=== PATIENT | female | born 2000 | race Caucasian/White ===

== ENCOUNTER 2019-03-29 22:33 | Inpatient (IN) | payer OTHER ==
[2019-03-29] MEDS ORDERED: SODIUM CHLORIDE 0.9% 1,000 ML IV STA (22:59)
[2019-03-29] MEDS ORDERED: NALOXONE 0.4 MG/ML 1 ML VIAL IV STA (23:00)
[2019-03-29 23:13] LABS: Basophils # (A) 0.1 k/uL (0-0.2); Basophils % (A) 1 %; Eosinophils # (A) 0.2 k/uL (0-0.7); Eosinophils % (A) 2 %; HCT 43.8 % (34.0-46.0); HGB 14.3 gm/dL (11.4-16.0); Lymphocytes # (A) 4.7 k/uL (1.0-4.8); Lymphocytes % (A) 38 %; MCH 29.9 pg (25.0-35.0); MCHC 32.7 g/dL (31.0-37.0); MCV 91.5 fL (80.0-100.0); Mean Platelet Volume 7.1; Monocytes # (A) 0.6 k/uL (0-1.0); Monocytes % (A) 5 %; Neutrophils # (A) 6.3 k/uL (1.3-7.7); Neutrophils % (A) 52 %; Platelet Count 303 k/uL (150-450); RBC 4.79 m/uL (3.80-5.40); WBC 12.3 k/uL (4.0-11.0)
--- NOTE | 2019-03-29 23:13 | ED ---
Overdose HPI - General Chief Complaint: Overdose Stated Complaint: Overdose Time Seen by Provider: 03/29/19 22:48 Source: patient Mode of arrival: wheelchair Limitations: altered mental status - History of Present Illness Initial Comments: Patient is 18-year-old woman reportedly with history of bipolar disorder, who was recently changed from her previous psychiatric medicine to lithium. The history is from the patient's grandmother as the patient presents with suspected delirium. Patient's grandmother states that the patient recently had a breakup in her relationship. Over the past few days to a week she has also displayed some change from her baseline, namely she has been somewhat paranoid and then describing conspiracy there is about people working against her. Tonight she reportedly overdosed a little over an hour before they arrived here. Patient reportedly had taken all of her lithium and also possibly some clonidine. Again the patient is delirious and not able to add any history. MD Complaint: other (Suspected overdose) -: unknown How Overdose Was Discovered: family/friend present at time Context: Intentional Overdose: relationship problems Treatments Prior to Arrival: none - Related Data Home Medications Medication Instructions Recorded Confirmed Cholecalciferol [Vitamin D3 (25 5,000 unit PO DAILY 03/29/19 03/29/19 Mcg = 1000 Iu)] Cyanocobalamin (Vitamin B-12) 1,000 mcg PO DAILY 03/29/19 03/29/19 [Vitamin B-12] Ibuprofen [Motrin] 800 mg PO TID PRN 03/29/19 03/29/19 My[place]le Carbonate ER [Lithobid] 450 mg PO HS 03/29/19 03/29/19 cloNIDine HCL [Catapres] 0.1 mg PO HS 03/29/19 03/29/19 Allergies Allergy/AdvReac Type Severity Reaction Status Date / Time Milk Containing Products Allergy Unknown Verified 03/29/19 22:48 [Dairy] Childhood Review of Systems ROS Statement: Those systems with pertinent positive or pertinent negative responses have been documented in the HPI. ROS Other: All systems not noted in ROS Statement are negative. Limitations: ROS unobtainable due to patients medical condition Respiratory: Denies: dyspnea Cardiovascular: Denies: chest pain Gastrointestinal: Denies: abdominal pain Neurological: Denies: headache Psychiatric: Reports: suicidal thoughts, other (Paranoia and delusional thoughts) Past Medical History Past Medical History: No Reported History History of Any Multi-Drug Resistant Organisms: None Reported Past Surgical History: No Surgical Hx Reported Past Psychological History: Bipolar, Depression Smoking Status: Current some day smoker Past Alcohol Use History: None Reported Past Drug Use History: Marijuana General Exam Limitations: altered mental status General appearance: obtunded Head exam: Present: atraumatic, normocephalic Eye exam: Present: normal appearance. Absent: scleral icterus, conjunctival injection Pupils: Present: miosis ENT exam: Present: mucous membranes dry Neck exam: Present: normal inspection, other (No evidence of trauma). Absent: tenderness Respiratory exam: Present: normal lung sounds bilaterally. Absent: respiratory distress, wheezes, rales, rhonchi, stridor Cardiovascular Exam: Present: regular rate, normal rhythm, normal heart sounds. Absent: systolic murmur, diastolic murmur, rubs, gallop GI/Abdominal exam: Present: soft. Absent: distended, tenderness, guarding, rebound, rigid, mass Extremities exam: Present: normal inspection, normal capillary refill. Absent: pedal edema, calf tenderness Back exam: Present: normal inspection. Absent: CVA tenderness (R), CVA tenderness (L) Neurological exam: Present: altered, reflexes normal, other (GCS is 11 (E=2, V=4, M=5). Patient not able to cooperate with neurologic exam due to altered mental status). Absent: motor sensory deficit Skin exam: Present: warm, dry, intact, normal color. Absent: rash Course Vital Signs 03/29/19 03/29/19 03/29/19 22:38 23:00 23:19 Temperature 97.5 F L Pulse Rate 100 75 Respiratory 8 L 20 Rate Blood Pressure 143/113 168/121 O2 Sat by Pulse 99 100 Oximetry 03/29/19 03/29/19 03/30/19 23:30 23:50 00:00 Temperature Pulse Rate 71 89 74 Respiratory 12 Rate Blood Pressure 177/130 175/131 175/131 O2 Sat by Pulse 99 99 100 Oximetry 03/30/19 03/30/19 03/30/19 00:30 01:00 01:30 Temperature Pulse Rate 70 71 Respiratory 20 Rate Blood Pressure 157/140 172/133 170/134 O2 Sat by Pulse 100 100 99 Oximetry 03/30/19 03/30/19 03/30/19 02:00 02:30 03:00 Temperature Pulse Rate Respiratory 76 H 75 H 78 H Rate Blood Pressure 164/137 176/134 163/126 O2 Sat by Pulse 100 99 100 Oximetry 03/30/19 03/30/19 03:30 04:00 Temperature Pulse Rate Respiratory 20 18 Rate Blood Pressure 172/130 164/113 O2 Sat by Pulse 100 100 Oximetry Medical Decision Making - Medical Decision Making Patient is 18-year-old woman here for acute lithium overdose. Case is discussed with poison control. They would like serial lithium levels approximately every 4 hours. They recommend hydration with saline at 200 mL per hour. Should the patient become symptomatic, including tremor, hyperreflexia, seizure, other symptoms or signs, dialysis to be arranged. Case discussed with Dr. Estrada, will be admitting physician. - Lab Data Result diagrams: 03/29/19 22:57 03/29/19 22:57 Lab Results 03/29/19 03/29/19 03/29/19 Range/Units 22:57 22:57 23:30 WBC 12.3 H (4.0-11.0) k/uL RBC 4.79 (3.80-5.40) m/uL Hgb 14.3 (11.4-16.0) gm/dL Hct 43.8 (34.0-46.0) % MCV 91.5 (80.0-100.0) fL MCH 29.9 (25.0-35.0) pg MCHC 32.7 (31.0-37.0) g/dL RDW 13.0 (11.5-15.5) % Plt Count 303 (150-450) k/uL Neutrophils % 52 % Lymphocytes % 38 % Monocytes % 5 % Eosinophils % 2 % Basophils % 1 % Neutrophils # 6.3 (1.3-7.7) k/uL Lymphocytes # 4.7 (1.0-4.8) k/uL Monocytes # 0.6 (0-1.0) k/uL Eosinophils # 0.2 (0-0.7) k/uL Basophils # 0.1 (0-0.2) k/uL Sodium 140 (137-145) mmol/L Potassium 4.2 (3.5-5.1) mmol/L Chloride 106 (98-107) mmol/L Carbon Dioxide 24 (22-30) mmol/L Anion Gap 10 mmol/L BUN 15 (7-17) mg/dL Creatinine 0.78 (0.52-1.04) mg/dL Est GFR (CKD-EPI)AfAm >90 (>60 ml/min/1.73 sqM) Est GFR (CKD-EPI)NonAf >90 (>60 ml/min/1.73 sqM) Glucose 112 H (74-99) mg/dL Calcium 9.8 (8.4-10.2) mg/dL Total Bilirubin 0.8 (0.2-1.3) mg/dL AST 23 (14-36) U/L ALT 20 (9-52) U/L Alkaline Phosphatase 50 (38-126) U/L Total Protein 8.1 (6.3-8.2) g/dL Albumin 4.9 (3.5-5.0) g/dL Urine Color Yellow Urine Appearance Clear (Clear) Urine pH 7.5 (5.0-8.0) Ur Specific [place] 1.030 (1.001-1.035) Urine Protein Trace H (Negative) Urine Glucose (UA) Negative (Negative) Urine Ketones Negative (Negative) Urine Blood Negative (Negative) Urine Nitrite Negative (Negative) Urine Bilirubin Negative (Negative) Urine Urobilinogen 4.0 (<2.0) mg/dL Ur Leukocyte Esterase Negative (Negative) Urine HCG, Qual (Not Detectd) Salicylates <1.0 mg/dL Urine Opiates Screen Not Detected (NotDetected) Ur Oxycodone Screen Not Detected (NotDetected) Urine Methadone Screen Not Detected (NotDetected) Ur Propoxyphene Screen Not Detected (NotDetected) Acetaminophen <10.0 ug/mL Ur Barbiturates Screen Not Detected (NotDetected) U Tricyclic Antidepress Not Detected (NotDetected) Ur Phencyclidine Scrn Not Detected (NotDetected) Ur Amphetamines Screen Not Detected (NotDetected) U Methamphetamines Scrn Not Detected (NotDetected) U Benzodiazepines Scrn Not Detected (NotDetected) [place]le 0.8 mmol/L Urine Cocaine Screen Not Detected (NotDetected) U Marijuana (THC) Screen Detected H (NotDetected) Serum Alcohol <10 mg/dL 03/29/19 03/30/19 Range/Units 23:30 02:20 WBC (4.0-11.0) k/uL RBC (3.80-5.40) m/uL Hgb (11.4-16.0) gm/dL Hct (34.0-46.0) % MCV (80.0-100.0) fL MCH (25.0-35.0) pg MCHC (31.0-37.0) g/dL RDW (11.5-15.5) % Plt Count (150-450) k/uL Neutrophils % % Lymphocytes % % Monocytes % % Eosinophils % % Basophils % % Neutrophils # (1.3-7.7) k/uL Lymphocytes # (1.0-4.8) k/uL Monocytes # (0-1.0) k/uL Eosinophils # (0-0.7) k/uL Basophils # (0-0.2) k/uL Sodium (137-145) mmol/L Potassium (3.5-5.1) mmol/L Chloride (98-107) mmol/L Carbon Dioxide (22-30) mmol/L Anion Gap mmol/L BUN (7-17) mg/dL Creatinine (0.52-1.04) mg/dL Est GFR (CKD-EPI)AfAm (>60 ml/min/1.73 sqM) Est GFR (CKD-EPI)NonAf (>60 ml/min/1.73 sqM) Glucose (74-99) mg/dL Calcium (8.4-10.2) mg/dL Total Bilirubin (0.2-1.3) mg/dL AST (14-36) U/L ALT (9-52) U/L Alkaline Phosphatase (38-126) U/L Total Protein (6.3-8.2) g/dL Albumin (3.5-5.0) g/dL Urine Color Urine Appearance (Clear) Urine pH (5.0-8.0) Ur Specific [place] (1.001-1.035) Urine Protein (Negative) Urine Glucose (UA) (Negative) Urine Ketones (Negative) Urine Blood (Negative) Urine Nitrite (Negative) Urine Bilirubin (Negative) Urine Urobilinogen (<2.0) mg/dL Ur Leukocyte Esterase (Negative) Urine HCG, Qual Not Detected (Not Detectd) Salicylates mg/dL Urine Opiates Screen (NotDetected) Ur Oxycodone Screen (NotDetected) Urine Methadone Screen (NotDetected) Ur Propoxyphene Screen (NotDetected) Acetaminophen ug/mL Ur Barbiturates Screen (NotDetected) U Tricyclic Antidepress (NotDetected) Ur Phencyclidine Scrn (NotDetected) Ur Amphetamines Screen (NotDetected) U Methamphetamines Scrn (NotDetected) U Benzodiazepines Scrn (NotDetected) [place]le 3.1 H* mmol/L Urine Cocaine Screen (NotDetected) U Marijuana (THC) Screen (NotDetected) Serum Alcohol mg/dL - EKG Data -: EKG Interpreted by Me EKG shows normal: sinus rhythm, intervals (Normal), QRS complexes (Normal), ST-T waves (Normal) Rate: normal (Rate 77 bpm) When compared to previous EKG there are: no significant change Interpretation: other (Possible biatrial enlargement) Critical Care Time Critical Care Time: Yes (40 minutes) Disposition Clinical Impression: [place]le overdose Disposition: ADMITTED IP TO THIS [facility] Condition: Serious
[2019-03-29 23:23] LABS: ALT 20 U/L (9-52); AST 23 U/L (14-36); Acetaminophen <10.0 ug/mL; Albumin 4.9 g/dL (3.5-5.0); Alcohol <10 mg/dL; Alkaline Phosphatase 50 U/L (38-126); Blood Urea Nitrogen 15 mg/dL (7-17); Calcium 9.8 mg/dL (8.4-10.2); Carbon Dioxide 24 mmol/L (22-30); Glucose 112 mg/dL (74-99); Lithium 0.8 mmol/L; Salicylate <1.0 mg/dL; Total Bilirubin 0.8 mg/dL (0.2-1.3); Total Protein 8.1 g/dL (6.3-8.2)
--- NOTE | 2019-03-29 23:27 | XR ---
EXAM: XR Chest, 1 View CLINICAL HISTORY: ITS.REASON XR Reason: overdose TECHNIQUE: Frontal view of the chest. COMPARISON: No relevant prior studies available. FINDINGS: Lungs: Unremarkable. No consolidation. Pleural space: Unremarkable. No pneumothorax. Heart: Unremarkable. No cardiomegaly. Mediastinum: Unremarkable. Bones/joints: Unremarkable. IMPRESSION: No acute cardiopulmonary findings.
[2019-03-29 23:41] LABS: Anion Gap 10 mmol/L; Chloride 106 mmol/L (98-107); Potassium 4.2 mmol/L (3.5-5.1); Sodium 140 mmol/L (137-145)
[2019-03-30] MEDS ORDERED: ONDANSETRON 4 MG/2 ML VIAL IVP STA (00:01)
[2019-03-30 00:02] LABS: Appearance,Urine Clear (Clear); Bilirubin,Urine Negative (Negative); Blood,Urine Negative (Negative); Color,Urine Yellow; Glucose,Urine (UA) Negative (Negative); Ketones,Urine Negative (Negative); Leukocyte Esterase,Urine Negative (Negative); Nitrite,Urine Negative (Negative); PH, Urine 7.5 (5.0-8.0); Protein,Urine Trace (Negative)
[2019-03-30 00:16] LABS: Amphetamine Screen,Urine Not Detected (NotDetected); Barbiturate Screen,Urine Not Detected (NotDetected); Benzodiazepines Screen,Urine Not Detected (NotDetected); Cocaine Screen,Urine Not Detected (NotDetected); Methadone Screen, Urine Not Detected (NotDetected); Opiate Screen,Urine Not Detected (NotDetected); Oxycodone Screen, Urine Not Detected (NotDetected); Phencyclidine Screen,Urine Not Detected (NotDetected); Tricyclic Antidepressant,Urine Not Detected (NotDetected); Urn Cannabinoid Scrn Detected (NotDetected)
[2019-03-30] MEDS ORDERED: PROMETHAZINE INJ 25 MG in SODIUM CHLORIDE 0.9% 50 ML IVPB ONE (02:30)
[2019-03-30] MEDS ORDERED: SODIUM CHLORIDE 0.9% 1,000 ML IV STA (03:35)
[2019-03-30] MEDS ORDERED: NALOXONE 0.4 MG/ML 1 ML VIAL IV PRN (04:49)
[2019-03-30] MEDS ORDERED: diphenhydrAMINE 50 MG/ML 1 ML VIAL IVP STA (05:46)
--- NOTE | 2019-03-30 06:46 | P.HPIM ---
History of Present Illness H&P Date: 03/30/19 Chief Complaint: drug overdose 18-year-old female with history of bipolar disorder. Patient is delirious unable to provide any meaningful history History obtained by talking to the mother and reviewing medical records and talking to the ER doctor Seems like the patient has been living with her grandmother, she recently switched medications for her bipolar disorder by her psychiatrist and was placed on lithium. Seems like the patient came to her grandmother admitting that she has overdosed on lithium and seeking help. Grandmother drove her to the ER. Grandmother indicated that the patient has been going through a breakup in her relationship. She also noticed that the patient has been paranoid recently.In the emergency department she was found to be delirious with altered mental status. Poison control was notified recommended close monitoring of the femur l evel electrolytes and aggressive IV fluid hydration. Patient has been receiving IV fluid, lithium level has been increasing. Poison control has been notified and recommended increasing IV fluid hydration to 200 mL/h. And to continue to monitor lithium level of it continues to rise patient might require dialysis. grandmother also indicated that in addition to patient taking all her lithium, she probably also overdose on clonidine this could not be verified at this time. Review of Systems ROS unobtainable: due to mental status Past Medical History Past Medical History: No Reported History Additional Past Medical History / Comment(s): history of bipolar disorder History of Any Multi-Drug Resistant Organisms: None Reported Past Surgical History: No Surgical Hx Reported Past Psychological History: Bipolar, Depression Smoking Status: Current some day smoker Past Alcohol Use History: None Reported Past Drug Use History: Marijuana - Past Family History Mother Family Medical History: No Reported History Additional Family Medical History / Comment(s): history of heart disease and family Father Family Medical History: No Reported History Medications and Allergies Home Medications Medication Instructions Recorded Confirmed Type Cholecalciferol [Vitamin D3 (25 5,000 unit PO DAILY 03/29/19 03/29/19 History Mcg = 1000 Iu)] Cyanocobalamin (Vitamin B-12) 1,000 mcg PO DAILY 03/29/19 03/29/19 History [Vitamin B-12] Ibuprofen [Motrin] 800 mg PO TID PRN 03/29/19 03/29/19 History [place] Carbonate ER [Lithobid] 450 mg PO HS 03/29/19 03/29/19 History cloNIDine HCL [Catapres] 0.1 mg PO HS 03/29/19 03/29/19 History Allergies Allergy/AdvReac Type Severity Reaction Status Date / Time Milk Containing Products Allergy Unknown Verified 03/29/19 22:48 [Dairy] Childhood Physical Exam Vitals: Vital Signs Temp Pulse Resp BP Pulse Ox 03/30/19 05:30 70 170/133 100 03/30/19 05:00 71 172/78 100 03/30/19 04:30 75 177/132 100 03/30/19 04:00 18 164/113 100 03/30/19 03:30 20 172/130 100 03/30/19 03:00 78 H 163/126 100 03/30/19 02:30 75 H 176/134 99 03/30/19 02:00 78 20 164/137 100 03/30/19 01:30 20 170/134 99 03/30/19 01:00 71 172/133 100 03/30/19 00:30 70 157/140 100 03/30/19 00:00 74 175/131 100 03/29/19 23:50 89 12 175/131 99 03/29/19 23:30 71 177/130 99 03/29/19 23:19 20 03/29/19 23:00 75 168/121 100 03/29/19 22:38 97.5 F L 100 8 L 143/113 99 Intake and Output 03/29/19 03/29/19 03/30/19 14:59 22:59 06:59 Output Total 60 Balance -60 Output: Urine 60 Straight 60 Other: Weight 52.163 kg Constitutional: No acute distress, very lethargic, easily arousable, delirious Eyes: Anicteric sclerae, moist conjunctiv Pupils equal round reactive to light ENMT: NC/AT Oropharynx clear, no erythema, orexudates Neck: Supple, FROM, no masses, or JVD No carotid bruits No thyromegaly Lungs: Clear to auscultation Clear to percussion Normal respiratory effort, no accessory muscle use Cardiovascular: Heart regular in rate and rhythm, No murmurs, gallops, or rubs No peripheral edema Abdominal: Soft Nontender, no guarding, rebound or rigidity Abdomen moving with respiration Normoactive bowel sounds No hepatomegaly, No splenomegaly No palpable mass No abdominal wall hernia noted Skin: erythematous hives around patient mouthand neck Chest from the front and back abdomen from the front and back both upper and lower extremities are clear no evidence of any rash or hives Tongue of normal size, mucous membranes around the mouth and eyes are unremarkable Normal temperature, tone, texture, turgor No induration No subcutaneous nodules No r lesions No ulcers Extremities: No digital cyanosis No clubbing Pedal pulses intact and symmetrical Radial pulses intact and symmetrical No calf tenderness Psychiatric: lethargic ,easily arousable, delirious Neuro patient did not cooperate with neurologic exam Reflexes are absent over the knees and elbows No myoclonus Spasticity Unable to assess cranial nerves or sensation or strength due to mental status Lymphatics: no palpable cervical or supraclavicular , or inguinal lymph nodes Results CBC & Chem 7: 03/29/19 22:57 03/29/19 22:57 Labs: Abnormal Lab Results - Last 24 Hours (Table) 03/29/19 03/29/19 03/29/19 Range/Units 22:57 22:57 23:30 WBC 12.3 H (4.0-11.0) k/uL Glucose 112 H (74-99) mg/dL Urine Protein Trace H (Negative) [place]ak mmol/L U Marijuana (THC) Screen Detected H (NotDetected) 03/30/19 Range/Units 02:20 WBC (4.0-11.0) k/uL Glucose (74-99) mg/dL Urine Protein (Negative) Pleak 3.1 H* mmol/L U Marijuana (THC) Screen (NotDetected) Assessment and Plan Assessment: 18-year-old female with history of bipolar disorder Patient admitted as an inpatient with anticipated length of stay more than 48 hours due to lithium overdosing and possible suicidal attempt. Bruising control was notified and assisting with her management Plan: acute metabolic encephalopathy with delirium lithium overdose poison control assisting with management Aggressive IV fluid hydration Monitor frequently can level patient might require hemodialysis if levels continue to rise EKG unremarkable showing only possible biatrial enlargement Suicide attempt with drug overdose Bedside sitter Suicide precautions Psych evaluation history of bipolar disorder Hives of unknown origin rule out ALLERGIC reaction Benadryl as needed DVT prophylaxis heparin subcu 3 times a day Surrogate decision-maker: patient mother/grandmother CODE STATUS:full code Discussed with: Patient, ER, RN Anticipated discharge: 48-[address]: mental health unit A total of 60 minutes was spent on the care of this complex patient more than 50% of the time was spent in counseling and care coordination.
[2019-03-30 06:47] LABS: Basophils % (A) 0 %; Eosinophils # (A) 0.1 k/uL (0-0.7); Eosinophils % (A) 1 %; HCT 42.2 % (34.0-46.0); HGB 13.3 gm/dL (11.4-16.0); Lymphocytes # (A) 1.1 k/uL (1.0-4.8); Lymphocytes % (A) 10 %; MCH 29.8 pg (25.0-35.0); MCHC 31.6 g/dL (31.0-37.0); MCV 94.5 fL (80.0-100.0); Mean Platelet Volume 6.8; Monocytes # (A) 0.2 k/uL (0-1.0); Monocytes % (A) 1 %; Neutrophils % (A) 87 %; Platelet Count 287 k/uL (150-450); RBC 4.46 m/uL (3.80-5.40); RDW 12.1 % (11.5-15.5); WBC 11.4 k/uL (4.0-11.0)
[2019-03-30] MEDS: SODIUM CHLORIDE 0.9% 1,000 ML IV SCH ×4 (06:54→21:09)
[2019-03-30 06:57] LABS: Anion Gap 7 mmol/L; Blood Urea Nitrogen 12 mg/dL (7-17); Calcium 9.2 mg/dL (8.4-10.2); Carbon Dioxide 23 mmol/L (22-30); Chloride 109 mmol/L (98-107); Glucose 114 mg/dL (74-99); Sodium 139 mmol/L (137-145)
[2019-03-30 07:06] LABS: Lithium 4.3 mmol/L
[2019-03-30] MEDS ORDERED: hydrALAZINE HCL 20 MG/ML 1 ML VIAL IVP PRN (07:21)
[2019-03-30] MEDS: HEPARIN SODIUM,PORCINE 5,000 UNIT/ML 1 ML VIAL SQ SCH ×3 (09:23→23:11)
[2019-03-30] MEDS ORDERED: LIDOCAINE 1% INJ 10MG/ML (20 ML MDV) ONE ×2 (09:31→10:40)
[2019-03-30] MEDS ORDERED: IV FLUID CONTINUATION 300 ML IV ONE (10:04)
--- NOTE | 2019-03-30 10:13 | P.NPCON ---
History of Present Illness - Reason for Consult acute renal failure - History of Present Illness Reason for consultation: [place] toxicity History of present illness: Patient is a 18-year-old female seen in renal consultation for lithium toxicity. Patient is currently not a reliable historian. Her mother is present at bedside. According to the mother the patient has history of bipolar disorder and was started on lithium a few months ago. Neither the patient nor her mother know the dose of lithium. The patient tried to commit suicide by taking lithium. However it is not known how much lithium she took. Patient's lithium level has been rising and is up to 4.3 this morning. Patient mentation is not at baseline. Hemodynamically she is stable. No vomiting or diarrhea. Patient states she is hungry and wants to eat. Vital signs are stable. General: The patient appeared well nourished and normally developed. HEENT: Head exam is unremarkable. Neck is without jugular venous distension. LUNGS: Lungs are clear to auscultation and percussion. Breath sounds decreased. HEART: Rate and Rhythm are regular. First and second heart sounds normal. No murmurs, rubs or gallops. ABDOMEN: Abdominal exam reveals normal bowel sounds. Non-tender and non- distended. No evidence of peritonitis. EXTREMITITES: No clubbing, cyanosis, or edema. Past Medical History Past Medical History: No Reported History Additional Past Medical History / Comment(s): history of bipolar disorder History of Any Multi-Drug Resistant Organisms: None Reported Past Surgical History: No Surgical Hx Reported Past Anesthesia/Blood Transfusion Reactions: No Reported Reaction Past Psychological History: Bipolar, Depression Smoking Status: Current some day smoker Past Alcohol Use History: None Reported Past Drug Use History: Marijuana - Past Family History Mother Family Medical History: No Reported History Additional Family Medical History / Comment(s): history of heart disease and family Father Family Medical History: No Reported History Medications and Allergies Home Medications Medication Instructions Recorded Confirmed Type Cholecalciferol [Vitamin D3 (25 5,000 unit PO DAILY 03/29/19 03/29/19 History Mcg = 1000 Iu)] Cyanocobalamin (Vitamin B-12) 1,000 mcg PO DAILY 03/29/19 03/29/19 History [Vitamin B-12] Ibuprofen [Motrin] 800 mg PO TID PRN 03/29/19 03/29/19 History [place] Carbonate ER [Lithobid] 450 mg PO HS 03/29/19 03/29/19 History cloNIDine HCL [Catapres] 0.1 mg PO HS 03/29/19 03/29/19 History Allergies Allergy/AdvReac Type Severity Reaction Status Date / Time Milk Containing Products Allergy Unknown Verified 03/29/19 22:48 [Dairy] Childhood Physical Exam Vitals: Vital Signs Temp Pulse Pulse Resp BP BP Pulse Ox 03/30/19 08:00 98.2 F 78 12 162/108 98 03/30/19 06:20 97.6 F 66 18 170/116 99 03/30/19 05:30 70 170/133 100 03/30/19 05:00 71 172/78 100 03/30/19 04:30 75 177/132 100 03/30/19 04:00 18 164/113 100 03/30/19 03:30 75 20 172/130 100 03/30/19 03:00 78 20 163/126 100 03/30/19 02:30 71 18 176/134 99 03/30/19 02:00 78 20 164/137 100 03/30/19 01:30 20 170/134 99 03/30/19 01:00 71 172/133 100 03/30/19 00:30 70 157/140 100 03/30/19 00:00 74 175/131 100 03/29/19 23:50 89 12 175/131 99 03/29/19 23:30 71 177/130 99 03/29/19 23:19 20 03/29/19 23:00 75 168/121 100 03/29/19 22:38 97.5 F L 100 8 L 143/113 99 Intake and Output 03/29/19 03/30/19 03/30/19 22:59 06:59 14:59 Intake Total 2100 Output Total 60 Balance 2040 Intake: Amount of Fluid Infused ( 2100 ml) Output: Urine 60 Straight 60 Other: # Voids 1 Weight 52.163 kg Results - Lab Results Most recent lab results Calcium 9.2 mg/dL (8.4-10.2) 03/30/19 06:28 03/30/19 06:34 03/30/19 06:28 Assessment and Plan Plan: Assessment: 1. Acute lithium toxicity with encephalopathy. [place] level 4.3 today. 2. History of bipolar disorder. 3. Suicidal attempt. 4. Benign hypertension. Blood pressures currently high. Plan: Due to altered mental status and rising lithium level, I will arrange for emergent hemodialysis today. Vascular surgery has been consulted for dialysis catheter placement. Repeat lithium level this evening and again tomorrow morning. Maintain normal saline at 200 mL an hour. Maintain hydralazine. The case was discussed with the primary team. Thank you for the consultation. I will continue to follow the patient with you during her hospital stay.
--- NOTE | 2019-03-30 10:34 | P.PN ---
Progress Note - Text Progress Note Date: 03/30/19 briefly this is a 18-year-old female with a history of bipolar disorder who is admitted with suicidal attempt and severe lithium toxicity after taking an unknown amount of lithium, the patient presented with toxic encephalopathy and was noted to be delirious, based on initial workup of the patient was found to be severely encephalopathy secondary to lithium toxicity trending up to 4.3 which is a emergent indication for emergent dialysis. The case was discussed with nephrology Dr. Lynn and vascular surgery Dr. Olmedo along with her mother Rachna Vuong who is in agreement with the plan of care. will plan to sedate the patient, intubate the patient said that she can't have emergent vascular access for planned hemodialysis later today
[2019-03-30] MEDS ORDERED: fentaNYL (PF) 50 MCG/ML 2 ML AMP ONE (10:40)
[2019-03-30] MEDS ORDERED: PROPOFOL 10 MG/ML 20 ML VIAL IV ONE (10:40)
[2019-03-30] MEDS ORDERED: HEPARIN SODIUM 1,000 UN/ML (10ML VL) ONE (11:27)
[2019-03-30] MEDS ORDERED: HEPARIN SODIUM 1,000 UN/ML (10ML VL) IV ONE (11:35)
[2019-03-30 12:17] LABS: Anion Gap 6 mmol/L; Blood Urea Nitrogen 10 mg/dL (7-17); Calcium 8.6 mg/dL (8.4-10.2); Carbon Dioxide 22 mmol/L (22-30); Chloride 111 mmol/L (98-107); Glucose 80 mg/dL (74-99); Potassium 3.7 mmol/L (3.5-5.1); Sodium 139 mmol/L (137-145)
[2019-03-30 12:30] LABS: Lithium 3.1 mmol/L
[2019-03-30 12:40] LABS: Glucose,Whole Blood 86 mg/dL (75-99)
[2019-03-30 12:45] LABS: ABG Base Excess 0.9 mmol/L; ABG HCO3 26 mmol/L (21-25); ABG Oxygen Saturation 99.8 % (94-97); ABG PCO2 47 mmHg (35-45); ABG PH 7.36 (7.35-7.45); ABG PO2 >400 mmHg (83-108); ABG TCO2 28 mmol/L (19-24)
[2019-03-30] MEDS: PROPOFOL 1,000 MG in EMPTY BAG 1 BAG IV SCH ×4 (12:45→23:48)
--- NOTE | 2019-03-30 13:13 | IR ---
EXAMINATION TYPE: IR cvc insert non tunneled DATE OF EXAM: 03/30/2019 COMPARISON: NONE HISTORY: Dialysis catheter placement Fluoroscopy support supplied to the referring clinician. See dictated report from vascular surgery, 0.5 minutes fluoroscopy time, 376 intraoperative images document the procedure.
--- NOTE | 2019-03-30 13:26 | XR ---
EXAMINATION TYPE: XR chest 1V portable DATE OF EXAM: 03/30/2019 COMPARISON: Prior chest x-ray 03/29/2019 HISTORY: Intubated TECHNIQUE: Single frontal view of the chest is obtained. FINDINGS: Endotracheal tube and NG tube are overlying appropriate positions. Side-port of NG tube is at the level of the gastroesophageal junction. There are overlying cardiac leads. No evident airspac e disease, pneumothorax, or pleural effusion. Cardiomediastinal silhouette, pulmonary vascularity and bethany are within normal limits. IMPRESSION: Interval intubation.
[2019-03-30 15:47] LABS: Anion Gap 4 mmol/L; Blood Urea Nitrogen 3 mg/dL (7-17); Calcium 8.4 mg/dL (8.4-10.2); Carbon Dioxide 32 mmol/L (22-30); Chloride 100 mmol/L (98-107); Glucose 84 mg/dL (74-99); Lithium 0.9 mmol/L; Sodium 136 mmol/L (137-145)
--- NOTE | 2019-03-30 18:25 | CONS ---
CONSULTATION PULMONARY CRITICAL CARE CONSULTATION: DATE OF SERVICE: 03/30/2019 This is a 18-year-old female with a history of anxiety, depression, and bipolar disorder who was recently started on lithium. The patient apparently recently had a break-up with her significant other and apparently took unknown quantity of lithium. This apparently was a suicide attempt. Anyway, the patient was admitted, seen in the emergency room, was found to be lithium toxic. She apparently was acting strange when she first started the medication. She was apparently agitated and paranoid. The patient in the emergency room apparently did not want to undergo dialysis for the lithium overdose, so they took her to the catheterization lab. They intubated her and they then placed a dialysis catheter in her. She is currently undergoing dialysis. The patient apparently was not able to make any decisions for herself and apparently her mother or significant other family member made the decision for her. Anyway, she is currently sedated on propofol at 60 mcg/kg per minute. She is on the ventilator. She is on the volume assist-control mode rate of 12, tidal volume 400, FiO2 100%, PEEP of 5. Blood gases show pO2 of greater than 400, a PaCO2 of 47, and pH 7.35. The FiO2 was dropped from 100% to 40%. She has a very mild metabolic acidosis. She apparently has a history of bipolar disorder, chronic tobacco use and anxiety with depression. She apparently also must use marijuana as her THC in the drug screen was positive. CURRENT MEDICATIONS: At home included lithium, Motrin, clonidine, vitamin B12, and D3. ALLERGIES: Include MILK CONTAINING PRODUCTS. MEDICAL HISTORY: Unremarkable say for bipolar disorder/anxiety and depression. No surgical history to report. SOCIAL HISTORY: Positive for chronic tobacco use and she apparently has a history of marijuana use. FAMILY HISTORY: Not noted. REVIEW OF SYSTEMS: Could not be obtained. She is currently intubated. PHYSICAL EXAMINATION: Current vital signs are reviewed. Temperature is 98.2, heart rate 78, respiratory rate 12, blood pressure 162/108, mean is 126, room air saturation 98%. Her saturations on the ventilator are 100%. Appears in no acute distress. Currently sedated. HEENT examination is grossly unremarkable. Mucous membranes are moist. There is an orally placed endotracheal tube and NG tube. NECK: Supple. Full range of motion. No adenopathy, thyromegaly or neck vein distention. CARDIOVASCULAR examination reveals regular rhythm rate. Heart rate 78. S1, S2 normal. No murmur. LUNGS: Clear. Breath sounds equal. No wheezes or rhonchi. ABDOMEN: Soft. Bowel sounds are heard. There is no masses or tenderness. EXTREMITIES: Intact. No cyanosis, clubbing, or edema. SKIN: Without rash. NEUROLOGIC examination could not be evaluated because of her current intubation and level of sedation. Chest x-ray shows clear lung [place]. LABS: Reviewed. White count 11.4, hemoglobin 13.3, hematocrit 42.2, platelet count 287,000. Blood gases have been noted. Her lithium level was initially 4.3 and followup was 3.1. Sodium 139, potassium 3.7, chloride 111, CO2 of 22. BUN and creatinine were 10 and 0.73. The rest of the labs look okay. Medications are reviewed. She is currently on chlorhexidine, subcu heparin, Apresoline, Narcan, Protonix and propofol for sedation. ASSESSMENT: 1. Suicide attempt with an overdose of lithium causing paranoid agitated behavior. 2. History of bipolar disorder. 3. History of anxiety/depression. 4. History of marijuana use. 5. History of chronic tobacco use. PLAN: The patient's vent settings were adjusted accordingly. The FiO2 was dropped from 100% to 40%. Everything else will stay the same. She will be maintained on the saline and the propofol. We will continue to monitor lithium level. Her prognosis is generally thought to be good. She is receiving hemodialysis currently. No additional recommendations are made. We will continue to watch her carefully. Hopeful extubation by tomorrow. MMODL / IJN: [id number] /
[2019-03-30] MEDS: POTASSIUM CHLORIDE 20 MEQ in WATER FOR INJECTION 1 100ML.BAG IVPB SCH ×2 (18:32→21:08)
[2019-03-30 19:40] LABS: Anion Gap 6 mmol/L; Blood Urea Nitrogen 3 mg/dL (7-17); Calcium 8.1 mg/dL (8.4-10.2); Carbon Dioxide 29 mmol/L (22-30); Chloride 102 mmol/L (98-107); Glucose 75 mg/dL (74-99); Potassium 3.1 mmol/L (3.5-5.1); Sodium 137 mmol/L (137-145)
--- NOTE | 2019-03-30 20:10 | PCN ---
PROCEDURE NOTE PREOP DIAGNOSIS: PROCEDURE DETAILS: Under anesthesia, dialysis catheter placed in right femoral approach. Patient was brought to the labor relations consultant. Right groin was prepped and drapes applied in the usual sterile manner. After that, ultrasound guided micropuncture introduced right common femoral vein. Micropuncture guidewire was passed and 4-Ind[place]ian dilator advanced on the top of the guidewire. Then we passed a regular guidewire. Then the dilator was then advanced and the dialysis catheters were advanced on the top of the guidewire and guidewire was removed. Flushed with heparin saline and hep-locked. Secured with 3-0 nylon. Dressing applied. The patient tolerated the procedure well. MMODL / IJN: [id number] /
--- NOTE | 2019-03-30 20:25 | CONS ---
DATE OF CONSULTATION: 03/30/2019 This is a 18-year-old female, history of bipolar and depression disorder. Patient on lithium. The patient came with . The level is 4.3. She has a lithium positive encephalopathy. The patient was seen in her room. She is very combative and she is refusing all procedures. The patient was seen by the hospitalist and discussed with the family. This is an emergency procedure. The patient will be intubated for placement of dialysis catheter and patient will be on intensive care unit for dialysis. MEDICAL HISTORY: History of benign hypertension, history of bipolar and history of depression with high level of the lithium. PHYSICAL EXAMINATION: NECK: Supple. CHEST: Clear. ABDOMEN: Soft. Femoral pulses are present. PLAN: Placement of a dialysis catheter as an emergency. Discussed with the mother and they all agreed. Risks and complications of bleeding, infection, thrombosis has been discussed. Thank you for the consultation. ARCELIA / ANGELAN: [id number] / [place]
[2019-03-30 20:35] LABS: Hepatitis B Surface AB- Quant 3.5 mIU/mL
[2019-03-30] MEDS: CHLORHEXIDINE GLUCONATE 15 ML CUP MUCOUS MEM SCH (21:09)
[2019-03-31] MEDS: SODIUM CHLORIDE 0.9% 1,000 ML IV SCH ×4 (02:16→23:33)
[2019-03-31] MEDS: PROPOFOL 1,000 MG in EMPTY BAG 1 BAG IV SCH ×3 (04:52→11:14)
[2019-03-31 05:22] LABS: ABG Base Excess 0.4 mmol/L; ABG HCO3 25 mmol/L (21-25); ABG PCO2 41 mmHg (35-45); ABG PO2 147 mmHg (83-108); ABG TCO2 27 mmol/L (19-24)
[2019-03-31 06:13] LABS: Basophils % (A) 0 %; Eosinophils # (A) 0.3 k/uL (0-0.7); Eosinophils % (A) 3 %; HGB 11.9 gm/dL (11.4-16.0); Lymphocytes % (A) 20 %; MCH 30.8 pg (25.0-35.0); MCHC 32.9 g/dL (31.0-37.0); MCV 93.4 fL (80.0-100.0); Mean Platelet Volume 7.2; Monocytes # (A) 0.6 k/uL (0-1.0); Monocytes % (A) 6 %; Neutrophils % (A) 70 %; Platelet Count 159 k/uL (150-450); RBC 3.86 m/uL (3.80-5.40); RDW 13.1 % (11.5-15.5); WBC 9.9 k/uL (4.0-11.0)
[2019-03-31 06:39] LABS: Anion Gap 5 mmol/L; Blood Urea Nitrogen 7 mg/dL (7-17); Calcium 8.3 mg/dL (8.4-10.2); Carbon Dioxide 24 mmol/L (22-30); Chloride 110 mmol/L (98-107); Glucose 78 mg/dL (74-99); Lithium 1.3 mmol/L; Magnesium 1.8 mg/dL (1.6-2.3); Phosphorus 3.1 mg/dL (2.5-4.5); Sodium 139 mmol/L (137-145)
--- NOTE | 2019-03-31 06:55 | XR ---
EXAMINATION TYPE: XR chest 1V portable DATE OF EXAM: 03/31/2019 COMPARISON: Prior chest x-ray 03/30/2019 HISTORY: Intubated TECHNIQUE: Single frontal view of the chest is obtained. FINDINGS: Endotracheal tube and NG tube are stable and overlying appropriate positions. No evident p neumothorax or pleural effusion. Heart size is normal. Minimal patchy basilar atelectatic changes.. IMPRESSION: Basilar atelectasis
[2019-03-31] MEDS: HEPARIN SODIUM,PORCINE 5,000 UNIT/ML 1 ML VIAL SQ SCH ×3 (08:10→23:37)
[2019-03-31] MEDS: CHLORHEXIDINE GLUCONATE 15 ML CUP MUCOUS MEM SCH ×2 (08:10→21:44)
[2019-03-31] MEDS: PANTOPRAZOLE 40 MG/10 ML VIAL IV SCH (08:11)
--- NOTE | 2019-03-31 09:29 | PN ---
PROGRESS NOTE DATE OF SERVICE: 03/31/2019 CRITICAL CARE TIME: 35 minutes. This is a 18-year-old female with an intentional overdose of lithium as a suicide attempt. She suffers from anxiety and depression as well as bipolar disorder. She apparently recently had a break-up with a significant other, and apparently took an unknown quantity of lithium. This was an apparent suicide attempt. The patient initially refused dialysis. She was apparently taken to the catheterization lab. She was sedated, intubated, and hemodialysis catheter was placed. She did undergo hemodialysis yesterday. We are not sure whether not she is going to have dialysis again today. We were still waiting for her morning lithium level. Her last lithium level was 1.2. It had actually gone down to 0.9, but then came back up a bit. Anyway, she is currently on the ventilator. She is on the volume assist-control mode rate of 12, tidal volume 400, FiO2 is 24%, PEEP of 5. Blood gases show pO2 of 147, pCO2 of 41, and pH 7.4. That was on 30%. The FiO2 was dropped down to 24%. She is getting 0.9 at 200 mL an hour and propofol at 70 mcg/kg per minute. She is resting comfortably. According to the nurse, she had a pretty uneventful night. PHYSICAL EXAMINATION: VITAL SIGNS: Current vital signs are reviewed. Temperature is 98.9, heart rate 71, respiratory rate 12, blood pressure 113/67, mean 82, saturations are 99% on 24% FiO2 and 5 of PEEP. She appears in no acute distress. She is currently sedated. HEENT examination is grossly unremarkable. Mucous membranes are moist. There is an orally placed endotracheal tube and NG tube. NECK: Supple. Full range of motion without adenopathy, thyromegaly or neck vein distention. CARDIOVASCULAR: Examination reveals regular rhythm and rate. Heart rate about 70 beats per minute. S1, S2 normal. No S3, S4, or murmur. LUNGS: Clear. Breath sounds equal. There are no wheezes, rhonchi, or crackles. ABDOMEN: Soft. Bowel sounds are noted. EXTREMITIES: Are intact. No cyanosis, clubbing, or edema. SKIN: Without rash. NEUROLOGIC: Examination could not be evaluated because the patient is currently sedated. LABS: Labs are reviewed. CBC is completely normal with a white count of 9.9, hemoglobin 11.9, hematocrit 36, and platelet count 159,000. Sodium 139, potassium 4, chloride 110, CO2 of 24. Anion gap 5. BUN 7, creatinine 0.75. [place] level has actually gone up to 1.3. Previously it was 1.2. We will wait for input from Nephrology. X-RAY: Chest x-ray is clear without any significant pulmonary disease. MEDICATIONS: Medications are reviewed. She is currently on chlorhexidine, subcu heparin, hydralazine, Narcan, Protonix and propofol. ASSESSMENT: 1. Status post lithium overdose as a suicide attempt in a patient with both anxiety and depression as well as bipolar disorder. 2. Status post intubation and mechanical ventilation for placement of a hemodialysis catheter. 3. Status post hemodialysis on March 30. 4. History of bipolar disorder. 5. History of anxiety/depression. 6. History of marijuana use. 7. History of chronic tobacco use. PLAN: Depending on what Nephrology wants to do with hemodialysis today, this will guide our current therapy. If no additional dialysis is warranted, then we will wake the patient up from the propofol, place her on PSV 5, CPAP of 5, and get her extubated in a timely fashion. If they want to do dialysis again today, the plan will be to keep her sedated, have them do dialysis and then extubate her after dialysis. Additional recommendations and suggestions are forthcoming. She is receiving GI and DVT prophylaxis. From the critical care standpoint, she is stable. No additional recommendations are made. We will continue to follow. CRITICAL CARE TIME: 35 minutes. ARCELIA / ANGELAN: [id number] /
--- NOTE | 2019-03-31 10:00 | P.PN ---
Subjective Patient is seen in follow-up for lithium toxicity. Patient underwent hemodialysis yesterday. [place] level this morning is 1.3. Patient's currently intubated. She is awake. GFR is at baseline. Vital signs are stable. General: The patient appeared well nourished and normally developed. Intubated. HEENT: Head exam is unremarkable. Neck is without jugular venous distension. LUNGS: Lungs are clear to auscultation and percussion. Breath sounds decreased. HEART: Rate and Rhythm are regular. First and second heart sounds normal. No murmurs, rubs or gallops. ABDOMEN: Abdominal exam reveals normal bowel sounds. Non-tender and non- distended. No evidence of peritonitis. EXTREMITITES: No clubbing, cyanosis, or edema. Objective - Vital Signs Vital signs: Vital Signs Temp 98.5 F 03/31/19 08:00 Pulse 96 03/31/19 08:00 Resp 15 03/31/19 08:00 BP 115/72 03/31/19 08:00 Pulse Ox 98 03/31/19 08:00 Intake & Output 03/30/19 03/31/19 03/31/19 18:59 06:59 18:59 Intake Total 2603.240 1680.781 471.569 Output Total 970 1135 75 Balance 958.279 1879.781 396.569 Weight 52.1 kg Intake: IV 200 1400 400 Sodium Chloride 0.9% 1, 1400 400 000 ml @ 200 mls/hr IV . Q5H [facility] Rx#:[id number] Intake, IV Titration 899.018 7652.781 71.569 Amount Potassium Chloride 20 meq 200 In Water For Injection 1 100ml.bag @ 50 mls/hr IVPB Q2H [facility] Rx#: [id number] Propofol 1,000 mg In 74.490 253.781 71.569 Empty Bag 1 bag @ Titrate IV .Q0M [facility] Rx#: [id number] Sodium Chloride 0.9% 1, 800 800 000 ml @ 200 mls/hr IV . Q5H [facility] Rx#:[id number] Hemodialysis 0 Output: Urine 970 1135 75 Hemodialysis 0 Other: Voiding Method Indwelling Catheter Indwelling Catheter Indwelling Catheter - Labs CBC & Chem 7: 03/31/19 05:32 03/31/19 05:32 Labs: Abnormal Lab Results - Last 24 Hours (Table) 03/30/19 03/30/19 03/30/19 Range/Units 11:34 12:43 15:17 ABG pCO2 47 H (35-45) mmHg ABG pO2 >400 H (83-108) mmHg ABG HCO3 26 H (21-25) mmol/L ABG Total CO2 28 H (19-24) mmol/L ABG O2 Saturation 99.8 H (94-97) % Sodium 136 L (137-145) mmol/L Potassium 3.0 L (3.5-5.1) mmol/L Chloride 111 H (98-107) mmol/L Carbon Dioxide 32 H (22-30) mmol/L BUN 3 L (7-17) mg/dL Creatinine 0.51 L (0.52-1.04) mg/dL Calcium (8.4-10.2) mg/dL [place] 3.1 H* mmol/L 03/30/19 03/31/19 03/31/19 Range/Units 19:05 05:18 05:32 ABG pCO2 (35-45) mmHg ABG pO2 147 H (83-108) mmHg ABG HCO3 (21-25) mmol/L ABG Total CO2 27 H (19-24) mmol/L ABG O2 Saturation 99.0 H (94-97) % Sodium (137-145) mmol/L Potassium 3.1 L (3.5-5.1) mmol/L Chloride 110 H (98-107) mmol/L Carbon Dioxide (22-30) mmol/L BUN 3 L (7-17) mg/dL Creatinine (0.52-1.04) mg/dL Calcium 8.1 L 8.3 L (8.4-10.2) mg/dL [place] mmol/L Assessment and Plan Plan: Assessment: 1. Acute lithium toxicity with encephalopathy. [place] level 4.3. Patient underwent hemodialysis on March 30. [place] level is 1.3 today which is up from 0.9 last night. Such rebound is expected. 2. History of bipolar disorder. 3. Suicidal attempt. 4. Benign hypertension. Controlled. Plan: I will decrease rate of normal saline to 100 mL an hour. Hemodialysis today. Plan to extubate after dialysis today.
--- NOTE | 2019-03-31 11:48 | P.PN ---
Subjective Progress Note Date: 03/31/19 Patient is seen and examined while sedated and intubated and on the mechanical ventilator with her mother Present at bedside. Patient has received 1 round of hemodialysis after having urgent temporary dialysis catheter placement yesterday, lithium level was as high as 4.3 now down to 1.3 this morning pos tdialysis. Patient continues to be sedated on propofol. Having good urine output, hypokalemia is been addressed and replace yesterday. Objective - Vital Signs Vital signs: Vital Signs Temp 98.5 F 03/31/19 08:00 Pulse 65 03/31/19 10:00 Resp 12 03/31/19 10:00 BP 115/72 03/31/19 10:00 Pulse Ox 99 03/31/19 10:00 Intake & Output 03/30/19 03/31/19 03/31/19 18:59 06:59 18:59 Intake Total 9584.021 3124.781 739.487 Output Total 970 1135 225 Balance 974.241 8348.781 514.487 Weight 52.1 kg Intake: IV 200 1400 600 Sodium Chloride 0.9% 1, 1400 600 000 ml @ 100 mls/hr IV . Q10H [facility] Rx#:[id number] Intake, IV Titration 858.372 5689.781 139.487 Amount Potassium Chloride 20 meq 200 In Water For Injection 1 100ml.bag @ 50 mls/hr IVPB Q2H [facility] Rx#: [id number] Propofol 1,000 mg In 74.490 253.781 139.487 Empty Bag 1 bag @ Titrate IV .Q0M [facility] Rx#: [id number] Sodium Chloride 0.9% 1, 800 800 000 ml @ 100 mls/hr IV . Q10H [facility] Rx#:[id number] Hemodialysis 0 Output: Urine 970 1135 225 Hemodialysis 0 Other: Voiding Method Indwelling Catheter Indwelling Catheter Indwelling Catheter - Exam Constitutional: No acute distress, conversant, pleasant Eyes: Anicteric sclerae, moist conjunctiva, no lid-lag, PERRLA ENMT: NC/AT,Oropharynx clear, no erythema, exudates Neck:Supple, FROM, no masses, or JVD, No carotid bruits; No thyromegaly Lungs: Clear to auscultation, Clear to percussion, Normal respiratory effort, no accessory muscle use Cardiovascular: Heart regular in rate and rhythm, No murmurs, gallops, or rubs no peripheral edema Abdominal: Soft Nontender, nom distended, no guarding, no rebound or rigidity, Normoactive bowel sounds No hepatomegaly, No splenomegaly, No palpable mass No abdominal wall hernia noted Skin: Normal temperature, tone, texture, turgor, No induration No subcutaneous nodules, No rash, lesions, No ulcers Extremities:No digital cyanosis No clubbing, Pedal pulses intact and symmetrical Radial pulses intact and symmetrical Normal gait and station, No calf tenderness Psychiatric: Unable to address but previous suicide attempt with intentional overdose with lithium Neuro: Unable to evaluate fully patient sedated on propofol - Labs CBC & Chem 7: 03/31/19 05:32 03/31/19 05:32 Labs: Abnormal Lab Results - Last 24 Hours (Table) 03/30/19 03/30/19 03/30/19 Range/Units 11:34 12:43 15:17 ABG pCO2 47 H (35-45) mmHg ABG pO2 >400 H (83-108) mmHg ABG HCO3 26 H (21-25) mmol/L ABG Total CO2 28 H (19-24) mmol/L ABG O2 Saturation 99.8 H (94-97) % Sodium 136 L (137-145) mmol/L Potassium 3.0 L (3.5-5.1) mmol/L Chloride 111 H (98-107) mmol/L Carbon Dioxide 32 H (22-30) mmol/L BUN 3 L (7-17) mg/dL Creatinine 0.51 L (0.52-1.04) mg/dL Calcium (8.4-10.2) mg/dL [place] 3.1 H* mmol/L 03/30/19 03/31/19 03/31/19 Range/Units 19:05 05:18 05:32 ABG pCO2 (35-45) mmHg ABG pO2 147 H (83-108) mmHg ABG HCO3 (21-25) mmol/L ABG Total CO2 27 H (19-24) mmol/L ABG O2 Saturation 99.0 H (94-97) % Sodium (137-145) mmol/L Potassium 3.1 L (3.5-5.1) mmol/L Chloride 110 H (98-107) mmol/L Carbon Dioxide (22-30) mmol/L BUN 3 L (7-17) mg/dL Creatinine (0.52-1.04) mg/dL Calcium 8.1 L 8.3 L (8.4-10.2) mg/dL [place] mmol/L Assessment and Plan (1) [place] overdose Narrative/Plan: * [place] level was as high as 4.3, was down to 0.9 post dialysis now trending back up to 1.3 * Plans for repeat hemodialysis today with a recheck of lithium level in the morning * Patient currently sedated and intubated , we will attempt breathing trial with hopeful extubation later today Current Visit: Yes Status: Acute Code(s): T56.891A - TOXIC EFFECT OF OTH METALS, ACCIDENTAL (UNINTENTIONAL), INIT SNOMED Code(s): 789732167 (2) Metabolic encephalopathy Narrative/Plan: * (Sedated on propofol * We'll reassess cognition once patient is extubated and off sedation Current Visit: Yes Status: Acute Code(s): G93.41 - METABOLIC ENCEPHALOPATHY SNOMED Code(s): 78860764 (3) Suicide attempt by lithium overdose Narrative/Plan: * The patient will need acute inpatient psychiatry treatment * Plan for consult to psychiatry post extubation Current Visit: Yes Status: Acute Code(s): T56.892A - TOXIC EFFECT OF OTH METALS, INTENTIONAL SELF-HARM, INIT SNOMED Code(s): 01257202 (4) History of bipolar disorder Narrative/Plan: * We'll follow up psychiatry recommendations Current Visit: Yes Status: Acute Code(s): Z86.59 - PERSONAL HISTORY OF OTHER MENTAL AND BEHAVIORAL DISORDERS SNOMED Code(s): 832778144 (5) Hypokalemia Current Visit: Yes Status: Resolved Code(s): E87.6 - HYPOKALEMIA SNOMED Code(s): 16607442 Plan: * Disposition patient to have her second round of hemodialysis will have recheck of her lithium level in the morning * Hopefully the patient will be extubated later today with plans for psychiatry consultation * Anticipated discharge: 1-2 days * discharge to: Acute inpatient psychiatry
[2019-03-31] MEDS ORDERED: LORazepam 2 MG/ML INJ IV SCH (21:00)
--- NOTE | 2019-04-01 07:06 | XR ---
EXAMINATION TYPE: XR chest 1V portable DATE OF EXAM: 04/01/2019 COMPARISON: 03/31/2019 HISTORY: Overdose. Endotracheal tube removal. TECHNIQUE: Single frontal view of the chest is obtained. FINDINGS: There is no focal air space opacity, pleural effusion, or pneumothorax seen. Endotracheal and enteric tubes have been removed. Resolution of the previously seen bibasilar atelectasis. The ca rdiac silhouette size is within normal limits. The osseous structures are intact. IMPRESSION: Interval removal of the endotracheal and enteric tubes. No acute cardiopulmonary process . Basilar atelectasis has resolved.
[2019-04-01 07:33] LABS: Basophils % (A) 0 %; Eosinophils # (A) 0.1 k/uL (0-0.7); Eosinophils % (A) 1 %; HCT 41.7 % (34.0-46.0); HGB 13.8 gm/dL (11.4-16.0); Lymphocytes # (A) 2.2 k/uL (1.0-4.8); Lymphocytes % (A) 22 %; MCH 30.9 pg (25.0-35.0); MCV 93.7 fL (80.0-100.0); Mean Platelet Volume 7.3; Monocytes # (A) 0.9 k/uL (0-1.0); Monocytes % (A) 9 %; Neutrophils # (A) 6.5 k/uL (1.3-7.7); Neutrophils % (A) 66 %; Platelet Count 182 k/uL (150-450); RBC 4.45 m/uL (3.80-5.40); RDW 13.3 % (11.5-15.5)
[2019-04-01] MEDS: SODIUM CHLORIDE 0.9% 1,000 ML IV SCH ×2 (07:51→16:26)
[2019-04-01] MEDS: HEPARIN SODIUM,PORCINE 5,000 UNIT/ML 1 ML VIAL SQ SCH ×2 (08:49→16:26)
[2019-04-01] MEDS: PANTOPRAZOLE 40 MG/10 ML VIAL IV SCH (08:53)
--- NOTE | 2019-04-01 10:50 | P.PN ---
Subjective Progress Note Date: 04/01/19 Patient seen and examined at bedside, sitter and mother present. The patient answering questions appropriately, lithium level 0.4 this morning. The patient mentions some discomfort with having her dialysis catheter in place. The patient emotional this morning when talking about her previous suicide attempt with attempted overdose of lithium, reporting that she wasn't feeling increasingly hopeless and feeling that no one cared about her in stating that she didn't think anyone would miss her now realizing how long she was. No acute events overnight Objective - Vital Signs Vital signs: Vital Signs Temp 99.0 F 04/01/19 07:00 Pulse 93 04/01/19 07:00 Resp 16 04/01/19 07:00 BP 151/99 04/01/19 07:00 Pulse Ox 100 04/01/19 07:00 Intake & Output 03/31/19 04/01/19 04/01/19 18:59 06:59 18:59 Intake Total 2479.344 200 Output Total 2625 150 Balance -145.656 50 Weight 50.5 kg Intake: IV 1500 200 Sodium Chloride 0.9% 1, 1500 200 000 ml @ 100 mls/hr IV . Q10H [facility] Rx#:[id number] Intake, IV Titration 179.344 Amount Propofol 1,000 mg In 179.344 Empty Bag 1 bag @ Titrate IV .Q0M [facility] Rx#: [id number] Oral 500 Hemodialysis 300 Output: Urine 2325 150 Hemodialysis 300 Other: Voiding Method Indwelling Catheter Indwelling Catheter # Voids 1 - Exam Constitutional: No acute distress, conversant, pleasant Eyes: Anicteric sclerae, moist conjunctiva, no lid-lag, PERRLA ENMT: NC/AT,Oropharynx clear, no erythema, exudates Neck:Supple, FROM, no masses, or JVD, No carotid bruits; No thyromegaly Lungs: Clear to auscultation, Clear to percussion, Normal respiratory effort, no accessory muscle use Cardiovascular: Heart regular in rate and rhythm, No murmurs, gallops, or rubs no peripheral edema Abdominal: Soft Nontender, nom distended, no guarding, no rebound or rigidity, Normoactive bowel sounds No hepatomegaly, No splenomegaly, No palpable mass No abdominal wall hernia noted Skin: Normal temperature, tone, texture, turgor, No induration No subcutaneous nodules, No rash, lesions, No ulcers Extremities:No digital cyanosis No clubbing, Pedal pulses intact and symmetrical Radial pulses intact and symmetrical Normal gait and station, No calf tenderness Psychiatric: Flat affect emotional, history of bipolar, suicide attempt with lithium overdose - Labs CBC & Chem 7: 04/01/19 06:59 03/31/19 05:32 Assessment and Plan (1) [place] overdose Narrative/Plan: * [place] level was as high as 4.3, was down to 0.9 post dialysis X2 down to 0.4 * [place] levels appear to have stabilized we'll plan to remove dialysis catheter * The patient medically cleared for discharge will be seen by psychiatry recommending acute inpatient psychiatry treatment Current Visit: Yes Status: Acute Code(s): T56.891A - TOXIC EFFECT OF OTH METALS, ACCIDENTAL (UNINTENTIONAL), INIT SNOMED Code(s): 650154504 (2) Metabolic encephalopathy Narrative/Plan: * Secondary to lithium toxemia and overdose * Now resolved Current Visit: Yes Status: Resolved Code(s): G93.41 - METABOLIC ENCEPHALOPATHY SNOMED Code(s): 51569258 (3) Suicide attempt by lithium overdose Narrative/Plan: * The patient will need acute inpatient psychiatry treatment * Plan for consult to psychiatry post extubation Current Visit: Yes Status: Acute Code(s): T56.892A - TOXIC EFFECT OF OTH METALS, INTENTIONAL SELF-HARM, INIT SNOMED Code(s): 91456501 (4) History of bipolar disorder Narrative/Plan: * We'll follow up psychiatry recommendations Current Visit: Yes Status: Acute Code(s): Z86.59 - PERSONAL HISTORY OF OTHER MENTAL AND BEHAVIORAL DISORDERS SNOMED Code(s): 280128070 (5) Hypokalemia Current Visit: Yes Status: Resolved Code(s): E87.6 - HYPOKALEMIA SNOMED Code(s): 48027684 Plan: Disposition * [place] levels have stabilized post second run of dialysis * Patient is now medically stable for discharge but will need acute inpatient psychiatry treatment , psychiatry consult pending * Anticipated discharge: 1-2 days * discharge to: Acute inpatient psychiatry
--- NOTE | 2019-04-01 11:39 | PN ---
PROGRESS NOTE A 18-year-old female who was seen initially in the ICU for a lithium overdose. This was a suicide attempt. She apparently thought she had some issues with her family. We thought initially was related to a break-up with a boyfriend, but apparently was more family issues. Anyway, the patient does have a history of anxiety and depression as well as bipolar disorder, was recently started on lithium. She came in with mental status changes and was very agitated. Her lithium level was quite high. The patient was electively intubated and a hemodialysis catheter was placed. She received 2 rounds of hemodialysis. She was extubated yesterday successfully. The patient is resting comfortably on the floor. The patient is not on any oxygen. She is doing well. We did ask for psychiatric consultation. Yesterday, she was very tearful and upset. Today she is doing much better. PHYSICAL EXAMINATION: Current vital signs are reviewed. Temperature is 99, heart rate 93, respiratory rate 16, blood pressure 151/99, mean 116, room air saturation 100%. She appears in no acute distress. HEENT: Examination is grossly unremarkable. Mucous membranes are moist. NECK: Supple. Full range of motion. No adenopathy or thyromegaly. Neck veins are flat. CARDIOVASCULAR: Examination reveals regular rhythm and rate. S1, S2 normal. No S3, S4, or murmur. LUNGS: Reveal clear breath sounds. No wheezes, rhonchi, or crackles. ABDOMEN: Soft. Bowel sounds are heard. EXTREMITIES: Intact. There is no cyanosis, clubbing, or edema. SKIN: Without rash. NEUROLOGIC: Examination is brief but nonfocal. LABORATORY DATA: Reviewed. White count 10, hemoglobin 13.8, hematocrit 41.7, platelet count 182,000. No electrolyte profile today. Her lithium level today is 0.4. The previous lithium level was 1.3. Microbiologic studies are pending or negative. MEDICATIONS: Reviewed. She is on subcu heparin, hydralazine for blood pressure support, Narcan, Protonix and a basic IV of saline at 100 mL an hour. ASSESSMENT: 1. Status post lithium overdose as a suicide attempt in a patient with anxiety/depression and bipolar disorder. 2. Status post intubation and mechanical ventilation for placement of a hemodialysis catheter, with successful extubation on March 31. 3. Status post hemodialysis on March 30 and Angie 4. 4. History of bipolar disorder. 5. History of anxiety/depression. 6. History of chronic tobacco use and marijuana use. PLAN: The patient seems to be doing much better. She is sitting up in the chair. She is doing some dry cereal. The patient seems much more awake and alert today. She does not seem so tearful or upset. Will continue to follow. Prognosis is guarded. MMODL / IJN: [id number] /
--- NOTE | 2019-04-01 18:24 | PN ---
PROGRESS NOTE Patient is seen for followup for lithium toxicity, for which patient was dialyzed twice. Her level was as high as 4.3 with mental status changes. Patient was dialyzed again yesterday with the level of 1.3 and this morning it is down to 0.4. Her creatinine is 0.75. She has had excellent urine output. Patient is currently in the restroom. She was not examined. Her chart is reviewed. LABS: As mentioned, lithium level 0.4, serum creatinine 0.75. ASSESSMENT: Belk toxicity, status post two treatments of hemodialysis. At this time we do not need to proceed with any further dialysis. We can remove the dialysis catheter tomorrow. Repeat lithium level in a.m. MMODL / IJN: [id number] /
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
[2019-04-01] MEDS ORDERED: LIDOCAINE 1% INJ 10MG/ML (20 ML MDV) SQ ONE (21:31)
[2019-04-02] MEDS: SODIUM CHLORIDE 0.9% 1,000 ML IV SCH (06:05)
[2019-04-02] MEDS ORDERED: LIDOCAINE 1% INJ 10MG/ML (20 ML MDV) SQ ONE (07:00)
[2019-04-02 08:13] VITALS: TEMP 98.5
[2019-04-02] MEDS ORDERED: PANTOPRAZOLE 40 MG TABLET PO SCH (09:00)
--- NOTE | 2019-04-02 11:33 | P.PN ---
Subjective Patient is seen in follow-up for lithium toxicity. Patient underwent 2 treatments of hemodialysis this admission. GFR is at baseline. Dialysis ca theter was discontinued this morning. Vital signs are stable. General: The patient appeared well nourished and normally developed. Intubated. HEENT: Head exam is unremarkable. Neck is without jugular venous distension. LUNGS: Lungs are clear to auscultation and percussion. Breath sounds decreased. HEART: Rate and Rhythm are regular. First and second heart sounds normal. No murmurs, rubs or gallops. ABDOMEN: Abdominal exam reveals normal bowel sounds. Non-tender and non- distended. No evidence of peritonitis. EXTREMITITES: No clubbing, cyanosis, or edema. Objective - Vital Signs Vital signs: Vital Signs Temp 98.5 F 04/02/19 07:26 Pulse 107 H 04/02/19 07:26 Resp 15 04/02/19 08:35 BP 161/106 04/02/19 07:26 Pulse Ox 100 04/02/19 07:26 Intake & Output 04/01/19 04/02/19 04/02/19 18:59 06:59 18:59 Intake Total 750 1080 Balance 750 1080 Weight 50.3 kg Intake: IV 100 Sodium Chloride 0.9% 1, 100 000 ml @ 50 mls/hr IV . Q20H HOWARD Rx#:[id number] Intake, IV Titration 500 Amount Sodium Chloride 0.9% 1, 500 000 ml @ 50 mls/hr IV . Q20H HOWARD Rx#:[id number] Oral 750 480 Other: # Voids 5 1 - Labs CBC & Chem 7: 04/01/19 06:59 03/31/19 05:32 Assessment and Plan Plan: Assessment: 1. Acute lithium toxicity with encephalopathy. Talty level 4.3. Patient underwent 2 treatments of hemodialysis this admission. 2. History of bipolar disorder. 3. Suicidal attempt. 4. Benign hypertension. Plan: Hep-Lock IV fluids. Dialysis catheter has been removed. No further need. I will sign off at this time.
--- NOTE | 2019-04-02 12:52 | P.DS ---
Providers Date of admission: 03/30/19 04:52 Expected date of discharge: 04/02/19 Attending physician: Berhane Estrada MD Consults: 03/30/19 06:50 Consult Physician Stat Consulting Provider: Nicholas Lynn Consult Reason/Comments: lithium poisoning Do you want consulting provider notified?: Yes 03/30/19 06:55 Consult Physician Routine Consulting Provider: Aron Olmedo Consult Reason/Comments: lithium toxicity, possible need for dialysis and IV access Do you want consulting provider notified?: Yes 03/30/19 13:11 Consult Physician Stat Consulting Provider: Colby Pavon Consult Reason/Comments: icu management Do you want consulting provider notified?: Already Contacted 03/31/19 17:10 Consult Physician Routine Consulting Provider: Kim Melton Consult Reason/Comments: sucide attempt, lithium OD Do you want consulting provider notified?: Yes Primary care physician: Stated None Hospital Course: Discharge Diagnosis: Suicide Attempt [place] Overdose Toxic encephalopathy bipolar disorder hypokalemia Hospital Course: Patient is a 18-year-old female with past medical history of bipolar disorder, tobacco abuse, and marijuana use who presented to the ER after lithium overdose. In the ER she was found to be delirious with altered mentation. Poison control was notified as her lithium level was normal at 0.8. They recommended aggressive IV fluids. She is admitted for further monitoring. Her lithium level maxed out at 4.3. Nephrology was consulted and arrangements were made for urgent dialysis. She initially was refusing dialysis and would not want a catheter be inserted. She was subsequently intubated and placed on the ventilator. The dialysis catheter was placed. She underwent 2 rounds of hemodialysis on her lithium level remained normal. She was determined stable for discharge. She was seen by psychiatry who agreed that she needed to be admitted to the mental health unit. She was subsequently discharged to mental health. Patient seen and examined at bedside. Vital signs reviewed and stable. General: non toxic, no distress, appears at stated age Derm: warm, dry Head: atraumatic, normocephalic, symmetric Eyes: EOMI, no lid lag, anicteric sclera Mouth: no lip lesion, mucus membranes moist Cardiovascular: S1S2 reg, no murmur, positive posterior tibial pulse bilateral, Lungs: CTA bilateral, no rhonchi, no rales , no accessory muscle use Ext: no gross muscle atrophy, no edema, no contractures Neuro: CN II-XI grossly intact, no focal neuro deficits Psych: Alert, oriented, anxious with pressured speech A total of 25 minutes of time were spent preparing this complex discharge summary . Pertinent Studies: CXR- intubation Procedures: 03/30/19- Temporary HD cath placed Patient Condition at Discharge: Stable Plan - Discharge Summary Discharge Rx Participant: No New Discharge Prescriptions: Continue Cholecalciferol [Vitamin D3 (25 Mcg = 1000 Iu)] 5,000 unit PO DAILY Cyanocobalamin (Vitamin B-12) [Vitamin B-12] 1,000 mcg PO DAILY Discontinued Ibuprofen [Motrin] 800 mg PO TID PRN PRN Reason: Pain [place] Carbonate ER [Lithobid] 450 mg PO HS No Action cloNIDine HCL [Catapres] 0.1 mg PO HS Discharge Medication List Cholecalciferol [Vitamin D3 (25 Mcg = 1000 Iu)] 5,000 unit PO DAILY 03/29/19 [History] Cyanocobalamin (Vitamin B-12) [Vitamin B-12] 1,000 mcg PO DAILY 03/29/19 [History] cloNIDine HCL [Catapres] 0.1 mg PO HS 03/29/19 [History] Follow up Appointment(s)/Referral(s): None,Stated [Primary Care Provider] - 1-2 days Activity/Diet/Wound Care/Special Instructions: regular diet Activity as tolerated
[2019-04-02 15:47] VITALS: BP 155/107; PULSE 105; RESP 14
[2019-04-02 15:49] VITALS: BMI 19.0
--- NOTE | 2019-04-03 08:21 | PCN ---
PROCEDURE NOTE PREOPERATIVE DIAGNOSIS: [place] poisoning. PROCEDURE: Removal of dialysis catheter right femoral approach. DESCRIPTION OF PROCEDURE: this patient was seen in her room. Right groin was prepped and draped in usual sterile manner and 1% lidocaine infiltrated. Stitches were removed and catheter was removed from the right groin. Pressure dressing applied. Patient tolerated the procedure well. MMODL / IJN: [id number] /
== END 2019-04-02 17:59 | disposition still patient (30) | DRG 917 ==
LOC: EC 22:33 → 3SCARD 03-30 04:52 → 2SICU 03-30 11:26 → 4SSUR 03-31 21:41
PROVIDERS: ADMIT Internal Medicine; ATTEND Internal Medicine
PROC: 5A1935Z Respiratory Ventilation, Less than 24 Consecutive Hours (ICD-10-PCS; principal; 2019-03-30 10:04)
PROC: 0BH17EZ Insertion of Endotracheal Airway into Trachea, Via Natural or Artificial Opening (ICD-10-PCS; principal; 2019-03-30 10:04)
PROC: 06PYX3Z Removal of Infusion Device from Lower Vein, External Approach (ICD-10-PCS; 2019-03-30 10:04)
PROC: 5A1D70Z Performance of Urinary Filtration, Intermittent, Less than 6 Hours Per Day (ICD-10-PCS; 2019-03-30 10:04)
PROC: B51B1ZA Fluoroscopy of Right Lower Extremity Veins using Low Osmolar Contrast, Guidance (ICD-10-PCS; 2019-03-30 10:04)
PROC: 06HY33Z Insertion of Infusion Device into Lower Vein, Percutaneous Approach (ICD-10-PCS; 2019-03-30 10:04)
DX: T43.592A Poisoning by other antipsychotics and neuroleptics, intentional self-harm, initial encounter (principal); G92 Toxic encephalopathy; E87.2 Acidosis; F05 Delirium due to known physiological condition; N17.9 Acute kidney failure, unspecified; F17.200 Nicotine dependence, unspecified, uncomplicated; E87.6 Hypokalemia; I10 Essential (primary) hypertension; F31.9 Bipolar disorder, unspecified; F41.9 Anxiety disorder, unspecified; F17.210 Nicotine dependence, cigarettes, uncomplicated; F12.929 Cannabis use, unspecified with intoxication, unspecified; Z91.011 Allergy to milk products; Z91.5 Personal history of self-harm
CPT/HCPCS: 36415; 36556; 36600; 51701; 71045; 76937; 77001; 80048; 80053; 80178; 80306; 80320; 80329; 81003; 81025; 82805; 83520; 83735; 84100; 85025; 86704; 86706; 87340; 90935; 93005; 94002; 94003; 96361; 96365; 96366; 96375; 99285

== ENCOUNTER 2019-04-02 17:38 | Inpatient (IN) | payer MEDICAID ==
[2019-04-02 18:41] VITALS: BMI 18.1
[2019-04-02] MEDS ORDERED: cloNIDine HCL 0.1 MG TAB PO SCH (21:00)
[2019-04-03] MEDS: CYANOCOBALAMIN 500 MCG TAB PO SCH (08:28)
[2019-04-03] MEDS: CHOLECALCIFEROL 1,000 UNIT TAB PO SCH (08:28)
[2019-04-03] MEDS: PANTOPRAZOLE 40 MG TABLET PO SCH (08:28)
[2019-04-03] MEDS: FLUoxetine HCL 10 MG CAP PO SCH (10:58)
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
--- NOTE | 2019-04-03 16:32 | P.HPMEDMHU ---
History of Present Illness H&P Date: 04/03/19 (Delayed charting seen at approximately 1:45 PM) Chief Complaint: depression Patient is a 18-year-old female well-known to our service from recent medical hospitalization secondary to lithium overdose requiring 2 rounds of urgent dialysis. She since been admitted to the mental health unit. Patient seen and examined at bedside. She denies any cough, cold, fever, flu, nausea, vomiting, diarrhea, or constipation. She is feeling slightly tired today. She is feeling a little anxious about this entire process. She otherwise feels as though she's in her normal state of health. Patient states that she has been struggling with hypertension since she was 11 or 12, she states her family history of hypertension. She has never been formally diagnosed with high blood pressure. She is aware that her blood pressures are reactive to her anxiety. She states they increased significantly when she is anxious, she insists that they are still elevated when she is not stressed, but she is unaware of the numbers. She does see a practitioner at [facility]. She states to her knowledge she has not been worked up for causes of secondary hypertension but has recently had thyroid studies. Review of Systems Pertinent positives and negatives as discussed in HPI, a complete review of systems was performed and all other systems are negative. Past Medical History Additional Past Medical History / Comment(s): Feels her blood pressure is elevated since age 11 or 12, never formally diagnosed with hypertension. History of Any Multi-Drug Resistant Organisms: None Reported Past Surgical History: No Surgical Hx Reported Additional Past Surgical History / Comment(s): dialysis tube inserted in the right thigh Past Anesthesia/Blood Transfusion Reactions: No Reported Reaction Past Psychological History: Bipolar, Depression Smoking Status: Never smoker Past Alcohol Use History: None Reported Past Drug Use History: Marijuana - Past Family History Mother Additional Family Medical History / Comment(s): history of heart disease and family in multiple family members Medications and Allergies Home Medications Medication Instructions Recorded Confirmed Type Cholecalciferol [Vitamin D3 (25 5,000 unit PO DAILY 03/29/19 04/02/19 History Mcg = 1000 Iu)] Cyanocobalamin (Vitamin B-12) 1,000 mcg PO DAILY 03/29/19 04/02/19 History [Vitamin B-12] cloNIDine HCL [Catapres] 0.1 mg PO HS 03/29/19 04/02/19 History Allergies Allergy/AdvReac Type Severity Reaction Status Date / Time Milk Containing Products Allergy Unknown Verified 04/02/19 18:39 [Dairy] Childhood Physical Exam Osteopathic Statement: *. No significant issues noted on an osteopathic structural exam other than those noted in the History and Physical/Consult. Vitals: Vital Signs Temp Pulse Resp BP 04/03/19 14:50 104 H 16 143/99 04/03/19 06:30 98.6 F 127 H 16 139/92 04/02/19 23:16 101 H 16 161/102 04/02/19 22:09 111 H 16 168/111 04/02/19 18:30 99 F 108 H 18 153/100 Intake and Output 04/03/19 04/03/19 04/03/19 06:59 14:59 22:59 Other: Weight 44.911 kg General: non toxic, no distress, appears at stated age, normal weight Derm: Area of puncture right groin, no swelling, no bleeding, no erythema no unusual ecchymoses, warm, dry Head: atraumatic, normocephalic, symmetric Eyes: EOMI, no lid lag, anicteric sclera, pupils equal round reactive to light ENT: Nose and ears atraumatic, no thrush, no pharyngeal erythema Neck: No thyromegaly, no cervical lymphadenopathy, trachea midline, supple Mouth: no lip lesion, mucus membranes moist Cardiovascular: S1S2 reg, no murmur, positive posterior tibial pulse bilateral, no edema, capillary refill less than 2 seconds Lungs: CTA bilateral, no rhonchi, no rales , no accessory muscle use Abdominal: soft, nontender to palpation, no guarding, no appreciable organomegaly, normal bowel sounds Ext: no gross muscle atrophy, muscle strength 5 out of 5 in all 4 extremities grossly, no contractures, Neuro: CN II-XI grossly intact, light touch intact all 4 extremities, finger to nose within normal limits, Psych: Alert, oriented, appropriate affect Cranial Nerve Examination - Cranial Nerves Cranial Nerve II- Optic: Intact Cranial Nerve III- Oculomotor: Intact Cranial Nerve IV- Trochlear: Intact Cranial Nerve V- Trigeminal: Intact Cranial Nerve - Abducens: Intact Cranial Nerve VII- Facial: Intact Cranial Nerve VIII- Auditory: Intact Cranial Nerve IX- Glossopharyngeal: Intact Cranial Nerve X- Vagus: Intact Cranial Nerve XI- Accessory: Intact Cranial Nerve XII- Hypoglossal: Intact Thrombosis Risk Factor Assmnt - DVT/VTE Prophylaxis DVT/VTE Prophylaxis: Low risk, early ambulation encouraged - Choose All That Apply Any of the Below Risk Factors Present?: No Other Risk Factors: No Thrombosis Risk Factor Assessment Level: Very Low Risk Assessment and Plan Assessment: Elevated blood pressure without formal diagnosis of hypertension -Will not initiate medications at this time -Blood pressures reviewed from medical hospitalization and this hospitalization, appears labile -We will continue to monitor with transition to new environment -If remains elevated will start lisinopril, patient is aware -I Have also suggested a workup for secondary causes of hypertension on an outpatient basis. This was placed on her discharge. Wound right groin, secondary to dialysis catheter -Keep covered with a Band-Aid -No indication to continue pressure dressing -Notify us if she starts to bleed Depression with suicide attempt -Your psych management Thank you for allowing us to participate in the care of this patient. We will follow peripherally. Do not hesitate to contact us with questions. Someone can be reached from the [facility] hospitalist group at all hours of the day at [phone].
[2019-04-04] MEDS: PANTOPRAZOLE 40 MG TABLET PO SCH (08:58)
[2019-04-04] MEDS: CHOLECALCIFEROL 1,000 UNIT TAB PO SCH (08:58)
[2019-04-04] MEDS: CYANOCOBALAMIN 500 MCG TAB PO SCH (08:58)
[2019-04-04] MEDS: FLUoxetine HCL 10 MG CAP PO SCH (08:58)
--- NOTE | 2019-04-04 14:18 | P.PN ---
Progress Note - Text Progress Note Date: 04/04/19 Interval history: Patient is seen in cross coverage today. She does state she had difficulty falling asleep last night. She had been on clonidine at home which has been discontinued. She has been started on Prozac which she states she is having a little upset stomach but it seems to be very tolerable. Mental status exam: She is alert and cooperative with the interview. Her speech is fluent, not rapid or pressured. Thought processes organized. Her mood appears to be improved. She denies any thoughts of harm to self or others since she has been on the inpatient unit. She does not verbalize any hallucinations or delusional thoughts. She does not show any agitation. Plan: Patient will be maintained on Prozac as current. We will trial melatonin at bedtime to see if this can help with sleep. We will continue to cover this patient over the weekend, monitor for any medication side effects and monitor her ongoing response to treatment.
[2019-04-05] MEDS: MELATONIN 1 MG TAB PO SCH ×2 (00:14→22:52)
[2019-04-05] MEDS: PANTOPRAZOLE 40 MG TABLET PO SCH (08:39)
[2019-04-05] MEDS: CYANOCOBALAMIN 500 MCG TAB PO SCH (08:50)
[2019-04-05] MEDS: CHOLECALCIFEROL 1,000 UNIT TAB PO SCH (08:50)
[2019-04-05] MEDS: FLUoxetine HCL 10 MG CAP PO SCH (08:50)
--- NOTE | 2019-04-05 12:55 | P.PN ---
Progress Note - Text Progress Note Date: 04/05/19 Interval history: Patient is seen again in cross coverage today. She reports that she slept at least 6 hours last night and felt a little bit drowsy this morning with the melatonin but seems a very tolerable and she would not want to decrease the dose. Her mood is improved and she feels like her anxiety levels manageable it seems. She does describe some stomach upset with the Prozac but it is tolerable. We again discussed that this can improved. Mental status exam: She is alert and cooperative with the interview. Her speech is fluent, not rapid or pressured. Thought processes are organized. Her affect shows range. Her mood seems improved. She denies any thoughts of harm to self or others. There is no evidence of psychosis or agitation. Plan: Patient will be maintained on current psychotropic medication regimen. Continue to monitor for medication side effects and monitor her ongoing response to treatment.
[2019-04-06] MEDS: PANTOPRAZOLE 40 MG TABLET PO SCH (08:25)
[2019-04-06] MEDS: CHOLECALCIFEROL 1,000 UNIT TAB PO SCH (08:25)
[2019-04-06] MEDS: FLUoxetine HCL 10 MG CAP PO SCH (08:25)
[2019-04-06] MEDS: CYANOCOBALAMIN 500 MCG TAB PO SCH (08:25)
[2019-04-06] MEDS: LISINOPRIL 10 MG TAB PO SCH (12:10)
--- NOTE | 2019-04-06 12:32 | P.PN ---
Progress Note - Text Progress Note Date: 04/06/19 Interval History: Patient is a 18-year-old female who reports that she is no longer feeling suicidal is been eating well and states she is no longer having any stomach upset with the Prozac. She states that using the melatonin she slept well last evening. She states that she is aware that she over personalizes people's comments and states that her thoughts that the family was being forced to do things for her and didn't like doing things with her was based on her thoughts not on what was actually going on. 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 Patient states that she is interested in attending the DBT group again as well as continuing to arrange for [place] support. Patient reports no current suicidal thoughts and states her mood is improved. Mental Status: Appearance/Attitude: Patient is neatly dressed, makes good eye contact and was cooperative Behavior: Patient does not exhibit any psychomotor agitation or retardation Speech/Language: Patient's speech is spontaneous of normal volume and rhythm and she is coherent Thought Process: Patient is goal-directed there is no evidence of loose association or flight of ideas Thought Content: Patient denies any auditory or visual hallucinations no delusions or paranoid ideation or elicited. Patient states that she is eating and sleeping well. She reports no complaints of side effects. Patient states that she has found the groups and activities beneficial. Suicidal/Homicidal Ideation: Patient denies any current suicidal or homicidal ideation Sensorium/Cognition: Patient is alert and oriented to person, place, and time and her recent and remote memory are grossly intact Mood/Affect: Patient's mood is pleasant and her affect is appropriate Insight/Judgment: Patient's insight and judgment are fair Assessment: Patient reports that she is feeling better, has been attending groups and activities and states that she is sleeping and eating well. She reports no suicidal ideation. Patient is eager to return to DBT group at [facility]. She states that she will return to live with her grandmother on discharge. Patient is now off of clonidine at bedtime and her diastolic blood pressure remains above the 100. Plan: Patient continue on Prozac 10 mg in the morning and melatonin 1 mg at bedtime to assist with her mood and sleep. Patient and I discussed discharge tomorrow and patient was agreeable with this stating both of her parents about working on Tuesdays. Patient is aware that she needs to [facility], and repeat thyroid studies in 1 month's now that she is off lithium.
[2019-04-06] MEDS: MELATONIN 1 MG TAB PO SCH (22:21)
[2019-04-07 06:37] VITALS: TEMP 98.7
[2019-04-07] MEDS: PANTOPRAZOLE 40 MG TABLET PO SCH (07:42)
[2019-04-07] MEDS: FLUoxetine HCL 10 MG CAP PO SCH (08:20)
[2019-04-07] MEDS: CYANOCOBALAMIN 500 MCG TAB PO SCH (08:21)
[2019-04-07] MEDS: LISINOPRIL 10 MG TAB PO SCH (08:21)
[2019-04-07] MEDS: CHOLECALCIFEROL 1,000 UNIT TAB PO SCH (08:22)
[2019-04-07 08:25] VITALS: BP 157/92; PULSE 119; RESP 18
--- NOTE | 2019-04-07 11:28 | P.DS ---
Providers Date of admission: 04/02/19 18:04 Expected date of discharge: 04/07/19 Attending physician: Kim Melton MD Consults: 04/02/19 18:34 Consult Physician Routine Consulting Provider: Tierra Durand Consult Reason/Comments: H & P and medical care Do you want consulting provider notified?: Yes Primary care physician: Stated None Hospital Course: Discharge Diagnosis: Major depressive disorder, recurrent with moderate severity Reason for Admission: Patient is a 18-year-old female was transferred from the medical floor after she presented to the emergency room after an overdose on lithium which required dialysis and intubation. Patient states that she had returned to treatment at [facility] and was started on lithium. Patient stated to me that she took the overdose and immediately regretted it informing her grandmother with whom she lives to bring her to the emergency room. Patient states that she took the overdose because she had been feeling that family didn't care to be around her interactions with her that she had been feeling depressed. Patient states that she thought no one wanted to talk with her including friends. Patient states that she regretted taking the overdose as soon as she did. Patient states that she had recently returned to treatment at [facility] and had been restarted on lithium 450 mg at bedtime which was the medication that she had been on at her last visits to [facility]. Patient states that she initially received treatment at the end of her senior year in high school for symptoms of depression which included decreased motivation and difficulty doing her schoolwork because she couldn't focus or have an interest in it. She states her appetite was up and down at that time and her sleep was disrupted and she felt tired with the decrease in her energy. She states that she had crying spells and was feeling hopeless and was more withdrawn socially and had a decreased interest in her grooming. Patient states that at that time she had suicidal thoughts but no plans to act. Patient was tried on multiple antidepressants that she states were effective for her mood but caused side effects of either headaches or stomachache and so were discontinued and she was placed on lithium. Patient states that her depressive symptoms have been less intense and shorter lasting over the last year that she's been off of medication and then prior to having started at [facility]. Patient also endorses a history of restricting her calorie intake when she was 16 and 17 years of age. Patient states that she went from 130 pounds to 70-80 pounds this was after high school when she was living with a boyfriend when she was at her lowest weight. She states for several months she was also binging and purging. She denies any laxative use. She states that she currently is not restricting her calorie intake and is currently about 110 pounds and is interested in gaining weight. Patient is not able to endorse any symptoms of OCD or anxiety and no psychotic symptoms are elicited. Patient is not able to endorse any manic symptoms patient doesn't endorse a history of self-harm since the age of 11 when she has been cutting herself she states when she is upset with herself. She states that she is not engaged in any cutting behavior for the last month patient also states that she is used marijuana on a daily basis since her senior year in high school. Mental status on admission: Appearance/Attitude: Patient is neatly and appropriately dressed and makes good eye contact and was cooperative. Behavior: Patient does not exhibit any psychomotor agitation or retardation. Speech/Language: Patient's speech is spontaneous of normal volume and rhythm and she is coherent Thought Process: Patient is goal-directed there is no evidence of loose association or flight of ideas Thought Content: Patient denies any auditory or visual hallucinations and no delusions or paranoid ideation or elicited. Patient states that she's been feeling depressed recently was upset thinking that family wanted nothing to do with her, were being forced to interact with her. She states that she had been feeling hopeless about her situation was not sleeping well and states that she had been having crying spells. Suicidal/Homicidal Ideation: Patient denies any current suicidal or homicidal ideation Sensorium/Cognition: Patient is alert and oriented to person, place, time and her recent and remote memory are grossly intact Mood/Affect: Mood is depressed and her affect is appropriate to her mood Insight/Judgment: Patient's insight and judgment are fair Hospital Course: Patient was admitted from the medical floor on a voluntary basis, routine observation in group and activity therapy were ordered. Patient was followed by the medical physiologist no laboratory studies were ordered on the inpatient psychiatry unit as the patient's labs were WNL and her lithium level continued to decrease. Patient and I discussed her symptoms of depression and she was not able to endorse any manic symptoms with me. Patient states that she had taken the overdose because she thought her family did not want to be around her and didn't look happy when they were around her. Patient states she took the overdose and immediately regretted it and contacted her grandmother who brought her to the emergency room. Patient states that she recently returned to [facility] for care due to increasing symptoms of depression. Patient reported no suicidal ideation while on the inpatient psychiatry unit. Patient reported that her sleep was not good and she was begun on melatonin 1 mg at bedtime to assist with sleep and she had a good response. Patient and I discussed antidepressants and we began the patient on Prozac 10 mg in the morning to target her depressive symptoms. Patient was continued on proton asked and her clonidine was discontinued and her blood pressure was evaluated off of clonidine and continue to remain elevated and so the patient was begun on lisinopril to treat her elevated blood pressure. Patient reported that her mood had improved she was able to question her thoughts that her family didn't want to be around her and looked unhappy when they were with her. Patient states that she found the DBT classes at [facility] beneficial that she had just recently started. Patient reported that she was eating well and was no longer trying to lose weight and was not restricting her intake and in fact was happy that she had been gaining weight. Patient reported no side effects from the Prozac and reported that her sleep had improved and her mood was stable. She stated that she was no longer having any suicidal ideation, was questioning her perception of how her family have been responding to her and states that she was not feeling depressed, hopeless or worthless. Patient felt she was ready for discharge and will return to live with her grandmother. Patient states that her long-term plan is to return to school in the fall. Allergies Milk Containing Products [Dairy] Allergy (Verified 04/02/19 18:39) Unknown Childhood Discharge Mental Status: Appearance/Attitude: Patient is neatly and appropriately dressed, makes good eye contact and is cooperative Behavior: Patient does not display any psychomotor agitation or retardation. Speech/Language: Patient's speech is spontaneous of normal volume and rhythm and she is coherent Thought Process: Patient is goal-directed there is no evidence of loose association or flight of ideas Thought Content: Patient denies any auditory or visual hallucinations and no paranoid or delusional ideation is elicited. Patient questions her perception that her family did not care to be around her, is not happy when they were with her and states that she regrets taking the overdose and states that she did so as soon as she took it. Patient states that she is not feeling depressed, has been sleeping and eating well and is happy that she is gaining weight. Patient has no thoughts of self-harm, cutting. Suicidal/Homicidal Ideation: Patient denies any current suicidal or homicidal ideation Sensorium/Cognition: Patient is alert and oriented to person, place, and time and her recent and remote memory are grossly intact Mood/Affect: Patient's mood is pleasant and her affect is appropriate Insight/Judgment: Patient's insight and judgment are fair Risk Assessment: Patient's risk for self harm is moderate Discharge Plan: Patient will be discharged to live with her grandmother. Patient will continue taking vitamin D and vitamin B12 which she states she has sufficient at home. Patient will also continue on Prozac 10 mg in the morning, Zestril 10 mg in the morning, melatonin 1 mg at bedtime and Protonix 40 mg before breakfast and will be given prescriptions for these medications. Patient will follow up at [facility] and her next appointment is on April 14. Patient and I also discussed the need to follow-up at the [facility]'s clinic regarding her elevated blood pressure and the need for a workup as to the cause of this. Patient should also obtain thyroid studies and a month to assess whether those are within normal limits or not. Patient was advised to be compliant with medication and treatment, avoid any alcohol or drugs. Patient was also advised to contact crisis line, her therapist, should she have suicidal thoughts in the future. Patient Condition at Discharge: Stable Plan - Discharge Summary Discharge Rx Participant: No New Discharge Prescriptions: New Melatonin 1 mg PO HS #28 tab Pantoprazole [Protonix] 40 mg PO -BRKFST #28 tablet. FLUoxetine HCL [PROzac] 10 mg PO DAILY #14 cap Lisinopril [Zestril] 10 mg PO DAILY #28 tab Continue Cholecalciferol [Vitamin D3 (25 Mcg = 1000 Iu)] 5,000 unit PO DAILY Cyanocobalamin (Vitamin B-12) [Vitamin B-12] 1,000 mcg PO DAILY Discontinued cloNIDine HCL [Catapres] 0.1 mg PO HS Discharge Medication List Cholecalciferol [Vitamin D3 (25 Mcg = 1000 Iu)] 5,000 unit PO DAILY 03/29/19 [History] Cyanocobalamin (Vitamin B-12) [Vitamin B-12] 1,000 mcg PO DAILY 03/29/19 [History] FLUoxetine HCL [PROzac] 10 mg PO DAILY #14 cap 04/07/19 [Rx] Lisinopril [Zestril] 10 mg PO DAILY #28 tab 04/07/19 [Rx] Melatonin 1 mg PO HS #28 tab 04/07/19 [Rx] Pantoprazole [Protonix] 40 mg PO AC-BRKFST #28 tablet. 04/07/19 [Rx] Follow up Appointment(s)/Referral(s): [facility] [Outside] - 04/14/19 11:00 am (04-14-19 @ 11:00 with Danae Price 05-05-18 @ 8:[address] Eddy ) [facility] [NON-STAFF] - 04/17/19 2:30 pm (for follow up on blood pressure and maintance, and need for clonidine 0.1 mg at HS PO doseage that was d/c'd while in hospital) Activity/Diet/Wound Care/Special Instructions: Recommend evaluation for causes of secondary hypertension with her primary practitioner at [facility]. Activity and diet as tolerated. No guns or weapons in the home. Refrain from all drugs and alcohol not prescribed by physician. Take all medications as prescribed. Attend all follow up appointments as scheduled. If in need of medication refills, please go to your primary care physician, or go to your out patient psychiatric provider. If in crisis, please call , or go the nearest ER. Discharge Disposition: HOME SELF-CARE
== END 2019-04-07 12:00 | disposition home or self-care (01) | DRG 885 ==
LOC: 3MHU 18:04
PROVIDERS: ADMIT Psychiatry & Neurology Psychiatry; ATTEND Psychiatry & Neurology Psychiatry
DX: F33.1 Major depressive disorder, recurrent, moderate (principal); F12.90 Cannabis use, unspecified, uncomplicated; F41.9 Anxiety disorder, unspecified; K30 Functional dyspepsia; F42.9 Obsessive-compulsive disorder, unspecified; R03.0 Elevated blood-pressure reading, without diagnosis of hypertension; Z86.59 Personal history of other mental and behavioral disorders; Z91.410 Personal history of adult physical and sexual abuse; Z91.5 Personal history of self-harm; Z91.011 Allergy to milk products

== ENCOUNTER 2019-12-15 17:10 | Emergency (ER) | payer OTHER ==
--- NOTE | 2019-12-15 19:12 | ED ---
General Adult HPI - General Chief complaint: ENT Stated complaint: sore throat/headache Time Seen by Provider: 12/15/19 18:37 Source: patient, RN notes reviewed, old records reviewed Mode of arrival: ambulatory Limitations: no limitations - History of Present Illness Initial comments: 19-year-old female patient with past history of bipolar disorder, previous lithium overdose which required dialysis presents ED for chief complaint of sore throat, epigastric abdominal pain, cough for the last 2 days. Patient does report that she had a friend that had strep. She reports that yesterday she felt as if there is a lump in her throat. She's had nausea without emesis. Describes the epigastric discomfort as a sharp stabbing pain. Denies any other complaints at this time. Patient was that she has been taking her medications as directed, denies any intentional harm suicidal or homicidal ideations. Systemic: Pt denies fatigue, fever/chills, rash. Pt denies weakness, night sweats, weight loss. Neuro: Pt denies headache, visual disturbances, syncope or pre-syncope. HEENT: Pt denies ocular discharge or irritation, otalgia, rhinorrhea, or notable lymphadenopathy. Cardiopulmonary: Pt denies chest pain, SOB, heart palpitations, dyspnea on exertion. Abdominal/GI: Pt denies v/d. : Pt denies dysuria, burning w/ urination, frequency/urgency. Denies new onset urinary or bowel incontinence. MSK: Pt denies myalgia, loss of strength or function in extremities. Neuro: Pt denies new onset weakness, paresthesias. - Related Data Home Medications Medication Instructions Recorded Confirmed Cholecalciferol [Vitamin D3 (25 5,000 unit PO DAILY 03/29/19 04/02/19 Mcg = 1000 Iu)] Cyanocobalamin (Vitamin B-12) 1,000 mcg PO DAILY 03/29/19 04/02/19 [Vitamin B-12] Previous Rx's Medication Instructions Recorded FLUoxetine HCL [PROzac] 10 mg PO DAILY #14 cap 04/07/19 Lisinopril [Zestril] 10 mg PO DAILY #28 tab 04/07/19 Melatonin 1 mg PO HS #28 tab 04/07/19 Pantoprazole [Protonix] 40 mg PO DORCAS #28 zack. 04/07/19 Pantoprazole Sodium [Protonix] 20 mg PO Q24HR 7 Days #7 tablet. 12/15/19 Allergies Allergy/AdvReac Type Severity Reaction Status Date / Time Milk Containing Products Allergy Unknown Verified 12/15/19 17:57 [Dairy] Childhood Review of Systems ROS Statement: Those systems with pertinent positive or pertinent negative responses have been documented in the HPI. ROS Other: All systems not noted in ROS Statement are negative. Past Medical History Past Medical History: Hypertension Additional Past Medical History / Comment(s): Feels her blood pressure is elevated since age 11 or 12, never formally diagnosed with hypertension. History of Any Multi-Drug Resistant Organisms: None Reported Past Surgical History: No Surgical Hx Reported Additional Past Surgical History / Comment(s): dialysis tube inserted in the right thigh Past Anesthesia/Blood Transfusion Reactions: No Reported Reaction Past Psychological History: Bipolar, Depression Smoking Status: Never smoker Past Alcohol Use History: None Reported Past Drug Use History: None Reported - Past Family History Mother Family Medical History: No Reported History Additional Family Medical History / Comment(s): history of heart disease and family in multiple family members Father Family Medical History: No Reported History General Exam - General Exam Comments Initial Comments: Constitutional: NAD, AOX3, Pt has pleasant affect. HEENT: NC/AT, trachea midline, neck supple, no lymphadenopathy. Posterior pharynx non erythematous, without exudates. External ears appear normal, without discharge. Mucous membranes moist. Eyes PERRLA, EOM intact. There is no scleral icterus. No pallor noted. Cardiopulmonary: RRR, no murmurs, rubs or gallops, no JVD noted. Lungs CTAB in anterior and posterior dalton. No peripheral edema. Abdominal exam: Abdomen soft and non-distended. Abdomen mildly tenderness palp ation in epigastric region.. Bowel sounds active in LLQ. No hepatosplenomegaly. No ecchymosis Neuro: CN II-XII grossly intact. No nuchal rigidity. No raccon eyes, no buitrago sign, no hemotympanum. No cervical spinal tenderness. MSK: No posterior calf tenderness bilaterally, homans sign negative bilaterally. Posterior tibialis and radial pulse +2 bilaterally. Sensation intact in upper and lower extremities. Full active ROM in upper and lower extremities, 5/5 stregnth. Limitations: no limitations Course Vital Signs 12/15/19 12/15/19 17:52 18:25 Temperature 98.9 F 99.3 F Pulse Rate 76 Respiratory 20 Rate Blood Pressure 134/82 O2 Sat by Pulse 99 Oximetry Medical Decision Making - Medical Decision Making 19-year-old female patient with past history of bipolar disorder, previous lithium overdose which required dialysis presents ED for chief complaint of sore throat, epigastric abdominal pain, cough for the last 2 days. Patient does report that she had a friend that had strep. She reports that yesterday she felt as if there is a lump in her throat. She's had nausea without emesis. Describes the epigastric discomfort as a sharp stabbing pain. Denies any other complaints at this time. Patient was that she has been taking her medications as directed, denies any intentional harm suicidal or homicidal ideations. Patient vital signs stable, afebrile. Physical exam displayed mild epigastric tenderness. Left investigations were obtained. CBC CMP lipase within normal limits. UA negative. HCG negative. Influenza negative. Group A strep negative. Chest x-ray, soft tissue neck, KUB did not display acute process. Patient was administered a GI cocktail which she did vomit after she drank it very fast. Reports that her abdomen does feel better with Tylenol however. Patient is a poor that she has an element of chronic abdominal pain and she has had some waxing and waning pain over the last few months which are baseline for her. Offered patient advanced imaging. Patient declined, patient will be treated for gastritis will follow-up with primary care provider will have strict return precautions. Repeat exam prior to discharge patient very mildly tender in epigastric region improved from prior. No other areas of abdominal tenderness, no guarding or rigidity. Case discussed with Dr. Lai. - Lab Data Result diagrams: 12/15/19 19:05 12/15/19 19:05 Lab Results 12/15/19 12/15/19 12/15/19 Range/Units 18:00 18:00 19:05 WBC 9.8 (3.8-10.6) k/uL RBC 4.41 (3.80-5.40) m/uL Hgb 13.7 (11.4-16.0) gm/dL Hct 41.2 (34.0-46.0) % MCV 93.5 (80.0-100.0) fL MCH 31.1 (25.0-35.0) pg MCHC 33.3 (31.0-37.0) g/dL RDW 12.1 (11.5-15.5) % Plt Count 247 (150-450) k/uL Neutrophils % 61 % Lymphocytes % 27 % Monocytes % 6 % Eosinophils % 2 % Basophils % 0 % Neutrophils # 6.0 (1.3-7.7) k/uL Lymphocytes # 2.6 (1.0-4.8) k/uL Monocytes # 0.6 (0-1.0) k/uL Eosinophils # 0.2 (0-0.7) k/uL Basophils # 0.0 (0-0.2) k/uL Sodium (137-145) mmol/L Potassium (3.5-5.1) mmol/L Chloride (98-107) mmol/L Carbon Dioxide (22-30) mmol/L Anion Gap mmol/L BUN (7-17) mg/dL Creatinine (0.52-1.04) mg/dL Est GFR (CKD-EPI)AfAm (>60 ml/min/1.73 sqM) Est GFR (CKD-EPI)NonAf (>60 ml/min/1.73 sqM) Glucose (74-99) mg/dL Calcium (8.4-10.2) mg/dL Total Bilirubin (0.2-1.3) mg/dL AST (14-36) U/L ALT (4-34) U/L Alkaline Phosphatase (38-126) U/L Total Protein (6.3-8.2) g/dL Albumin (3.5-5.0) g/dL Lipase (23-300) U/L Urine Color Urine Appearance (Clear) Urine pH (5.0-8.0) Ur Specific [place] (1.001-1.035) Urine Protein (Negative) Urine Glucose (UA) (Negative) Urine Ketones (Negative) Urine Blood (Negative) Urine Nitrite (Negative) Urine Bilirubin (Negative) Urine Urobilinogen (<2.0) mg/dL Ur Leukocyte Esterase (Negative) Urine RBC (0-5) /hpf Urine WBC (0-5) /hpf Ur Squamous Epith Cells (0-4) /hpf Urine Bacteria (None) /hpf Urine Mucus (None) /hpf Urine HCG, Qual (Not Detectd) Influenza Type A RNA Not Detected (Not Detectd) Influenza Type B (PCR) Not Detected (Not Detectd) Group A Strep Rapid Negative (Negative) 12/15/19 12/15/19 12/15/19 Range/Units 19:05 19:05 19:05 WBC (3.8-10.6) k/uL RBC (3.80-5.40) m/uL Hgb (11.4-16.0) gm/dL Hct (34.0-46.0) % MCV (80.0-100.0) fL MCH (25.0-35.0) pg MCHC (31.0-37.0) g/dL RDW (11.5-15.5) % Plt Count (150-450) k/uL Neutrophils % % Lymphocytes % % Monocytes % % Eosinophils % % Basophils % % Neutrophils # (1.3-7.7) k/uL Lymphocytes # (1.0-4.8) k/uL Monocytes # (0-1.0) k/uL Eosinophils # (0-0.7) k/uL Basophils # (0-0.2) k/uL Sodium 137 (137-145) mmol/L Potassium 4.1 (3.5-5.1) mmol/L Chloride 102 (98-107) mmol/L Carbon Dioxide 26 (22-30) mmol/L Anion Gap 9 mmol/L BUN 11 (7-17) mg/dL Creatinine 0.61 (0.52-1.04) mg/dL Est GFR (CKD-EPI)AfAm >90 (>60 ml/min/1.73 sqM) Est GFR (CKD-EPI)NonAf >90 (>60 ml/min/1.73 sqM) Glucose 89 (74-99) mg/dL Calcium 9.6 (8.4-10.2) mg/dL Total Bilirubin 0.5 (0.2-1.3) mg/dL AST 29 (14-36) U/L ALT 18 (4-34) U/L Alkaline Phosphatase 53 (38-126) U/L Total Protein 7.9 (6.3-8.2) g/dL Albumin 4.7 (3.5-5.0) g/dL Lipase 36 (23-300) U/L Urine Color Yellow Urine Appearance Clear (Clear) Urine pH 6.0 (5.0-8.0) Ur Specific [place] 1.025 (1.001-1.035) Urine Protein Negative (Negative) Urine Glucose (UA) Negative (Negative) Urine Ketones Negative (Negative) Urine Blood Negative (Negative) Urine Nitrite Negative (Negative) Urine Bilirubin Negative (Negative) Urine Urobilinogen <2.0 (<2.0) mg/dL Ur Leukocyte Esterase Negative (Negative) Urine RBC <1 (0-5) /hpf Urine WBC 1 (0-5) /hpf Ur Squamous Epith Cells 3 (0-4) /hpf Urine Bacteria Rare H (None) /hpf Urine Mucus Rare H (None) /hpf Urine HCG, Qual Not Detected (Not Detectd) Influenza Type A RNA (Not Detectd) Influenza Type B (PCR) (Not Detectd) Group A Strep Rapid (Negative) Disposition Clinical Impression: Cough, Gastritis, Sore throat Disposition: HOME SELF-CARE Condition: Stable Instructions (If sedation given, give patient instructions): Gastritis (ED), Pharyngitis (ED), Viral Syndrome (ED) Additional Instructions: Take medication as directed. Follow-up with primary care provider tomorrow. Return to ER immediately if condition worsens in any way. Prescriptions: Pantoprazole Sodium [Protonix] 20 mg PO Q24HR 7 Days #7 tablet. Is patient prescribed a controlled substance at d/c from ED?: No Referrals: [facility] [Primary Care Provider] - 1-2 days
[2019-12-15 19:25] LABS: Basophils % (A) 0 %; Eosinophils # (A) 0.2 k/uL (0-0.7); Eosinophils % (A) 2 %; HCT 41.2 % (34.0-46.0); HGB 13.7 gm/dL (11.4-16.0); Lymphocytes # (A) 2.6 k/uL (1.0-4.8); Lymphocytes % (A) 27 %; MCH 31.1 pg (25.0-35.0); MCHC 33.3 g/dL (31.0-37.0); MCV 93.5 fL (80.0-100.0); Mean Platelet Volume 7.4; Monocytes # (A) 0.6 k/uL (0-1.0); Monocytes % (A) 6 %; Neutrophils % (A) 61 %; Platelet Count 247 k/uL (150-450); RBC 4.41 m/uL (3.80-5.40); RDW 12.1 % (11.5-15.5); WBC 9.8 k/uL (3.8-10.6)
[2019-12-15 19:33] LABS: ALT 18 U/L (4-34); AST 29 U/L (14-36); African American GFR (CKD) >90 (>60 ml/min/1.73 sqM); Albumin 4.7 g/dL (3.5-5.0); Alkaline Phosphatase 53 U/L (38-126); Anion Gap 9 mmol/L; Blood Urea Nitrogen 11 mg/dL (7-17); Calcium 9.6 mg/dL (8.4-10.2); Carbon Dioxide 26 mmol/L (22-30); Chloride 102 mmol/L (98-107); Glucose 89 mg/dL (74-99); Non-African American GFR(CKD) >90 (>60 ml/min/1.73 sqM); Potassium 4.1 mmol/L (3.5-5.1); Sodium 137 mmol/L (137-145); Total Bilirubin 0.5 mg/dL (0.2-1.3); Total Protein 7.9 g/dL (6.3-8.2)
[2019-12-15 19:34] LABS: Bacteria,Urine Rare /hpf; Mucus,Urine Rare /hpf; RBC,Urine <1 /hpf (0-5); Squamous Epithelial Cell,Urine 3 /hpf (0-4); WBC,Urine 1 /hpf (0-5)
[2019-12-15] MEDS ORDERED: MAG HYDROX/AL HYDROX/SIMETH 30 ML, HYOSCYAMINE ELIXIR 10 ML, LIDOCAINE VISCOUS 2% 10 ML PO STA ×3 (19:40)
[2019-12-15] MEDS ORDERED: ACETAMINOPHEN TAB 325 MG TAB PO STA (19:51)
[2019-12-15 20:01] LABS: Appearance,Urine Clear (Clear); Bilirubin,Urine Negative (Negative); Color,Urine Yellow; Glucose,Urine (UA) Negative (Negative); Ketones,Urine Negative (Negative); Protein,Urine Negative (Negative); Specific Gravity,Urine 1.025 (1.001-1.035)
[2019-12-15 20:02] LABS: Blood,Urine Negative (Negative); Leukocyte Esterase,Urine Negative (Negative); Nitrite,Urine Negative (Negative); Urobilinogen,Urine <2.0 mg/dL (<2.0)
--- NOTE | 2019-12-15 20:12 | XR ---
EXAMINATION TYPE: XR chest 2V DATE OF EXAM: 12/15/2019 COMPARISON: 04/01/2019 HISTORY: Cough TECHNIQUE: FINDINGS: Heart and mediastinum are normal. Lungs are clear. Diaphragm is normal. Bony thorax appears normal. IMPRESSION: Normal chest. No change.
--- NOTE | 2019-12-15 20:13 | XR ---
EXAMINATION TYPE: XR KUB DATE OF EXAM: 12/15/2019 COMPARISON: NONE HISTORY: Abdominal pain TECHNIQUE: Single view upright FINDINGS: There is no sign of intestinal obstruction or pneumoperitoneum. Fecal pattern is normal. Th ere is no evidence of a mass. There are no pathologic calcifications over the kidneys. Lung bases are clear. IMPRESSION: Nonacute abdomen.
--- NOTE | 2019-12-15 20:13 | XR ---
EXAMINATION TYPE: XR soft tissue neck DATE OF EXAM: 12/15/2019 COMPARISON: NONE HISTORY: Sore throat. Cough. TECHNIQUE: 2 views FINDINGS: Epiglottis is normal. Subglottic trachea appears normal. Tonsils and adenoids appear normal . IMPRESSION: Normal cervical soft tissue exam.
[2019-12-15] MEDS ORDERED: ONDANSETRON 4 MG ODT STARTER PACK 2 TAB BTL PO STA (21:38)
[2019-12-15] MEDS ORDERED: ONDANSETRON 4 MG/2 ML VIAL IVP STA (21:40)
[2019-12-15] MEDS: ONDANSETRON 4 MG/2 ML VIAL IVP STA ×2 (21:57→21:58)
[2019-12-15 22:01] VITALS: BP 117/93; PULSE 73; RESP 15; TEMP 98.5
== END 2019-12-15 22:06 | disposition home or self-care (01) ==
LOC: EC 17:10
DX: K29.70 Gastritis, unspecified, without bleeding (principal); J02.9 Acute pharyngitis, unspecified; Z32.02 Encounter for pregnancy test, result negative; I10 Essential (primary) hypertension; Z91.011 Allergy to milk products
CPT/HCPCS: 36415; 80053; 83690; 85025; 81003; 81025; 87081; 87430; 87502; 70360; 71046; 74018; 99284; 96374; J2405; S0119

== ENCOUNTER 2020-10-18 13:15 | Inpatient (IN) | payer MEDICAID, OTHER ==
--- NOTE | 2020-10-18 13:33 | ED ---
General Adult HPI - General Chief complaint: Psychiatric Symptoms Stated complaint: Mental Health Time Seen by Provider: 10/18/20 13:20 Source: patient, RN notes reviewed, old records reviewed Mode of arrival: ambulatory Limitations: no limitations - History of Present Illness Initial comments: 20-year-old female with history of depression presenting for suicidal ideation. She is requesting mental health evaluation. She states she's had increased thoughts of suicide including plan to overdose on medication and alcohol. She denies suicide attempt. Denies any physical complaints. - Related Data Home Medications Medication Instructions Recorded Confirmed Cholecalciferol [Vitamin D3 (25 5,000 unit PO DAILY 03/29/19 04/02/19 Mcg = 1000 Iu)] Cyanocobalamin (Vitamin B-12) 1,000 mcg PO DAILY 03/29/19 04/02/19 [Vitamin B-12] Previous Rx's Medication Instructions Recorded FLUoxetine HCL [PROzac] 10 mg PO DAILY #14 cap 04/07/19 Melatonin 1 mg PO HS #28 tab 04/07/19 Pantoprazole [Protonix] 40 mg PO AC-BRKFST #28 tablet. 04/07/19 lisinopriL [Zestril] 10 mg PO DAILY #28 tab 04/07/19 Pantoprazole Sodium [Protonix] 20 mg PO Q24HR 7 Days #7 tablet. 12/15/19 Allergies Allergy/AdvReac Type Severity Reaction Status Date / Time Milk Containing Products Allergy Unknown Verified 10/18/20 13:19 [Dairy] Childhood Review of Systems ROS Statement: Those systems with pertinent positive or pertinent negative responses have been documented in the HPI. ROS Other: All systems not noted in ROS Statement are negative. Past Medical History Past Medical History: Hypertension Additional Past Medical History / Comment(s): Feels her blood pressure is elevated since age 11 or 12, never formally diagnosed with hypertension. History of Any Multi-Drug Resistant Organisms: None Reported Past Surgical History: No Surgical Hx Reported Additional Past Surgical History / Comment(s): dialysis tube inserted in the right thigh Past Anesthesia/Blood Transfusion Reactions: No Reported Reaction Past Psychological History: Bipolar, Depression Smoking Status: Never smoker Past Alcohol Use History: None Reported Past Drug Use History: None Reported - Past Family History Mother Family Medical History: No Reported History Additional Family Medical History / Comment(s): history of heart disease and family in multiple family members Father Family Medical History: No Reported History General Exam Limitations: no limitations General appearance: alert, in no apparent distress Head exam: Present: atraumatic, normocephalic Eye exam: Present: normal appearance, PERRL Neck exam: Present: normal inspection, tenderness Respiratory exam: Present: normal lung sounds bilaterally. Absent: respiratory distress, wheezes Cardiovascular Exam: Present: regular rate, normal rhythm GI/Abdominal exam: Present: soft. Absent: distended, tenderness, guarding Extremities exam: Present: normal inspection, normal capillary refill. Absent: pedal edema Neurological exam: Present: alert, oriented X3, CN II-XII intact. Absent: motor sensory deficit Psychiatric exam: Present: depressed, flat affect, suicidal ideation Skin exam: Present: warm, dry, intact. Absent: cyanosis, diaphoretic Course Vital Signs 10/18/20 13:17 Temperature 98.4 F Pulse Rate 100 Respiratory 18 Rate Blood Pressure 133/85 O2 Sat by Pulse 99 Oximetry - Reevaluation(s) Reevaluation #1: 10/18/20 13:32 Patient cleared for EPS evaluation. Medical Decision Making - Medical Decision Making 20-year-old female presenting for evaluation of depression, suicidal ideation. Patient has been medically cleared and evaluated by EPS. She is felt to require inpatient psychiatric evaluation and treatment. Patient is agreeable with admission. - Lab Data Lab Results 10/18/20 Range/Units 13:43 Urine Opiates Screen Not Detected (NotDetected) Ur Oxycodone Screen Not Detected (NotDetected) Urine Methadone Screen Not Detected (NotDetected) Ur Propoxyphene Screen Not Detected (NotDetected) Ur Barbiturates Screen Not Detected (NotDetected) U Tricyclic Antidepress Not Detected (NotDetected) Ur Phencyclidine Scrn Not Detected (NotDetected) Ur Amphetamines Screen Not Detected (NotDetected) U Methamphetamines Scrn Not Detected (NotDetected) U Benzodiazepines Scrn Not Detected (NotDetected) Urine Cocaine Screen Not Detected (NotDetected) U Marijuana (THC) Screen Detected H (NotDetected) Disposition Clinical Impression: Depression, Suicidal ideation Disposition: ADMITTED IP TO THIS HOSP Condition: Stable Is patient prescribed a controlled substance at d/c from ED?: No Referrals: [facility] [Primary Care Provider] - 1-2 days Decision to Admit Reason: Admit from EC Decision Date: 10/18/20 Decision Time: 14:36
[2020-10-18 14:15] LABS: Amphetamine Screen,Urine Not Detected (NotDetected); Barbiturate Screen,Urine Not Detected (NotDetected); Benzodiazepines Screen,Urine Not Detected (NotDetected); Cocaine Screen,Urine Not Detected (NotDetected); Methadone Screen, Urine Not Detected (NotDetected); Opiate Screen,Urine Not Detected (NotDetected); Oxycodone Screen, Urine Not Detected (NotDetected); Phencyclidine Screen,Urine Not Detected (NotDetected); Tricyclic Antidepressant,Urine Not Detected (NotDetected); Urn Cannabinoid Scrn Detected (NotDetected)
[2020-10-18] MEDS ORDERED: MAG HYDROX/AL HYDROX/SIMETH 30 ML CUP PO PRN (17:25)
[2020-10-18] MEDS ORDERED: LORazepam 1 MG TAB PO PRN (17:25)
[2020-10-18] MEDS ORDERED: MAGNESIUM HYDROXIDE 2,400 MG/10 ML CUP PO PRN (17:25)
[2020-10-18] MEDS ORDERED: ACETAMINOPHEN TAB 325 MG TAB PO PRN (17:25)
[2020-10-18] MEDS ORDERED: LORazepam 2 MG/ML INJ IM PRN (17:28)
[2020-10-18] MEDS ORDERED: HALOPERIDOL LACTATE 5 MG/ML 1 ML VIAL IM PRN (17:28)
[2020-10-19 07:34] LABS: Basophils # (A) 0.1 k/uL (0-0.2); Basophils % (A) 1 %; Eosinophils # (A) 0.2 k/uL (0-0.7); Eosinophils % (A) 2 %; HCT 42.9 % (34.0-46.0); HGB 14.3 gm/dL (11.4-16.0); Lymphocytes # (A) 3.4 k/uL (1.0-4.8); Lymphocytes % (A) 38 %; MCH 31.4 pg (25.0-35.0); MCHC 33.4 g/dL (31.0-37.0); Mean Platelet Volume 6.6; Monocytes # (A) 0.6 k/uL (0-1.0); Monocytes % (A) 6 %; Neutrophils # (A) 4.5 k/uL (1.3-7.7); Neutrophils % (A) 50 %; Platelet Count 238 k/uL (150-450); RBC 4.56 m/uL (3.80-5.40); RDW 12.1 % (11.5-15.5); WBC 8.9 k/uL (3.8-10.6)
[2020-10-19 08:00] LABS: ALT 11 U/L (4-34); AST 21 U/L (14-36); African American GFR (CKD) >90 (>60 ml/min/1.73 sqM); Albumin 4.5 g/dL (3.5-5.0); Alkaline Phosphatase 48 U/L (38-126); Anion Gap 8 mmol/L; Blood Urea Nitrogen 7 mg/dL (7-17); Calcium 9.5 mg/dL (8.4-10.2); Carbon Dioxide 27 mmol/L (22-30); Chloride 104 mmol/L (98-107); Cholesterol 143 mg/dL (<200); Glucose 94 mg/dL (74-99); HDL Cholesterol 70 mg/dL (40-60); LDL Cholesterol,Calculated 64 mg/dL (0-99); Non-African American GFR(CKD) >90 (>60 ml/min/1.73 sqM); Sodium 139 mmol/L (137-145); Total Bilirubin 1.2 mg/dL (0.2-1.3); Total Protein 7.5 g/dL (6.3-8.2); Triglycerides 43 mg/dL (<150)
[2020-10-19] MEDS: LORATADINE 10 MG TAB PO SCH ×3 (08:24→21:56)
[2020-10-19] MEDS ORDERED: INFLUENZA VACCINE (6 MOS+) 60 MCG/0.5 ML SYRINGE IM ONE (10:00)
[2020-10-19] MEDS ORDERED: PNEUMOCOCCAL VACC-PNEUMOVAX 23 25 MCG/0.5 ML VIAL IM ONE (10:00)
[2020-10-19] MEDS: ARIPiprazole 5 MG TAB PO SCH (12:10)
--- NOTE | 2020-10-19 12:14 | P.HP ---
Psychiatric H&P - . H&P Date: 10/19/20 History & Physical: Allergies Allergy/AdvReac Type Severity Reaction Status Date / Time Milk Containing Products Allergy Unknown Verified 10/18/20 17:55 Dairy Childhood Vital Signs Temp 97.6 F 10/19/20 06:03 Pulse 107 H 10/19/20 06:03 Resp 20 10/18/20 17:29 BP 127/78 10/19/20 06:03 Pulse Ox 99 10/18/20 13:17 Intake & Output 10/18/20 10/19/20 10/19/20 18:59 06:59 18:59 Weight 53.637 kg Laboratory Last Values WBC 8.9 k/uL (3.8-10.6) 10/19/20 06:52 RBC 4.56 m/uL (3.80-5.40) 10/19/20 06:52 Hgb 14.3 gm/dL (11.4-16.0) 10/19/20 06:52 Hct 42.9 % (34.0-46.0) 10/19/20 06:52 MCV 94.0 fL (80.0-100.0) 10/19/20 06:52 MCH 31.4 pg (25.0-35.0) 10/19/20 06:52 MCHC 33.4 g/dL (31.0-37.0) 10/19/20 06:52 RDW 12.1 % (11.5-15.5) 10/19/20 06:52 Plt Count 238 k/uL (150-450) 10/19/20 06:52 MPV 6.6 10/19/20 06:52 Neutrophils % 50 % 10/19/20 06:52 Lymphocytes % 38 % 10/19/20 06:52 Monocytes % 6 % 10/19/20 06:52 Eosinophils % 2 % 10/19/20 06:52 Basophils % 1 % 10/19/20 06:52 Neutrophils # 4.5 k/uL (1.3-7.7) 10/19/20 06:52 Lymphocytes # 3.4 k/uL (1.0-4.8) 10/19/20 06:52 Monocytes # 0.6 k/uL (0-1.0) 10/19/20 06:52 Eosinophils # 0.2 k/uL (0-0.7) 10/19/20 06:52 Basophils # 0.1 k/uL (0-0.2) 10/19/20 06:52 Sodium 139 mmol/L (137-145) 10/19/20 06:52 Potassium 4.0 mmol/L (3.5-5.1) 10/19/20 06:52 Chloride 104 mmol/L (98-107) 10/19/20 06:52 Carbon Dioxide 27 mmol/L (22-30) 10/19/20 06:52 Anion Gap 8 mmol/L 10/19/20 06:52 BUN 7 mg/dL (7-17) 10/19/20 06:52 Creatinine 0.66 mg/dL (0.52-1.04) 10/19/20 06:52 Est GFR (CKD-EPI)AfAm >90 (>60 ml/min/1.73 sqM) 10/19/20 06:52 Est GFR (CKD-EPI)NonAf >90 (>60 ml/min/1.73 sqM) 10/19/20 06:52 Glucose 94 mg/dL (74-99) 10/19/20 06:52 Calcium 9.5 mg/dL (8.4-10.2) 10/19/20 06:52 Total Bilirubin 1.2 mg/dL (0.2-1.3) 10/19/20 06:52 AST 21 U/L (14-36) 10/19/20 06:52 ALT 11 U/L (4-34) 10/19/20 06:52 Alkaline Phosphatase 48 U/L (38-126) 10/19/20 06:52 Total Protein 7.5 g/dL (6.3-8.2) 10/19/20 06:52 Albumin 4.5 g/dL (3.5-5.0) 10/19/20 06:52 Triglycerides 43 mg/dL (<150) 10/19/20 06:52 Cholesterol 143 mg/dL (<200) 10/19/20 06:52 LDL Cholesterol, Calc 64 mg/dL (0-99) 10/19/20 06:52 HDL Cholesterol 70 mg/dL (40-60) H 10/19/20 06:52 TSH 3.390 mIU/L (0.465-4.680) 10/19/20 06:52 Urine Opiates Screen Not Detected (NotDetected) 10/18/20 13:43 Ur Oxycodone Screen Not Detected (NotDetected) 10/18/20 13:43 Urine Methadone Screen Not Detected (NotDetected) 10/18/20 13:43 Ur Propoxyphene Screen Not Detected (NotDetected) 10/18/20 13:43 Ur Barbiturates Screen Not Detected (NotDetected) 10/18/20 13:43 U Tricyclic Antidepress Not Detected (NotDetected) 10/18/20 13:43 Ur Phencyclidine Scrn Not Detected (NotDetected) 10/18/20 13:43 Ur Amphetamines Screen Not Detected (NotDetected) 10/18/20 13:43 U Methamphetamines Scrn Not Detected (NotDetected) 10/18/20 13:43 U Benzodiazepines Scrn Not Detected (NotDetected) 10/18/20 13:43 Urine Cocaine Screen Not Detected (NotDetected) 10/18/20 13:43 U Marijuana (THC) Screen Detected (NotDetected) H 10/18/20 13:43 Coronavirus (PCR) Not Detected (Not Detectd) 10/18/20 15:02 10/19/20 11:30 IDENTIFYING DATA: Patient is a 20-year-old female who currently lives with her grandmother and sister and her sister in a house 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 HPI: Patient presented to the hospital yesterday with complaints of depression and suicidal thoughts and a plan to overdose on her medications and alcohol. Patient apparently had a UDS which showed positive for THC. Patient was seen on the unit and agreeable to speak to caption writer however asked to have a female nursing consultant present. Patient appeared to be somewhat irritable and labile during conversation. She spoke about having borderline personality disorder and PTSD. She states that she has been feeling depressed lately and was suicidal however states that "I don't want to " and claims that she came to the hospital. She states that she has been having issues at work including seeing a "stalker" who has been bothering her in the past and came to mind recently. She states that she is also been having difficulties with her friendships and also family issues. She states that recently her sister moved in with her girlfriend which has been stressful for her. She states that the holiday time is difficult for her in general. She states that she has been irritable lately however graduated from the DBT program at [facility] and is now doing PTSD therapy. She states that her mood is "pissed" and spoke mainly about feeling upset that she has to repeat the same story over again to caption writer. She endorsed anxiety at this time. She claims that she has been off her medications for several months now and self discontinued because she felt they were not working. She mentions that she has been having poor sleep approximately 3 hours a night. She states that today she was feeling suicidal however no intent or plan. She denies any homicidal ideations intent or plan. She did endorse auditory hallucinations mainly different commands however "they don't mean anything to me". She denies any visual hallucinations. Patient denies any flight of ideas racing thoughts and increased in goal directed behavior. Patient admits to using marijuana daily and denies any other recreational drug use. PAST PSYCHIATRIC HISTORY: Patient states that she has history of borderline personality disorder and PTSD along with depression and anxiety. Patient self discontinued her medications and was previously on BuSpar, Cymbalta and trazodone. She was previously admitted to the mental health unit in March 2019. She currently follows up with her outpatient therapist at [facility] and also last saw Dr. Eddy her psychiatrist in early July. She claims that she had a lithium overdose in 2019. PMH: Hypertension ALLERGIES: as per EMR CHEMICAL DEPENDENCY HISTORY: as per HPI FAMILY PSYCHIATRIC/SUBSTANCE USE HISTORY: States that her mother has bipolar disorder and her father has some form of psychiatric illness. SOCIAL HISTORY: Patient was born and raised in [facility] and states that she completed some college and high school. She denies any legal problems or halfway time in the past. 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 She denies having any kids and is currently single. MENTAL STATUS EXAM: General Appearance: Patient appears to be short in stature, stated age is alert, irritable at times and labile.. Patient appears to have fair hygiene and grooming. Behavior: Patient is seated without any agitated behavior. Argumentative at times. Speech: Patient's speech is fluent and nonpressured. Mood/Affect: Patient reports their mood is depressed, affect is congruent and labile. Suicidality/Homicidality: Patient denies having any homicidal ideation intent or plan. It's too ongoing suicidal ideations however no intent or plan. Perceptions: Patient denies any visual hallucinations and admits to auditory hallucinations. Though content/process: There is no evidence of any delusional thought content and thought process is linear and goal-directed. Preoccupied with her symptoms. Memory and concentration: AOX3, grossly intact for the purposes of this session. Can spell "WORLD" backwards Judgment and insight: poor/impulsive STRENGTHS/WEAKNESSES: strength is that patient is resilient. Weakness is that patient has poor judgment and is impulsive INTELLECT: average IMPRESSIONS: Depressive disorder unspecified Borderline personality disorder History of PTSD Cannabis use disorder PLAN: -Patient is admitted under voluntary status to MHU for stabilization of psychiatric symptoms and safety. Patient has signed adult voluntary form and medication consent and is placed in patient's chart. -Medications : Will start patient on Abilify 2.5 mg daily for mood stabilization. I would expect that this medication be gradually increased as tolerated over the next few days. Started melatonin daily at bedtime for insomnia. BuSpar 15 mg twice a day for anxiety. -Ativan and Haldol PRN for agitation/aggression -Patient was counselled on substance abuse and desired to cut back on use -Patient was informed of the risks, benefits and side effects of the medication and patient verbally consented to taking the medications. Patient signed med consent form and was placed in chart. -Internal Medicine consult to perform medical evaluation and physical. -NRT -not needed as patient does not smoke. -SW on board for discharge planning. Encourage patient to participate in groups to work on coping skills. Patient will need to follow up once again at [facility] upon discharge and likely continue on DBT therapy.
[2020-10-19] MEDS: busPIRone HCl 5 MG TAB PO SCH ×2 (13:44→21:57)
[2020-10-19 16:44] LABS: Hemoglobin A1C 4.6 % (4.0-6.0)
[2020-10-19] MEDS: MELATONIN 5 MG TABLET PO SCH (21:56)
--- NOTE | 2020-10-20 03:32 | P.CONS ---
History of Present Illness - Reason for Consult Consult date: 10/20/20 - History of Present Illness Patient was seen and evaluated with Rohini THOMPSON from [facility]. I was never alone with the patient. Patient is a 20-year-old female with a PMH of depression and multiple suicide attempts with overdose who presented to the emergency room with complaint of depression and suicidal ideation. The patient was admitted to the mental health unit where she was seen and evaluated earlier today. The patient notes feeling better since admission. She reported chronic left knee pain, for which she was scheduled to receive an MRI as an outpatient. She also reported some right leg pain ever since her previous hospitalizations. Denied fever, chills, chest pain, shortness of nausea, vomiting, abdominal pain. Review of Systems Pertinent positives and negatives as discussed in HPI, a complete review of systems was performed and all other systems are negative. Past Medical History Past Medical History: Hypertension Additional Past Medical History / Comment(s): Feels her blood pressure is elevated since age 11 or 12, never formally diagnosed with hypertension. History of Any Multi-Drug Resistant Organisms: None Reported Past Surgical History: No Surgical Hx Reported Additional Past Surgical History / Comment(s): dialysis tube inserted in the right thigh Past Anesthesia/Blood Transfusion Reactions: No Reported Reaction Past Psychological History: Bipolar, Depression Smoking Status: Never smoker Past Alcohol Use History: None Reported Past Drug Use History: None Reported - Past Family History Mother Family Medical History: No Reported History Additional Family Medical History / Comment(s): history of heart disease and fa liz in multiple family members Father Family Medical History: No Reported History Medications and Allergies Home Medications Medication Instructions Recorded Confirmed Type Loratadine 10 mg PO DAILY 10/18/20 10/18/20 History Melatonin 20 mg PO HS 10/18/20 10/18/20 History Allergies Allergy/AdvReac Type Severity Reaction Status Date / Time Milk Containing Products Allergy Unknown Verified 10/18/20 17:55 [Dairy] Childhood Physical Exam Vitals: Vital Signs Temp Pulse BP 10/19/20 21:46 97.8 F 10/19/20 13:11 97.8 F 10/19/20 06:03 97.6 F 107 H 127/78 General: non toxic, no distress, appears at stated age, normal weight Derm: no unusual rashes/lesions no unusual ecchymoses, warm, dry Head: atraumatic, normocephalic, symmetric Eyes: EOMI, no lid lag, anicteric sclera, pupils equal round reactive to light ENT: Nose and ears atraumatic, no thrush, no pharyngeal erythema Neck: No thyromegaly, no cervical lymphadenopathy, trachea midline, supple Mouth: no lip lesion, mucus membranes moist Cardiovascular: S1S2 reg, no murmur, positive posterior tibial pulse bilateral, no edema, capillary refill less than 2 seconds Lungs: CTA bilateral, no rhonchi, no rales , no accessory muscle use Abdominal: soft, nontender to palpation, no guarding, no appreciable organomegaly, normal bowel sounds Ext: no gross muscle atrophy, muscle strength 5 out of 5 in all 4 extremities grossly, no contractures, left knee without effusion, tenderness, or overlying skin changes Neuro: CN II-XI grossly intact, light touch intact all 4 extremities, finger to nose within normal limits, Psych: Alert, oriented, appropriate affect Results CBC & Chem 7: 10/19/20 06:52 10/19/20 06:52 Labs: Abnormal Lab Results - Last 24 Hours (Table) 10/19/20 Range/Units 06:52 HDL Cholesterol 70 H (40-60) mg/dL Assessment and Plan Plan: Chronic left knee pain -Currently 0 out of 10 -Advised patient to pursue her MRI as an outpatient with subsequent follow-up Depression and suicidal ideation -As per psychiatry GERD -Protonix Thank you for allowing us to participate in the care of this patient. We will follow peripherally. Do not hesitate to contact us with questions. Someone can be reached from the [facility] hospitalist group at all hours of the day at [phone].
[2020-10-20] MEDS: PANTOPRAZOLE 40 MG TABLET PO SCH (09:08)
[2020-10-20] MEDS: ARIPiprazole 5 MG TAB PO SCH (09:08)
[2020-10-20] MEDS: busPIRone HCl 5 MG TAB PO SCH (09:08)
--- NOTE | 2020-10-20 14:02 | PN ---
PROGRESS NOTE DATE OF SERVICE: 10/20/2020. CHIEF COMPLAINT: The patient was depressed. She had suicide thoughts with a plan to overdose on her medications and alcohol. INTERVAL HISTORY: Patient has been doing fair. She had a quiet day yesterday. She attended groups. It is noteworthy that in one group it was noted as follows "thinking about healthy relationships makes me feel bad because you are telling me that people I care about should treat me well and respect me." In another group it was noted that "they keep us here because they do not like our motions." The patient comes out in the day area. She stayed up quite late apparently talking with her roommate. Nursing documented that she slept for about 3 hours after 2 a.m. Today she has been up. She continues to come out and will interact with others. She attended groups today so far and has seemed to be appropriate in her interactions. When I talked to her, she said she was tired and believes that the morning dose of BuSpar 15 mg is too high for her. She wants to reduce the dose to 10 mg in the morning, which she would take in addition to her Abilify. She feels that Abilify has helped her where she feels more calm in her emotions. She has a better outlook. She is not reporting significant issues with depressed mood. It is noted that she has been doing EMDR to help deal with posttraumatic issues. She stated that she was not comfortable discussing past trauma and said that she has worked in EMDR to have a safe place for her memories regarding this and that it would be just distressing to her to talk about it. She seems to continue to struggle with relationship issues both with her sister who has moved into the home where she lives and also with her grandmother. Her grandmother owns the home that the family lives in. She described the grandmother as controlling. It is noteworthy that much of her presentation for this admission and the issues she seems to be struggling with are quite similar to how she presented when she was previously hospitalized April 03, 2019 here. She is in regular followup through [facility] and sees Dr. Eddy. For the most part she appears to tolerate her psychotropic medications. MENTAL STATUS: Patient sat with some restlessness. She gave fairly good eye contact. She answered questions with brief responses. Her thoughts were clear. She had a restricted affect and seem to intellectual lies her issues. Her mood was reserved. She had a somewhat tense manner and seemed to be moderately distressed. There was no outward evidence of thought disorder. Cognition was clear. ASSESSMENT: I will continue the current diagnosis and treatment plan. We will continue to make efforts to engage the patient in individual and group therapeutic activities. I will continue the patient on Abilify 2.5 mg a day. I will reduce her BuSpar to 10 mg in the morning, 15 mg at bedtime. As per the patient request, it will be critical to get outside information to get a clear picture of things. It is noteworthy that the patient continues to struggle with relationship issues and apparent poor self-esteem. We will focus on stabilization and discharge planning. ARCELIA / DANIEL: [id number] /
[2020-10-20] MEDS ORDERED: busPIRone HCl 5 MG TAB PO SCH (21:00)
[2020-10-20] MEDS: LORATADINE 10 MG TAB PO SCH (22:06)
[2020-10-20] MEDS: MELATONIN 5 MG TABLET PO SCH (22:06)
[2020-10-21 04:38] LABS: Appearance,Urine Clear (Clear); Bilirubin,Urine Negative (Negative); Blood,Urine Negative (Negative); Color,Urine Yellow; Glucose,Urine (UA) Negative (Negative); Ketones,Urine Negative (Negative); Leukocyte Esterase,Urine Negative (Negative); Nitrite,Urine Negative (Negative); PH, Urine 5.5 (5.0-8.0); Protein,Urine Negative (Negative); Specific Gravity,Urine 1.007 (1.001-1.035); Urobilinogen,Urine <2.0 mg/dL (<2.0)
[2020-10-21 07:13] VITALS: BP 142/99; PULSE 112; RESP 16
[2020-10-21] MEDS: PANTOPRAZOLE 40 MG TABLET PO SCH (08:44)
[2020-10-21] MEDS: ARIPiprazole 5 MG TAB PO SCH (08:44)
[2020-10-21] MEDS ORDERED: busPIRone HCl 10 MG TAB PO SCH (09:00)
[2020-10-21 12:50] VITALS: TEMP 97.5
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
== END 2020-10-21 13:25 | disposition home or self-care (01) | DRG 881 ==
LOC: EC 13:15 → 3MHU 16:03
PROVIDERS: ADMIT Psychiatry & Neurology Psychiatry; ATTEND Psychiatry & Neurology Psychiatry
DX: F32.9 Major depressive disorder, single episode, unspecified (principal); R45.851 Suicidal ideations; F43.10 Post-traumatic stress disorder, unspecified; F60.3 Borderline personality disorder; G89.29 Other chronic pain; I10 Essential (primary) hypertension; M25.562 Pain in left knee; Z20.828 Contact with and (suspected) exposure to other viral communicable diseases; F12.90 Cannabis use, unspecified, uncomplicated; F41.9 Anxiety disorder, unspecified; Z79.899 Other long term (current) drug therapy; Z91.5 Personal history of self-harm; Z91.011 Allergy to milk products; Z81.8 Family history of other mental and behavioral disorders
CPT/HCPCS: 80053; 80061; 80306; 81003; 81025; 82075; 83036; 84443; 85025; 87635; 90686; 90732; 99285

== ENCOUNTER 2020-12-20 13:53 | Inpatient (IN) | payer MEDICAID, OTHER ==
[2020-12-20 15:16] LABS: Basophils # (A) 0.1 k/uL (0-0.2); Basophils % (A) 1 %; Eosinophils # (A) 0.1 k/uL (0-0.7); Eosinophils % (A) 2 %; HCT 46.1 % (34.0-46.0); HGB 15.6 gm/dL (11.4-16.0); Lymphocytes % (A) 23 %; MCH 31.5 pg (25.0-35.0); MCHC 33.9 g/dL (31.0-37.0); Mean Platelet Volume 6.6; Monocytes # (A) 0.5 k/uL (0-1.0); Monocytes % (A) 6 %; Neutrophils % (A) 68 %; Platelet Count 293 k/uL (150-450); RBC 4.96 m/uL (3.80-5.40); RDW 11.7 % (11.5-15.5); WBC 8.7 k/uL (3.8-10.6)
--- NOTE | 2020-12-20 15:19 | ED ---
Psych HPI - General Chief Complaint: Psychiatric Symptoms Stated Complaint: Mental health Time Seen by Provider: 12/20/20 14:49 Source: patient, RN notes reviewed Mode of arrival: ambulatory - History of Present Illness Initial Comments: Patient is a 18-year-old female presents to emergency by complaining of suicidal ideation with a plan. She'll that she was recently discharged on 2019 for the same issue. She noted that the feelings and ideas never really faded away because stated there and she tried yet with it. She noted she has not been to her primary care. She has talked to her therapist once or twice. She noted that her plan this time was to take any pills that she did find laying around such as tramadol Seroquel buspirone or wherever her grandma had at home. She denied any other issues or complaints or pain. She denied any chest pain shortness of breath headache nausea vomiting diarrhea constipation fever fatigue chills - Related Data Home Medications Medication Instructions Recorded Confirmed Loratadine 10 mg PO DAILY 10/18/20 10/18/20 Previous Rx's Medication Instructions Recorded ARIPiprazole [Abilify] 2.5 mg PO DAILY #30 tab 10/21/20 Loratadine [Claritin] 10 mg PO HS tab 10/21/20 Melatonin 5 mg PO HS tablet 10/21/20 busPIRone HCl [Buspar] 10 mg PO DAILY #30 tab 10/21/20 busPIRone HCl [Buspar] 15 mg PO HS #30 tab 10/21/20 Allergies Allergy/AdvReac Type Severity Reaction Status Date / Time Milk Containing Products Allergy Unknown Verified 12/20/20 14:15 [Dairy] Childhood Review of Systems ROS Statement: Those systems with pertinent positive or pertinent negative responses have been documented in the HPI. ROS Other: All systems not noted in ROS Statement are negative. Past Medical History Past Medical History: Hypertension Additional Past Medical History / Comment(s): Feels her blood pressure is elevated since age 11 or 12, never formally diagnosed with hypertension. History of Any Multi-Drug Resistant Organisms: None Reported Past Surgical History: No Surgical Hx Reported Additional Past Surgical History / Comment(s): dialysis tube inserted in the right thigh Past Anesthesia/Blood Transfusion Reactions: No Reported Reaction Past Psychological History: Bipolar, Depression Smoking Status: Vaper Past Alcohol Use History: Heavy Past Drug Use History: Marijuana - Past Family History Mother Family Medical History: No Reported History Additional Family Medical History / Comment(s): history of heart disease and family in multiple family members Father Family Medical History: No Reported History General Exam General appearance: alert, in no apparent distress Head exam: Present: atraumatic, normocephalic, normal inspection Eye exam: Present: normal appearance, PERRL, EOMI. Absent: scleral icterus, conjunctival injection, periorbital swelling ENT exam: Present: normal exam, mucous membranes moist Neck exam: Present: normal inspection. Absent: tenderness, meningismus, lymphadenopathy Respiratory exam: Present: normal lung sounds bilaterally. Absent: respiratory distress, wheezes, rales, rhonchi, stridor Cardiovascular Exam: Present: regular rate, normal rhythm, normal heart sounds. Absent: systolic murmur, diastolic murmur, rubs, gallop, clicks GI/Abdominal exam: Present: soft, normal bowel sounds. Absent: distended, tenderness, guarding, rebound, rigid Extremities exam: Present: normal inspection, full ROM, normal capillary refill. Absent: tenderness, pedal edema, joint swelling, calf tenderness Back exam: Present: normal inspection Neurological exam: Present: alert, oriented X3, CN II-XII intact Psychiatric exam: Present: depressed, flat affect Skin exam: Present: warm, dry, intact, normal color. Absent: rash Course Vital Signs 12/20/20 12/20/20 12/20/20 14:15 15:19 16:19 Temperature 98.5 F Pulse Rate 84 Respiratory 16 18 18 Rate Blood Pressure 135/79 O2 Sat by Pulse 99 Oximetry Medical Decision Making - Medical Decision Making 18 oh female complaining of suicidal ideations with a plan. Labs, alcohol breath test, urine drug screen ordered. Case discussed with Dr. Son, who decided that after patient is medically cleared she can be evaluated by psych. Labs: Unremarkable. After psych evaluation and consult with psych nurse patient will be admitted inpatient. Case discussed with Dr. Son. - Lab Data Result diagrams: 12/20/20 15:09 12/20/20 15:09 Lab Results 12/20/20 12/20/20 12/20/20 Range/Units 15:09 15:09 15:09 WBC 8.7 (3.8-10.6) k/uL RBC 4.96 (3.80-5.40) m/uL Hgb 15.6 (11.4-16.0) gm/dL Hct 46.1 H (34.0-46.0) % MCV 93.0 (80.0-100.0) fL MCH 31.5 (25.0-35.0) pg MCHC 33.9 (31.0-37.0) g/dL RDW 11.7 (11.5-15.5) % Plt Count 293 (150-450) k/uL MPV 6.6 Neutrophils % 68 % Lymphocytes % 23 % Monocytes % 6 % Eosinophils % 2 % Basophils % 1 % Neutrophils # 6.0 (1.3-7.7) k/uL Lymphocytes # 2.0 (1.0-4.8) k/uL Monocytes # 0.5 (0-1.0) k/uL Eosinophils # 0.1 (0-0.7) k/uL Basophils # 0.1 (0-0.2) k/uL Sodium 139 (137-145) mmol/L Potassium 3.9 (3.5-5.1) mmol/L Chloride 103 (98-107) mmol/L Carbon Dioxide 25 (22-30) mmol/L Anion Gap 11 mmol/L BUN 6 L (7-17) mg/dL Creatinine 0.62 (0.52-1.04) mg/dL Est GFR (CKD-EPI)AfAm >90 (>60 ml/min/1.73 sqM) Est GFR (CKD-EPI)NonAf >90 (>60 ml/min/1.73 sqM) Glucose 97 (74-99) mg/dL Calcium 9.7 (8.4-10.2) mg/dL Urine Color Urine Appearance (Clear) Urine pH (5.0-8.0) Ur Specific [place] (1.001-1.035) Urine Protein (Negative) Urine Glucose (UA) (Negative) Urine Ketones (Negative) Urine Blood (Negative) Urine Nitrite (Negative) Urine Bilirubin (Negative) Urine Urobilinogen (<2.0) mg/dL Ur Leukocyte Esterase (Negative) Urine RBC (0-5) /hpf Urine WBC (0-5) /hpf Ur Squamous Epith Cells (0-4) /hpf Urine Bacteria (None) /hpf Urine Mucus (None) /hpf Urine Opiates Screen Not Detected (NotDetected) Ur Oxycodone Screen Not Detected (NotDetected) Urine Methadone Screen Not Detected (NotDetected) Ur Propoxyphene Screen Not Detected (NotDetected) Ur Barbiturates Screen Not Detected (NotDetected) U Tricyclic Antidepress Not Detected (NotDetected) Ur Phencyclidine Scrn Not Detected (NotDetected) Ur Amphetamines Screen Not Detected (NotDetected) U Methamphetamines Scrn Not Detected (NotDetected) U Benzodiazepines Scrn Not Detected (NotDetected) Urine Cocaine Screen Not Detected (NotDetected) U Marijuana (THC) Screen Detected H (NotDetected) 12/20/20 Range/Units 15:09 WBC (3.8-10.6) k/uL RBC (3.80-5.40) m/uL Hgb (11.4-16.0) gm/dL Hct (34.0-46.0) % MCV (80.0-100.0) fL MCH (25.0-35.0) pg MCHC (31.0-37.0) g/dL RDW (11.5-15.5) % Plt Count (150-450) k/uL MPV Neutrophils % % Lymphocytes % % Monocytes % % Eosinophils % % Basophils % % Neutrophils # (1.3-7.7) k/uL Lymphocytes # (1.0-4.8) k/uL Monocytes # (0-1.0) k/uL Eosinophils # (0-0.7) k/uL Basophils # (0-0.2) k/uL Sodium (137-145) mmol/L Potassium (3.5-5.1) mmol/L Chloride (98-107) mmol/L Carbon Dioxide (22-30) mmol/L Anion Gap mmol/L BUN (7-17) mg/dL Creatinine (0.52-1.04) mg/dL Est GFR (CKD-EPI)AfAm (>60 ml/min/1.73 sqM) Est GFR (CKD-EPI)NonAf (>60 ml/min/1.73 sqM) Glucose (74-99) mg/dL Calcium (8.4-10.2) mg/dL Urine Color Yellow Urine Appearance Clear (Clear) Urine pH 6.5 (5.0-8.0) Ur Specific [place] 1.016 (1.001-1.035) Urine Protein Negative (Negative) Urine Glucose (UA) Negative (Negative) Urine Ketones Negative (Negative) Urine Blood Trace H (Negative) Urine Nitrite Negative (Negative) Urine Bilirubin Negative (Negative) Urine Urobilinogen <2.0 (<2.0) mg/dL Ur Leukocyte Esterase Trace H (Negative) Urine RBC 3 (0-5) /hpf Urine WBC 2 (0-5) /hpf Ur Squamous Epith Cells 1 (0-4) /hpf Urine Bacteria Rare H (None) /hpf Urine Mucus Few H (None) /hpf Urine Opiates Screen (NotDetected) Ur Oxycodone Screen (NotDetected) Urine Methadone Screen (NotDetected) Ur Propoxyphene Screen (NotDetected) Ur Barbiturates Screen (NotDetected) U Tricyclic Antidepress (NotDetected) Ur Phencyclidine Scrn (NotDetected) Ur Amphetamines Screen (NotDetected) U Methamphetamines Scrn (NotDetected) U Benzodiazepines Scrn (NotDetected) Urine Cocaine Screen (NotDetected) U Marijuana (THC) Screen (NotDetected) Disposition Clinical Impression: Suicidal ideation, Depression Disposition: ADMITTED IP TO THIS [facility] Condition: Stable Is patient prescribed a controlled substance at d/c from ED?: No Referrals: [facility] [Primary Care Provider] - 1-2 days Time of Disposition: 17:02
[2020-12-20 15:26] LABS: Amphetamine Screen,Urine Not Detected (NotDetected); Appearance,Urine Clear (Clear); Bacteria,Urine Rare /hpf; Barbiturate Screen,Urine Not Detected (NotDetected); Benzodiazepines Screen,Urine Not Detected (NotDetected); Bilirubin,Urine Negative (Negative); Blood,Urine Trace (Negative); Cocaine Screen,Urine Not Detected (NotDetected); Color,Urine Yellow; Glucose,Urine (UA) Negative (Negative); Ketones,Urine Negative (Negative); Leukocyte Esterase,Urine Trace (Negative); Methadone Screen, Urine Not Detected (NotDetected); Mucus,Urine Few /hpf; Nitrite,Urine Negative (Negative); Opiate Screen,Urine Not Detected (NotDetected); Oxycodone Screen, Urine Not Detected (NotDetected); PH, Urine 6.5 (5.0-8.0); Phencyclidine Screen,Urine Not Detected (NotDetected); Protein,Urine Negative (Negative); RBC,Urine 3 /hpf (0-5); Specific Gravity,Urine 1.016 (1.001-1.035); Squamous Epithelial Cell,Urine 1 /hpf (0-4); Tricyclic Antidepressant,Urine Not Detected (NotDetected); Urn Cannabinoid Scrn Detected (NotDetected); Urobilinogen,Urine <2.0 mg/dL (<2.0); WBC,Urine 2 /hpf (0-5)
[2020-12-20 15:36] LABS: African American GFR (CKD) >90 (>60 ml/min/1.73 sqM); Anion Gap 11 mmol/L; Blood Urea Nitrogen 6 mg/dL (7-17); Calcium 9.7 mg/dL (8.4-10.2); Carbon Dioxide 25 mmol/L (22-30); Chloride 103 mmol/L (98-107); Glucose 97 mg/dL (74-99); Non-African American GFR(CKD) >90 (>60 ml/min/1.73 sqM); Potassium 3.9 mmol/L (3.5-5.1); Sodium 139 mmol/L (137-145)
[2020-12-20] MEDS ORDERED: MAG HYDROX/AL HYDROX/SIMETH 30 ML CUP PO PRN (18:41)
[2020-12-20] MEDS ORDERED: MAGNESIUM HYDROXIDE 2,400 MG/10 ML CUP PO PRN (18:41)
[2020-12-20] MEDS ORDERED: HALOPERIDOL LACTATE 5 MG/ML 1 ML VIAL IM PRN (18:42)
[2020-12-20] MEDS ORDERED: LORazepam 2 MG/ML INJ IM PRN (18:42)
[2020-12-20] MEDS: LORazepam 1 MG TAB PO PRN (18:57)
[2020-12-20] MEDS ORDERED: traZODone HCL 100 MG TAB PO PRN (21:13)
[2020-12-20] MEDS ORDERED: QUEtiapine 50 MG TAB PO SCH (21:30)
[2020-12-20] MEDS: busPIRone HCl 5 MG TAB PO SCH (21:41)
[2020-12-21] MEDS: busPIRone HCl 5 MG TAB PO SCH ×2 (08:27→21:45)
[2020-12-21] MEDS: LORATADINE 10 MG TAB PO SCH (08:28)
[2020-12-21] MEDS ORDERED: ARIPiprazole 5 MG TAB PO STA (09:55)
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
[2020-12-21] MEDS: LORazepam 1 MG TAB PO PRN (15:08)
[2020-12-21] MEDS: ACETAMINOPHEN TAB 325 MG TAB PO PRN (19:28)
[2020-12-21] MEDS: PRAZOSIN 1 MG CAP PO SCH (21:45)
[2020-12-21] MEDS: MIRTAZAPINE 15 MG TAB PO SCH (21:45)
--- NOTE | 2020-12-22 00:57 | P.PN ---
Progress Note - Text Progress Note Date: 12/21/20 attempted to see the patient for requested medical eval, however, she had just took her night meds, and did not feel like talking or answering any questions, and asked me to stop the interview at this time,. JAY Qureshi was present in the room during evaluation.
[2020-12-22] MEDS: LORATADINE 10 MG TAB PO SCH (08:58)
[2020-12-22] MEDS: ARIPiprazole 10 MG TAB PO SCH (08:58)
[2020-12-22] MEDS: busPIRone HCl 10 MG TAB PO SCH ×2 (08:58→21:44)
--- NOTE | 2020-12-22 09:06 | P.PN ---
Progress Note - Text Progress Note Date: 12/22/20 Interval History: Patient was seen wandering the hallways and was directable and agreeable to speak with typewriter tester in the office. Patient reports that she had difficulty this morning due to a song that was on the radio. She states that this song reminded her of people that she used to associate with them caused her to feel upset and sad. Despite this, the patient is not reporting any thoughts of self-harm or thoughts of hurting others. She does report suicidal ideation but states that this is decreased in severity and frequency. She continues to endorse auditory hallucinations but denies any visual hallucinations. She reports that auditory hallucinations have not changed in nature and continued to be somewhat demeaning. She has been adherent with her medications is not reporting any significant side effects at this time. The patient reports that she was able to sleep well last night. She reports no issues with appetite. Mental Status Exam: General Appearance: Patient appears to be stated age is alert, directable, and cooperative. Petite and thin build with a nose ring. Behavior: Patient is calmly seated without any agitated behavior. Psychomotor activity appears normal. Speech: Patient's speech is fluent and nonpressured. Mood/Affect: Mood is improving mildly, affect is congruent and constricted. Suicidality/Homicidality: Patient denies any homicidal ideation, intention, and/or plan. She endorses suicidal ideation but no intention or plan. Perceptions: Patient denies any visual hallucinations but endorses auditory hallucinations. Though content/process: There is no evidence of any delusional thought content and thought process is linear and goal-directed. Memory and concentration: AOX3, grossly intact for the purposes of this session Judgment and insight: Improving mildly Assessment Major depressive disorder, recurrent, severe Borderline personality disorder Posttraumatic stress disorder Cannabis use disorder Plan: -Patient continues to meet criteria for inpatient psychiatric admission for symptom stabilization and safety. Patient has signed adult voluntary form and medication consent and was placed in patient's chart. -Medications: Increase abilify to 10 mg tomorrow for mood augmentation Remeron 7.5 mg by mouth at bedtime for depression/insomnia Prazosin 1 mg by mouth at bedtime for PTSD related nightmares Increase BuSpar to 20 mg by mouth twice a day for anxiety -When necessary Ativan and Haldol for agitation/aggression. -SW on board for discharge planning. Encouraged the patient to participate in milieu.
[2020-12-22] MEDS: MIRTAZAPINE 15 MG TAB PO SCH (21:45)
[2020-12-22] MEDS: PRAZOSIN 1 MG CAP PO SCH (21:45)
[2020-12-23] MEDS: LORATADINE 10 MG TAB PO SCH (07:59)
[2020-12-23] MEDS: busPIRone HCl 10 MG TAB PO SCH ×3 (07:59→21:10)
[2020-12-23] MEDS: ARIPiprazole 10 MG TAB PO SCH (07:59)
--- NOTE | 2020-12-23 11:01 | P.PN ---
Progress Note - Text Progress Note Date: 12/23/20 Interval History: Patient was seen wandering the hallways and was directable and agreeable to speak with inspector automatic typewriter in the office. Patient reports that her primary concern today is anxiety. She states that she feels constantly wound up and that something bad may happen. She reports that this is causing her to feel more depressed from interrupting her ability to participate in milieu activities. Furthermore, the patient is endorsing auditory hallucinations that occur primarily when she is alone in her room. She is otherwise not endorsing any suicidal or homicidal ideation, intention, and/or plan. She is not reporting any visual hallucinations. She denies any paranoia or delusions. She reports that sleep has improved and so is her appetite. She has been adherent with her medications is not reporting any significant side effects at this time. Mental Status Exam: General Appearance: Patient appears to be stated age is alert, directable, and cooperative. Petite and thin build with a nose ring. Behavior: Patient is calmly seated without any agitated behavior. Psychomotor activity appears normal. Speech: Patient's speech is fluent and nonpressured. Mood/Affect: Mood is anxious, affect is congruent and nervous. Suicidality/Homicidality: The patient is not reporting any suicidal or homicidal ideation, intention, and/or plan today. Perceptions: Patient denies any visual hallucinations but endorses auditory hallucinations. Though content/process: There is no evidence of any delusional thought content and thought process is linear and goal-directed. Memory and concentration: AOX3, grossly intact for the purposes of this session Judgment and insight: Improving mildly Assessment Major depressive disorder, recurrent, severe Borderline personality disorder Posttraumatic stress disorder Cannabis use disorder Plan: -Patient continues to meet criteria for inpatient psychiatric admission for symptom stabilization and safety. Patient has signed adult voluntary form and medication consent and was placed in patient's chart. -Medications: Increase abilify to 10 mg today, and we will gradually titrate over the weekend to 20 mg daily. Increase remeron to 15 mg by mouth at bedtime for depression/insomnia Increase Prazosin to 2 mg by mouth at bedtime for PTSD related nightmares Increase BuSpar to 20 mg by mouth three times a day for anxiety -When necessary Ativan and Haldol for agitation/aggression. -SW on board for discharge planning. Encouraged the patient to participate in milieu.
[2020-12-23] MEDS: MIRTAZAPINE 15 MG TAB PO SCH (21:10)
[2020-12-23] MEDS: PRAZOSIN 1 MG CAP PO SCH (21:10)
[2020-12-24] MEDS: LORazepam 1 MG TAB PO PRN (03:48)
[2020-12-24] MEDS: ARIPiprazole 10 MG TAB PO SCH ×2 (08:47→08:52)
[2020-12-24] MEDS: busPIRone HCl 10 MG TAB PO SCH ×3 (08:48→20:51)
[2020-12-24] MEDS: LORATADINE 10 MG TAB PO SCH (08:48)
[2020-12-24] MEDS ORDERED: ARIPiprazole 15 MG TAB PO SCH (09:00)
--- NOTE | 2020-12-24 09:58 | P.PN ---
Progress Note - Text Progress Note Date: 12/24/20 Interval history: Patient was seen lying in her bed this morning and was directable and agreeable to speak with fiction and nonfiction writer prose. Patient appeared to be timid initially with fiction and nonfiction writer prose however was attempting to cooperate. She has a poverty of content however had a logical thought process. She spoke about a other patient trying to get into her room and was requesting a room change. She states that she was able to sleep a bit better last night and claims that she does not have any more nightmares due to the prazosin. She states that her mood has been gradually improving and denies any anxiety today. She states that she's been going to some groups and try to participate.. At this time patient denies any suicidal or homicidal ideations intent or plan. Denies any visual hallucinations. She states that the voices have been gradually getting better and she only hears them when she is alone in her room. Patient denies any side effects from the medications and has been compliant with meds. Mental status exam: General Appearance: Patient appears to be stated age, has short black hair and a nose ring, is alert, directable, and attempting to be cooperative. Behavior: No agitated behavior. Patient is calm and directable. Fairly timid. Speech: Patient's speech is fluent and nonpressured. [place]. Mood/Affect: Mood is improving mildly, affect is congruent and constricted. Suicidality/Homicidality: Patient denies having any suicidal or homicidal ideation intent or plan. Perceptions: Patient denies any visual hallucinations. She admits to ongoing auditory hallucinations which have been improving. Though content/process: There is no evidence of any delusional thought content. Logical and denies any paranoia. Memory and concentration: AOX3, grossly intact for the purposes of this session Judgment and insight: improving mildly Assessment/Plan: Continue with current diagnosis. Patient continues to meet criteria for inpatient psychiatric admission for symptom stabilization and safety.Patient will be maintained on current psychotropic medication regimen. Abilify was increased to 15 mg for today and will be once again increased to 20 mg for tomorrow morning. Monitor for medication compliance and for any psychotropic medication side effects. Will continue to monitor ongoing response to treatment. Encouraged participation in milieu.
[2020-12-24] MEDS: ACETAMINOPHEN TAB 325 MG TAB PO PRN (20:10)
[2020-12-24] MEDS: MIRTAZAPINE 15 MG TAB PO SCH (20:51)
[2020-12-24] MEDS: PRAZOSIN 1 MG CAP PO SCH (20:52)
[2020-12-25] MEDS: LORATADINE 10 MG TAB PO SCH (08:35)
[2020-12-25] MEDS: busPIRone HCl 10 MG TAB PO SCH ×3 (08:35→22:06)
[2020-12-25 08:48] VITALS: BP 133/72; PULSE 123; RESP 16; TEMP 97.5
--- NOTE | 2020-12-25 12:05 | P.PN ---
Progress Note - Text Progress Note Date: 12/25/20 Interval history: Patient was seen wandering the hallways this morning and was directable and agreeable to speak with signwriter. Patient appeared to be more cooperative further today however was fairly concrete and superficial at times. She continues to have improvement in her thought process and was more logical today. She cleans that she was able to sleep better last night with her current medications. She is demonstrating improvement in her insight and judgment and is willing to continue on with medications and her Abilify was increased as morning. She claims that her anxiety is under better control with current medications. She admits improvement in her mood today. She spoke about potentially being discharged tomorrow and having a DBT group and also speaking with her therapist later on in the afternoon that she has an appointment set with her. She states that she's been going to some groups and try to participate. At this time patient denies any suicidal or homicidal ideations intent or plan. Denies any visual hallucinations. She states that the voices have been gradually getting better and claims that today she is no longer hearing them. Patient denies any side effects from the medications and has been compliant with meds. Mental status exam: General Appearance: Patient appears to be stated age, has short black hair and a nose ring, is alert, directable, and attempting to be cooperative. Behavior: No agitated behavior. Patient is calm and directable. More cooperative today Speech: Patient's speech is fluent and nonpressured. [place]. Mood/Affect: Mood is improving mildly, affect is congruent and constricted. Suicidality/Homicidality: Patient denies having any suicidal or homicidal ideation intent or plan. Perceptions: Patient denies any visual hallucinations. She admits to significant improvement in her auditory hallucinations. Though content/process: There is no evidence of any delusional thought content. Logical and denies any paranoia. Memory and concentration: AOX3, grossly intact for the purposes of this session Judgment and insight: improving mildly Assessment/Plan: Continue with current diagnosis. Patient continues to meet criteria for inpatient psychiatric admission for symptom stabilization and safety.Patient will be maintained on current psychotropic medication regimen. Abilify was increased to 20 mg for today. Monitor for medication compliance and for any psychotropic medication side effects. Will continue to monitor ongoing response to treatment. Encouraged participation in milieu. Patient claims that she has a DBT group that she can go to tomorrow at [facility] and also states that she has an appointment tomorrow afternoon with her therapist which she is hoping to go to. Prepare for possible discharge tomorrow.
[2020-12-25] MEDS: NICOTINE 14MG/24HR PATCH TRANSDERM SCH (12:31)
[2020-12-25] MEDS: PRAZOSIN 1 MG CAP PO SCH (22:06)
[2020-12-25] MEDS: MIRTAZAPINE 15 MG TAB PO SCH (22:06)
[2020-12-25] MEDS: LORazepam 1 MG TAB PO PRN (23:28)
[2020-12-26] MEDS: NICOTINE 14MG/24HR PATCH TRANSDERM SCH (08:42)
[2020-12-26] MEDS: busPIRone HCl 10 MG TAB PO SCH (08:43)
[2020-12-26] MEDS: LORATADINE 10 MG TAB PO SCH (08:43)
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
== END 2020-12-26 11:00 | disposition home or self-care (01) | DRG 885 ==
LOC: EC 13:53 → 3MHU 18:25
PROVIDERS: ADMIT Psychiatry & Neurology Psychiatry; ATTEND Psychiatry & Neurology Psychiatry
DX: F33.2 Major depressive disorder, recurrent severe without psychotic features (principal); R44.0 Auditory hallucinations; R45.851 Suicidal ideations; F60.3 Borderline personality disorder; Z20.822 Contact with and (suspected) exposure to COVID-19; F43.10 Post-traumatic stress disorder, unspecified; F12.10 Cannabis abuse, uncomplicated; G47.00 Insomnia, unspecified; I10 Essential (primary) hypertension; F17.200 Nicotine dependence, unspecified, uncomplicated; R45.87 Impulsiveness; Z62.810 Personal history of physical and sexual abuse in childhood; Z91.5 Personal history of self-harm; Z79.899 Other long term (current) drug therapy; Z91.011 Allergy to milk products
CPT/HCPCS: 36415; 80048; 80306; 81001; 81025; 82075; 85025; 87635; 99285

== ENCOUNTER → 2022-03-19 | Outpatient (CLI) | payer OTHER ==
--- NOTE | 2022-03-19 16:41 | MR ---
EXAMINATION TYPE: MR lumbar spine wo con DATE OF EXAM: 03/19/2022 COMPARISON: None HISTORY: Bi-lat leg pain/numbness since 2019 TECHNIQUE: Multiplanar, multisequence images of the lumbar spine were acquired without IV contrast. L1-L2: Normal disc appearance without desiccation. No herniation, protrusion or disc bulging. No ca nal stenosis is present. Foramina are patent bilaterally. L2-L3: Normal disc appearance without desiccation. No herniation, protrusion or disc bulging. No ca nal stenosis is present. Foramina are patent bilaterally. L3-L4: Normal disc appearance without desiccation. No herniation, protrusion or disc bulging. No ca nal stenosis is present. Foramina are patent bilaterally. L4-L5: Normal disc appearance without desiccation. No herniation, protrusion or disc bulging. No ca nal stenosis is present. Foramina are patent bilaterally. L5-S1: Normal disc appearance without desiccation. No herniation, protrusion or disc bulging. No ca nal stenosis is present. Foramina are patent bilaterally. Lumbar segments are intact. No paraspinal masses are identified. Conus medullaris has a normal appe arance. Suspect a transitional vertebral body at L5 IMPRESSION: Normal lumbar spine MRI as described.
== END | disposition home or self-care (01) ==
LOC: RADMRIMAIN 15:32
PROVIDERS: ATTEND Psychiatry & Neurology Neurology
DX: R20.0 Anesthesia of skin (principal); M79.604 Pain in right leg; M79.605 Pain in left leg
CPT/HCPCS: 72148

== ENCOUNTER 2024-05-04 13:02 | Emergency (ER) | payer OTHER ==
[2024-05-04 14:01] LABS: Basophils # (A) 0.1 k/uL (0-0.2); Basophils % (A) 1 %; Eosinophils # (A) 0.1 k/uL (0-0.7); Eosinophils % (A) 2 %; HCT 43.1 % (34.0-46.0); HGB 14.1 gm/dL (11.4-16.0); Lymphocytes # (A) 2.1 k/uL (1.0-4.8); Lymphocytes % (A) 32 %; MCH 30.5 pg (25.0-35.0); MCHC 32.6 g/dL (31.0-37.0); MCV 93.6 fL (80.0-100.0); Monocytes # (A) 0.5 k/uL (0-1.0); Monocytes % (A) 7 %; Neutrophils # (A) 3.7 k/uL (1.3-7.7); Neutrophils % (A) 56 %; Platelet Count 257 k/uL (150-450); RBC 4.61 m/uL (3.80-5.40); RDW 12.6 % (11.5-15.5); WBC 6.5 k/uL (3.8-10.6)
[2024-05-04 14:08] LABS: ALT 12 U/L (4-34); AST 20 U/L (14-36); African American GFR (CKD) >90 (>60 ml/min/1.73 sqM); Alkaline Phosphatase 46 U/L (38-126); Amylase 68 U/L (30-110); Anion Gap 5 mmol/L; Blood Urea Nitrogen 10 mg/dL (7-17); Calcium 9.2 mg/dL (8.4-10.2); Carbon Dioxide 27 mmol/L (22-30); Chloride 105 mmol/L (98-107); Glucose 77 mg/dL (74-99); Lipase 32 U/L (23-300); Non-African American GFR(CKD) >90 (>60 ml/min/1.73 sqM); Potassium 4.5 mmol/L (3.5-5.1); Sodium 137 mmol/L (137-145); Total Bilirubin 0.4 mg/dL (0.2-1.3)
--- NOTE | 2024-05-04 14:10 | ED ---
Abdominal Pain HPI - General Source: patient, RN notes reviewed Mode of arrival: ambulatory Limitations: no limitations <Shanice Levine - Last Filed: 05/04/24 14:08> <Leonila Ramires - Last Filed: 05/04/24 19:10> - General Chief Complaint: Abdominal Pain Stated Complaint: Abd pain,Diarrhea Time Seen by Provider: 05/04/24 14:08 - History of Present Illness Initial Comments: Quick Note: This is a 23-year-old female who presents to the emergency department for abdominal pain. States that it started last month. This started shortly after eating food that had been sitting out for a while and states that she is concerned about an intestinal parasite. Pain is in her upper abdomen. Also reports problems with intermittent diarrhea and nausea. Denies any fevers or chills. She initially went to urgent care and was advised to come to the emergency department for evaluation. (Shanice Levine) This is a 23-year-old female presents emergency department chief complaint of use intermittent abdominal pain over the past 3 weeks. States that the abdominal pain started shortly after she ate food that was sitting up for a while is concerned that she may have a stomach bug. Currently patient states that the pain is in her upper abdomen and left lower quadrant with intermittent diarrhea and nausea. She denies dyschezia, hematochezia, dark or tarry stools. Denies hematemesis. Denies dysuria, hematuria, recent frequency or urgency. Denies previous surgeries on her abdomen. (Leonila Ramires) - Related Data Previous Rx's Medication Instructions Recorded ARIPiprazole [Abilify] 20 mg PO DAILY 30 Days tab 12/26/20 Loratadine [Claritin] 10 mg PO DAILY 30 Days tab 12/26/20 Mirtazapine [Remeron] 15 mg PO HS 30 Days tab 12/26/20 Nicotine 14Mg/24Hr Patch [Habitrol] 1 patch TRANSDERM DAILY 30 Days 12/26/20 patch Prazosin [Minipress] 2 mg PO HS 30 Days cap 12/26/20 busPIRone HCl [Buspar] 20 mg PO TID 30 Days tab 12/26/20 Allergies Allergy/AdvReac Type Severity Reaction Status Date / Time Milk Containing Products AdvReac flatulence Verified 12/23/20 12:01 (Dairy) [Dairy] Review of Systems ROS Other: All systems not noted in ROS Statement are negative. <Shanice Levine - Last Filed: 05/04/24 14:08> ROS Other: All systems not noted in ROS Statement are negative. <Leonila Ramires - Last Filed: 05/04/24 19:10> ROS Statement: Those systems with pertinent positive or pertinent negative responses have been documented in the HPI. Past Medical History Past Medical History: Hypertension, Renal Disease Additional Past Medical History / Comment(s): Feels her blood pressure is elevated since age 11 or 12, never formally diagnosed with hypertension. bolemia anorexia. renal failure History of Any Multi-Drug Resistant Organisms: None Reported Past Surgical History: No Surgical Hx Reported Additional Past Surgical History / Comment(s): dialysis tube inserted in the right thigh Past Anesthesia/Blood Transfusion Reactions: No Reported Reaction Past Psychological History: Bipolar, Depression Smoking Status: Vaper Past Alcohol Use History: Heavy Past Drug Use History: Marijuana - Past Family History Mother Family Medical History: No Reported History Additional Family Medical History / Comment(s): history of heart disease and family in multiple family members Father Family Medical History: No Reported History <Shanice Levine - Last Filed: 05/04/24 14:08> General Exam Limitations: no limitations <Shanice Levine - Last Filed: 05/04/24 14:08> General appearance: alert, in no apparent distress Head exam: Present: atraumatic, normocephalic, normal inspection Eye exam: Present: normal appearance, PERRL, EOMI. Absent: scleral icterus, conjunctival injection, periorbital swelling ENT exam: Present: normal exam, mucous membranes moist Neck exam: Present: normal inspection. Absent: tenderness, meningismus, lymphadenopathy Respiratory exam: Present: normal lung sounds bilaterally. Absent: respiratory distress, wheezes, rales, rhonchi, stridor Cardiovascular Exam: Present: regular rate, normal rhythm, normal heart sounds. Absent: systolic murmur, diastolic murmur, rubs, gallop, clicks GI/Abdominal exam: Present: soft, tenderness (epigastric, burning), normal bowel sounds. Absent: distended, guarding, rebound, rigid Extremities exam: Present: normal inspection, full ROM, normal capillary refill. Absent: tenderness, pedal edema, joint swelling, calf tenderness Back exam: Present: normal inspection <Leonila Ramires - Last Filed: 05/04/24 19:10> - General Exam Comments Initial Comments: Visual Physical Exam Vital signs reviewed General: Well-appearing, nontoxic, no acute distress. Head: Normocephalic, atraumatic Eyes: PERRLA, EOMI ENT: Airway patent Chest: Nonlabored breathing Skin: No visual rash, normal skin tone Neuro: Alert and oriented 3 Musculoskeletal: No gross abnormalities (Shanice Levine) Course Vital Signs 05/04/24 05/04/24 13:28 17:19 Temperature 98.3 F 98.4 F Pulse Rate 82 68 Respiratory 16 18 Rate Blood Pressure 117/77 124/80 O2 Sat by Pulse 99 100 Oximetry Medical Decision Making - Lab Data Result diagrams: 05/04/24 13:33 <Shanice Levine - Last Filed: 05/04/24 14:08> - Lab Data Result diagrams: 05/04/24 13:33 05/04/24 13:33 <Leonila Ramires - Last Filed: 05/04/24 19:10> - Medical Decision Making I performed the QuickNote portion of this chart. Signed Shanice Levine PA-C. (Shanice Levine) Was pt. sent in by a medical professional or institution ([facility], [employer]CH CORRECTION CONSULTANT, urgent care, hospital, or [facility]...) When possible be specific @ -Was evaluated by urgent care this morning was advised to report to the emergency department for further evaluation due to ongoing abdominal pain over the past 3 weeks. Did you speak to anyone other than the patient for history (EMS, parent, family, police, friend...)? What history was obtained from this source @ -No Did you review nursing and triage notes (agree or disagree)? Why? @ -I reviewed and agree with nursing and triage notes Were old charts reviewed (outside hosp., previous admission, EMS record, old EKG, old radiological studies, urgent care reports/EKG's, [facility] records)? Report findings @ -No old charts were reviewed Differential Diagnosis (chest pain, altered mental status, abdominal pain women, abdominal pain men, vaginal bleeding, weakness, fever, dyspnea, syncope, headache, dizziness, GI bleed, back pain, seizure, CVA, palpatations, mental health, musculoskeletal)? @ -Differential Abdominal Pain Women: Appendicitis, Cholecystitis, diverticulosis, ischemic bowel, pancreatitis, hepatitis, UTI, gastroenteritis, AAA, incarcerated hernia, bowel obstruction, constipation, inflammatory bowel, hepatitis, peptic ulcer disease, splenic infarction, perforated viscus, vulvitis, ovarian torsion, PID, kidney stone, placenta abruption, this is not meant to be an all-inclusive list EKG interpreted by me (3pts min.). @ -None X-rays interpreted by me (1pt min.). @ -xray KUB no acute intra-abdominal process noted CT interpreted by me (1pt min.). @ -None done U/S interpreted by me (1pt. min.). @ -None done What testing was considered but not performed or refused? (CT, X-rays, U/S, labs)? Why? @ -None What meds were considered but not given or refused? Why? @ -None Did you discuss the management of the patient with other professionals (professionals i.e. , PA, SPEECH CORRECTION CONSULTANT, lab, RT, psych nurse, perinatal social worker, spear fisher, teacher, morale officer, case checker)? Give summary @ -No Was smoking cessation discussed for >3mins.? @ -No Was critical care preformed (if so, how long)? @ -No Were there social determinants of health that impacted care today? How? (Homelessness, low income, unemployed, alcoholism, drug addiction, transportation, low edu. Level, literacy, decrease access to med. care, half-way, rehab)? @ -No Was there de-escalation of care discussed even if they declined (Discuss DNR or withdrawal of care, Hospice)? DNR status @ -No What co-morbidities impacted this encounter? (DM, HTN, Smoking, COPD, CAD, Cancer, CVA, ARF, Chemo, Hep., AIDS, mental health diagnosis, sleep apnea, morbid obesity)? @ -None Was patient admitted / discharged? Hospital course, mention meds given and route, prescriptions, significant lab abnormalities, going to OR and other pertinent info. @ Discharge. 23-year-old female with intermittent burning abdominal pain over the past 3 weeks. Patient was originally evaluated as a quick note where labs ordered addition to urinalysis and x-ray of the abdomen. On my evaluation of the patient she is expressing mild abdominal pain in the epigastric region with no signs of rebound tenderness. BC, CMP and urinalysis unremarkable, hCG negative. X-ray of the abdomen no acute process identified. Discussed the patient's symptoms may be related to viral gastroenteritis. Recommend that patient continues without any diet consisting of bananas, rice, applesauce, toast and keep a food diary to determine if she may have a food intolerance. Patient was offered prescription for Zofran but she has declined. Strict return parameters discussed with the patient she is verbalized understanding. Recommend that she follows up with her primary care provider in the next week for further evaluation. Case discussed with Dr. Campuzano Undiagnosed new problem with uncertain prognosis? @ -No Drug Therapy requiring intensive monitoring for toxicity (Heparin, Nitro, Insulin, Cardizem)? @ -No Were any procedures done? @ -No Diagnosis/symptom? @ -Abdominal pain Acute, or Chronic, or Acute on Chronic? @ -Acute Uncomplicated (without systemic symptoms) or Complicated (systemic symptoms)? @ -Uncomplicated Side effects of treatment? @ -No Exacerbation, Progression, or Severe Exacerbation? @ -No Poses a threat to life or bodily function? How? (Chest pain, USA, OR, pneumonia, PE, COPD, DKA, ARF, appy, cholecystitis, CVA, Diverticulitis, Homicidal, Suicidal, threat to staff... and all critical care pts) @ -No (Leonila Ramires) - Lab Data Lab Results 05/04/24 05/04/24 05/04/24 Range/Units 13:33 13:33 14:30 WBC 6.5 (3.8-10.6) k/uL RBC 4.61 (3.80-5.40) m/uL Hgb 14.1 (11.4-16.0) gm/dL Hct 43.1 (34.0-46.0) % MCV 93.6 (80.0-100.0) fL MCH 30.5 (25.0-35.0) pg MCHC 32.6 (31.0-37.0) g/dL RDW 12.6 (11.5-15.5) % Plt Count 257 (150-450) k/uL MPV 7.0 Neutrophils % 56 % Lymphocytes % 32 % Monocytes % 7 % Eosinophils % 2 % Basophils % 1 % Neutrophils # 3.7 (1.3-7.7) k/uL Lymphocytes # 2.1 (1.0-4.8) k/uL Monocytes # 0.5 (0-1.0) k/uL Eosinophils # 0.1 (0-0.7) k/uL Basophils # 0.1 (0-0.2) k/uL Sodium 137 (137-145) mmol/L Potassium 4.5 (3.5-5.1) mmol/L Chloride 105 (98-107) mmol/L Carbon Dioxide 27 (22-30) mmol/L Anion Gap 5 mmol/L BUN 10 (7-17) mg/dL Creatinine 0.64 (0.52-1.04) mg/dL Est GFR (CKD-EPI)AfAm >90 (>60 ml/min/1.73 sqM) Est GFR (CKD-EPI)NonAf >90 (>60 ml/min/1.73 sqM) Glucose 77 (74-99) mg/dL Calcium 9.2 (8.4-10.2) mg/dL Total Bilirubin 0.4 (0.2-1.3) mg/dL AST 20 (14-36) U/L ALT 12 (4-34) U/L Alkaline Phosphatase 46 (38-126) U/L Total Protein 7.0 (6.3-8.2) g/dL Albumin 4.0 (3.5-5.0) g/dL Amylase 68 (30-110) U/L Lipase 32 (23-300) U/L Urine Color Colorless Urine Appearance Clear (Clear) Urine pH 7.0 (5.0-8.0) Ur Specific [place] 1.014 (1.001-1.035) Urine Protein Negative (Negative) Urine Glucose (UA) Negative (Negative) Urine Ketones Negative (Negative) Urine Blood Negative (Negative) Urine Nitrite Negative (Negative) Urine Bilirubin Negative (Negative) Urine Urobilinogen <2.0 (<2.0) mg/dL Ur Leukocyte Esterase Negative (Negative) Urine HCG, Qual (Not Detectd) 05/04/24 Range/Units 14:30 WBC (3.8-10.6) k/uL RBC (3.80-5.40) m/uL Hgb (11.4-16.0) gm/dL Hct (34.0-46.0) % MCV (80.0-100.0) fL MCH (25.0-35.0) pg MCHC (31.0-37.0) g/dL RDW (11.5-15.5) % Plt Count (150-450) k/uL MPV Neutrophils % % Lymphocytes % % Monocytes % % Eosinophils % % Basophils % % Neutrophils # (1.3-7.7) k/uL Lymphocytes # (1.0-4.8) k/uL Monocytes # (0-1.0) k/uL Eosinophils # (0-0.7) k/uL Basophils # (0-0.2) k/uL Sodium (137-145) mmol/L Potassium (3.5-5.1) mmol/L Chloride (98-107) mmol/L Carbon Dioxide (22-30) mmol/L Anion Gap mmol/L BUN (7-17) mg/dL Creatinine (0.52-1.04) mg/dL Est GFR (CKD-EPI)AfAm (>60 ml/min/1.73 sqM) Est GFR (CKD-EPI)NonAf (>60 ml/min/1.73 sqM) Glucose (74-99) mg/dL Calcium (8.4-10.2) mg/dL Total Bilirubin (0.2-1.3) mg/dL AST (14-36) U/L ALT (4-34) U/L Alkaline Phosphatase (38-126) U/L Total Protein (6.3-8.2) g/dL Albumin (3.5-5.0) g/dL Amylase (30-110) U/L Lipase (23-300) U/L Urine Color Urine Appearance (Clear) Urine pH (5.0-8.0) Ur Specific [place] (1.001-1.035) Urine Protein (Negative) Urine Glucose (UA) (Negative) Urine Ketones (Negative) Urine Blood (Negative) Urine Nitrite (Negative) Urine Bilirubin (Negative) Urine Urobilinogen (<2.0) mg/dL Ur Leukocyte Esterase (Negative) Urine HCG, Qual Not Detected (Not Detectd) Disposition <Shanice Levine - Last Filed: 05/04/24 14:08> Is patient prescribed a controlled substance at d/c from ED?: No Time of Disposition: 17:04 <Leonila Ramires - Last Filed: 05/04/24 19:10> Clinical Impression: Abdominal pain, Diarrhea Disposition: HOME SELF-CARE Condition: Good Instructions (If sedation given, give patient instructions): Abdominal Pain (ED) Additional Instructions: Return to the emergency department if your symptoms worsen or not improve. Referrals: None,Stated [Primary Care Provider] - 1-2 days
[2024-05-04 14:44] LABS: Appearance,Urine Clear (Clear); Bilirubin,Urine Negative (Negative); Blood,Urine Negative (Negative); Color,Urine Colorless; Glucose,Urine (UA) Negative (Negative); Ketones,Urine Negative (Negative); Leukocyte Esterase,Urine Negative (Negative); Nitrite,Urine Negative (Negative); Protein,Urine Negative (Negative); Specific Gravity,Urine 1.014 (1.001-1.035); Urobilinogen,Urine <2.0 mg/dL (<2.0)
[2024-05-04] MEDS: SODIUM CHLORIDE 0.9% 500 ML 500 ML IV STA (15:08)
[2024-05-04] MEDS: PANTOPRAZOLE 40 MG/10 ML VIAL IVP STA (15:08)
--- NOTE | 2024-05-04 16:41 | XR ---
EXAMINATION TYPE: XR KUB DATE OF EXAM: 05/04/2024 COMPARISON: 12/15/2019 INDICATION: pain TECHNIQUE: Single view abdomen FINDINGS: There is a normal bowel gas pattern. Psoas margins are normal. No organomegaly is present. IMPRESSION: 1. Unremarkable Abdomen
[2024-05-04 17:20] VITALS: BP 124/80; PULSE 68; RESP 18; TEMP 98.4
== END 2024-05-04 17:20 | disposition home or self-care (01) ==
LOC: EC 13:02
DX: R10.32 Left lower quadrant pain (principal); R19.7 Diarrhea, unspecified; F17.290 Nicotine dependence, other tobacco product, uncomplicated; Z91.011 Allergy to milk products
CPT/HCPCS: 36415; 80053; 82150; 83690; 85025; 81003; 81025; 74018; 99284; 96374; 96361 ×2; J2470

== ENCOUNTER 2025-02-27 21:29 | Emergency (ER) | payer OTHER ==
--- NOTE | 2025-02-27 21:55 | ED ---
Dizziness HPI - General Chief Complaint: Dizziness Stated Complaint: Dizzy/NV/Chest Pain Time Seen by Provider: 02/27/25 21:53 Source: patient, RN notes reviewed, old records reviewed Mode of arrival: ambulatory Limitations: no limitations - History of Present Illness Initial Comments: This is a 24 female to the ER for evaluation she does have some history of psychiatric illness but presents today for evaluation regards to dizziness lightheadedness not feeling well especially throughout her workday. Patient was hanging out with a friend last night became to feel very fatigued sent a friend home and thought she may have been given some sort of intoxicant. Patient has no other complaints this is just a suspicion she has not contacted PD does not want to without any significant concerning findings. Patient was concern for possible drugging MD Complaint: dizziness, lightheadedness -: hour(s) Timing: gradual onset, intermittent Description: lightheadedness History of Same: No History of Trauma: No Severity: mild Worsens With: nothing Associated Symptoms: denies other symptoms - Related Data Previous Rx's Medication Instructions Recorded ARIPiprazole [Abilify] 20 mg PO DAILY 30 Days tab 12/26/20 Loratadine [Claritin] 10 mg PO DAILY 30 Days tab 12/26/20 Mirtazapine [Remeron] 15 mg PO HS 30 Days tab 12/26/20 Nicotine 14Mg/24Hr Patch [Habitrol] 1 patch TRANSDERM DAILY 30 Days 12/26/20 patch Prazosin [Minipress] 2 mg PO HS 30 Days cap 12/26/20 busPIRone HCl [Buspar] 20 mg PO TID 30 Days tab 12/26/20 Allergies Allergy/AdvReac Type Severity Reaction Status Date / Time Milk Containing Products AdvReac flatulence Verified 02/27/25 21:37 (Dairy) [Dairy] Review of Systems ROS Statement: Those systems with pertinent positive or pertinent negative responses have been documented in the HPI. ROS Other: All systems not noted in ROS Statement are negative. Past Medical History Past Medical History: Hypertension, Renal Disease Additional Past Medical History / Comment(s): Feels her blood pressure is elevated since age 11 or 12, never formally diagnosed with hypertension. bolemia anorexia. renal failure History of Any Multi-Drug Resistant Organisms: None Reported Past Surgical History: No Surgical Hx Reported Additional Past Surgical History / Comment(s): dialysis tube inserted in the ri ght thigh Past Anesthesia/Blood Transfusion Reactions: No Reported Reaction Past Psychological History: Bipolar, Depression Smoking Status: Vaper Past Alcohol Use History: Heavy Past Drug Use History: Marijuana - Past Family History Mother Family Medical History: No Reported History Additional Family Medical History / Comment(s): history of heart disease and family in multiple family members Father Family Medical History: No Reported History General Exam Limitations: no limitations General appearance: alert, in no apparent distress Head exam: Present: atraumatic, normocephalic, normal inspection Eye exam: Present: normal appearance, PERRL, EOMI. Absent: scleral icterus, conjunctival injection, periorbital swelling ENT exam: Present: normal exam, mucous membranes moist Neck exam: Present: normal inspection. Absent: tenderness, meningismus, lymphadenopathy Respiratory exam: Present: normal lung sounds bilaterally. Absent: respiratory distress, wheezes, rales, rhonchi, stridor Cardiovascular Exam: Present: regular rate, normal rhythm, normal heart sounds. Absent: systolic murmur, diastolic murmur, rubs, gallop, clicks GI/Abdominal exam: Present: soft, normal bowel sounds. Absent: distended, tenderness, guarding, rebound, rigid Extremities exam: Present: normal inspection, full ROM, normal capillary refill. Absent: tenderness, pedal edema, joint swelling, calf tenderness Back exam: Present: normal inspection Neurological exam: Present: alert, oriented X3, CN II-XII intact Psychiatric exam: Present: normal affect, normal mood Skin exam: Present: warm, dry, intact, normal color. Absent: rash Course Vital Signs 02/27/25 21:34 Temperature 98.2 F Pulse Rate 106 H Respiratory 18 Rate Blood Pressure 153/102 O2 Sat by Pulse 99 Oximetry - Reevaluation(s) Reevaluation #1: 02/28/25 00:06 Medical records reviewed Reevaluation #2: 02/28/25 00:06 Symptoms improved Reevaluation #3: 02/28/25 00:07 Patient informed of results and questions answered Reevaluation #4: Was pt. sent in by a medical professional or institution (, PA, RFID ENGINEER, urgent care, hospital, or senior living...) When possible be specific @ -no Did you speak to anyone other than the patient for history (EMS, parent, family, police, friend...)? What history was obtained from this source @ -no Did you review nursing and triage notes (agree or disagree)? Why? @ -agree Are old charts reviewed (outside hosp., previous admission, EMS record, old EKG, old radiological studies, urgent care reports/EKG's, senior living records)? Report findings @ -yes Differential Diagnosis (chest pain, altered mental status, abdominal pain women, abdominal pain men, vaginal bleeding, weakness, fever, dyspnea, syncope, headache, dizziness, GI bleed, back pain, seizure, CVA, palpatations, mental health, musculoskeletal)? @ -prior EKG interpreted by me (3pts min.). @ -yes X-rays interpreted by me (1pt min.). @ -yes negative for acute disease CT interpreted by me (1pt min.). @ -no U/S interpreted by me (1pt. min.). @ -no What testing was considered but not performed or refused? (CT, X-rays, U/S, labs)? Why? @ -none What meds were considered but not given or refused? Why? @ -none Did you discuss the management of the patient with other professionals (professionals i.e. , PA, RFID ENGINEER, lab, RT, psych nurse, social service worker, corporate relations manager, teacher, forest fire management officer, case work aide)? Give summary @ -no Was smoking cessation discussed for >3mins.? @ -no Was critical care preformed (if so, how long)? @ -no Were there social determinants of health that impacted care today? How? (Homelessness, low income, unemployed, alcoholism, drug addiction, transportation, low edu. Level, literacy, decrease access to med. care, residential, rehab)? @ -none Was there de-escalation of care discussed even if they declined (Discuss DNR or withdrawal of care, Hospice)? DNR status @ -no What co-morbidities impacted this encounter? (DM, HTN, Smoking, COPD, CAD, Cancer, CVA, ARF, Chemo, Hep., AIDS, mental health diagnosis, sleep apnea, morbid obesity)? @ -none Was patient admitted / discharged? Hospital course, mention meds given and route, prescriptions, significant lab abnormalities, going to OR and other pertinent info. @ - Undiagnosed new problem with uncertain prognosis? @ -no Drug Therapy requiring intensive monitoring for toxicity (Heparin, Nitro, Insulin, Cardizem)? @ -no Were any procedures done? @ -no Diagnosis/symptom? @ - Acute, or Chronic, or Acute on Chronic? @ -Acute Uncomplicated (without systemic symptoms) or Complicated (systemic symptoms)? @ -Complicated Side effects of treatment? @ -no Exacerbation, Progression, or Severe Exacerbation? @ -exacerbation Poses a threat to life or bodily function? How? (Chest pain, [place], [place], pneumonia, PE, COPD, DKA, ARF, appy, cholecystitis, CVA, Diverticulitis, Homicidal, Suicidal, threat to staff... and all critical care pts) @ -yes Reevaluation #5: Differential Dizziness: Benign paroxysmal positional Vertigo, Meniere's disease, otitis media, acoustic neuroma, vertebrobasilar insufficiency, cerebellar stroke, encephalitis, hypovolemic, arrhythmia, coronary artery syndrome, anemia, this is not meant to be an all-inclusive list EKG Findings - EKG Comments: EKG Findings:: EKG is sinus 75 [place] 158 QRS 95 QTc 3 9 - EKG Results: EKG: interpreted by ABRAHAM Medical Decision Making - Medical Decision Making 24 female symptoms resolved at this time patient symptoms are improved informed of results, patient feels good for discharge home - Lab Data Result diagrams: 02/27/25 22:46 02/27/25 22:46 Lab Results 02/27/25 02/27/25 02/27/25 Range/Units 22:46 22:46 22:46 WBC 11.00 H (4.50-10.00) 10*3/uL RBC 4.88 (4.10-5.20) 10*6/uL Hgb 15.1 H (12.0-15.0) g/dL Hct 43.3 (37.2-46.3) % MCV 88.7 (80.0-97.0) fL MCH 30.9 (27.0-32.0) pg MCHC 34.9 (32.0-37.0) g/dL Plt Count 281 (140-440) 10*3/uL MPV 9.4 L (9.5-12.2) fL Immature Gran % (Auto) 0.4 % Neutrophils % 66.0 % Lymphocytes % 23.5 % Monocytes % 9.3 % Eosinophils % 0.3 % Basophils % 0.5 % Immature Gran # 0.04 (0.00-0.04) 10*3/uL Neutrophils # 7.26 (1.80-7.70) 10*3/uL Lymphocytes # 2.59 (0.90-5.00) 10*3/uL Monocytes # 1.02 H (0.20-1.00) 10*3/uL Eosinophils # 0.03 L (0.04-0.35) 10*3/uL Basophils # 0.06 (0.00-0.10) 10*3/uL Sodium 138 (137-145) mmol/L Potassium 3.9 (3.5-5.1) mmol/L Chloride 101 (98-107) mmol/L Carbon Dioxide 21 L (22-30) mmol/L Anion Gap 16 mmol/L BUN 10 (7-17) mg/dL Creatinine 0.61 (0.52-1.04) mg/dL Est GFR (CKD-EPI)AfAm >90 (>60 ml/min/1.73 sqM) Est GFR (CKD-EPI)NonAf >90 (>60 ml/min/1.73 sqM) Glucose 76 (74-99) mg/dL Plasma Lactic Acid Navin (0.7-2.0) mmol/L Calcium 10.1 (8.4-10.2) mg/dL Phosphorus 3.4 (2.5-4.5) mg/dL Magnesium 1.8 (1.6-2.3) mg/dL Total Bilirubin 1.3 (0.2-1.3) mg/dL AST 23 (14-36) U/L ALT 23 (4-34) U/L Alkaline Phosphatase 58 (38-126) U/L Troponin I (0.000-0.034) ng/mL Total Protein 8.2 (6.3-8.2) g/dL Albumin 5.1 H (3.5-5.0) g/dL Lipase 24 (23-300) U/L Urine Color Yellow Urine Appearance Cloudy H (Clear) Urine pH 6.0 (5.0-8.0) Ur Specific [place] 1.030 (1.001-1.035) Urine Protein Trace H (Negative) Urine Glucose (UA) Negative (Negative) Urine Ketones 4+ H (Negative) Urine Blood Negative (Negative) Urine Nitrite Negative (Negative) Urine Bilirubin 1+ H (Negative) Urine Urobilinogen 6.0 (<2.0) mg/dL Ur Leukocyte Esterase Trace H (Negative) Urine RBC 3 (0-5) /hpf Urine WBC 3 (0-5) /hpf Ur Squamous Epith Cells 9 H (0-4) /hpf Amorphous Sediment Rare H (None) /hpf Urine Bacteria Occasional H (None) /hpf Urine Mucus Many H (None) /hpf Urine HCG, Qual (Not Detectd) Urine Opiates Screen (NotDetected) Ur Oxycodone Screen (NotDetected) Urine Methadone Screen (NotDetected) Ur Barbiturates Screen (NotDetected) U Tricyclic Antidepress (NotDetected) Ur Phencyclidine Scrn (NotDetected) Ur Amphetamines Screen (NotDetected) U Methamphetamines Scrn (NotDetected) U Benzodiazepines Scrn (NotDetected) Urine Cocaine Screen (NotDetected) U Marijuana (THC) Screen (NotDetected) Serum Alcohol <10 mg/dL 02/27/25 02/27/25 02/27/25 Range/Units 22:46 22:46 22:46 WBC (4.50-10.00) 10*3/uL RBC (4.10-5.20) 10*6/uL Hgb (12.0-15.0) g/dL Hct (37.2-46.3) % MCV (80.0-97.0) fL MCH (27.0-32.0) pg MCHC (32.0-37.0) g/dL Plt Count (140-440) 10*3/uL MPV (9.5-12.2) fL Immature Gran % (Auto) % Neutrophils % % Lymphocytes % % Monocytes % % Eosinophils % % Basophils % % Immature Gran # (0.00-0.04) 10*3/uL Neutrophils # (1.80-7.70) 10*3/uL Lymphocytes # (0.90-5.00) 10*3/uL Monocytes # (0.20-1.00) 10*3/uL Eosinophils # (0.04-0.35) 10*3/uL Basophils # (0.00-0.10) 10*3/uL Sodium (137-145) mmol/L Potassium (3.5-5.1) mmol/L Chloride (98-107) mmol/L Carbon Dioxide (22-30) mmol/L Anion Gap mmol/L BUN (7-17) mg/dL Creatinine (0.52-1.04) mg/dL Est GFR (CKD-EPI)AfAm (>60 ml/min/1.73 sqM) Est GFR (CKD-EPI)NonAf (>60 ml/min/1.73 sqM) Glucose (74-99) mg/dL Plasma Lactic Acid Navin 1.0 (0.7-2.0) mmol/L Calcium (8.4-10.2) mg/dL Phosphorus (2.5-4.5) mg/dL Magnesium (1.6-2.3) mg/dL Total Bilirubin (0.2-1.3) mg/dL AST (14-36) U/L ALT (4-34) U/L Alkaline Phosphatase (38-126) U/L Troponin I <0.012 (0.000-0.034) ng/mL Total Protein (6.3-8.2) g/dL Albumin (3.5-5.0) g/dL Lipase (23-300) U/L Urine Color Urine Appearance (Clear) Urine pH (5.0-8.0) Ur Specific [place] (1.001-1.035) Urine Protein (Negative) Urine Glucose (UA) (Negative) Urine Ketones (Negative) Urine Blood (Negative) Urine Nitrite (Negative) Urine Bilirubin (Negative) Urine Urobilinogen (<2.0) mg/dL Ur Leukocyte Esterase (Negative) Urine RBC (0-5) /hpf Urine WBC (0-5) /hpf Ur Squamous Epith Cells (0-4) /hpf Amorphous Sediment (None) /hpf Urine Bacteria (None) /hpf Urine Mucus (None) /hpf Urine HCG, Qual (Not Detectd) Urine Opiates Screen Not Detected (NotDetected) Ur Oxycodone Screen Not Detected (NotDetected) Urine Methadone Screen Not Detected (NotDetected) Ur Barbiturates Screen Not Detected (NotDetected) U Tricyclic Antidepress Not Detected (NotDetected) Ur Phencyclidine Scrn Not Detected (NotDetected) Ur Amphetamines Screen Not Detected (NotDetected) U Methamphetamines Scrn Not Detected (NotDetected) U Benzodiazepines Scrn Not Detected (NotDetected) Urine Cocaine Screen Not Detected (NotDetected) U Marijuana (THC) Screen Detected H (NotDetected) Serum Alcohol mg/dL 02/27/25 Range/Units 22:46 WBC (4.50-10.00) 10*3/uL RBC (4.10-5.20) 10*6/uL Hgb (12.0-15.0) g/dL Hct (37.2-46.3) % MCV (80.0-97.0) fL MCH (27.0-32.0) pg MCHC (32.0-37.0) g/dL Plt Count (140-440) 10*3/uL MPV (9.5-12.2) fL Immature Gran % (Auto) % Neutrophils % % Lymphocytes % % Monocytes % % Eosinophils % % Basophils % % Immature Gran # (0.00-0.04) 10*3/uL Neutrophils # (1.80-7.70) 10*3/uL Lymphocytes # (0.90-5.00) 10*3/uL Monocytes # (0.20-1.00) 10*3/uL Eosinophils # (0.04-0.35) 10*3/uL Basophils # (0.00-0.10) 10*3/uL Sodium (137-145) mmol/L Potassium (3.5-5.1) mmol/L Chloride (98-107) mmol/L Carbon Dioxide (22-30) mmol/L Anion Gap mmol/L BUN (7-17) mg/dL Creatinine (0.52-1.04) mg/dL Est GFR (CKD-EPI)AfAm (>60 ml/min/1.73 sqM) Est GFR (CKD-EPI)NonAf (>60 ml/min/1.73 sqM) Glucose (74-99) mg/dL Plasma Lactic Acid Navin (0.7-2.0) mmol/L Calcium (8.4-10.2) mg/dL Phosphorus (2.5-4.5) mg/dL Magnesium (1.6-2.3) mg/dL Total Bilirubin (0.2-1.3) mg/dL AST (14-36) U/L ALT (4-34) U/L Alkaline Phosphatase (38-126) U/L Troponin I (0.000-0.034) ng/mL Total Protein (6.3-8.2) g/dL Albumin (3.5-5.0) g/dL Lipase (23-300) U/L Urine Color Urine Appearance (Clear) Urine pH (5.0-8.0) Ur Specific [place] (1.001-1.035) Urine Protein (Negative) Urine Glucose (UA) (Negative) Urine Ketones (Negative) Urine Blood (Negative) Urine Nitrite (Negative) Urine Bilirubin (Negative) Urine Urobilinogen (<2.0) mg/dL Ur Leukocyte Esterase (Negative) Urine RBC (0-5) /hpf Urine WBC (0-5) /hpf Ur Squamous Epith Cells (0-4) /hpf Amorphous Sediment (None) /hpf Urine Bacteria (None) /hpf Urine Mucus (None) /hpf Urine HCG, Qual Not Detected (Not Detectd) Urine Opiates Screen (NotDetected) Ur Oxycodone Screen (NotDetected) Urine Methadone Screen (NotDetected) Ur Barbiturates Screen (NotDetected) U Tricyclic Antidepress (NotDetected) Ur Phencyclidine Scrn (NotDetected) Ur Amphetamines Screen (NotDetected) U Methamphetamines Scrn (NotDetected) U Benzodiazepines Scrn (NotDetected) Urine Cocaine Screen (NotDetected) U Marijuana (THC) Screen (NotDetected) Serum Alcohol mg/dL Disposition Clinical Impression: Dizziness Disposition: HOME SELF-CARE Condition: Fair Instructions (If sedation given, give patient instructions): Dizziness (ED) Is patient prescribed a controlled substance at d/c from ED?: No Referrals: None,Stated [Primary Care Provider] - 1-2 days Time of Disposition: 23:55
[2025-02-27] MEDS ORDERED: SODIUM CHLORIDE 0.9% 1,000 ML IV SCH (22:00)
[2025-02-27] MEDS: ONDANSETRON 4 MG/2 ML VIAL IVP STA (23:03)
[2025-02-27] MEDS: SODIUM CHLORIDE 0.9% 1,000 ML IV ONE (23:04)
[2025-02-27 23:26] LABS: Basophils # (A) 0.06 10*3/uL (0.00-0.10); Basophils % (A) 0.5 %; Eosinophils # (A) 0.03 10*3/uL (0.04-0.35); Eosinophils % (A) 0.3 %; HCT 43.3 % (37.2-46.3); HGB 15.1 g/dL (12.0-15.0); Lymphocytes # (A) 2.59 10*3/uL (0.90-5.00); Lymphocytes % (A) 23.5 %; MCH 30.9 pg (27.0-32.0); MCHC 34.9 g/dL (32.0-37.0); MCV 88.7 fL (80.0-97.0); Mean Platelet Volume 9.4 fL (9.5-12.2); Monocytes # (A) 1.02 10*3/uL (0.20-1.00); Monocytes % (A) 9.3 %; Neutrophils # (A) 7.26 10*3/uL (1.80-7.70); Platelet Count 281 10*3/uL (140-440); RBC 4.88 10*6/uL (4.10-5.20); RDW 12.4 % (11.5-14.5)
[2025-02-27 23:34] LABS: Amorphous Sediment,Urine Rare /hpf; Appearance,Urine Cloudy (Clear); Bacteria,Urine Occasional /hpf; Bilirubin,Urine 1+ (Negative); Blood,Urine Negative (Negative); Color,Urine Yellow; Glucose,Urine (UA) Negative (Negative); Ketones,Urine 4+ (Negative); Leukocyte Esterase,Urine Trace (Negative); Mucus,Urine Many /hpf; Nitrite,Urine Negative (Negative); Protein,Urine Trace (Negative); RBC,Urine 3 /hpf (0-5); Squamous Epithelial Cell,Urine 9 /hpf (0-4); WBC,Urine 3 /hpf (0-5)
[2025-02-27 23:39] LABS: ALT 23 U/L (4-34); AST 23 U/L (14-36); African American GFR (CKD) >90 (>60 ml/min/1.73 sqM); Albumin 5.1 g/dL (3.5-5.0); Alcohol <10 mg/dL; Alkaline Phosphatase 58 U/L (38-126); Anion Gap 16 mmol/L; Blood Urea Nitrogen 10 mg/dL (7-17); Calcium 10.1 mg/dL (8.4-10.2); Carbon Dioxide 21 mmol/L (22-30); Chloride 101 mmol/L (98-107); Glucose 76 mg/dL (74-99); Lipase 24 U/L (23-300); Magnesium 1.8 mg/dL (1.6-2.3); Non-African American GFR(CKD) >90 (>60 ml/min/1.73 sqM); Phosphorus 3.4 mg/dL (2.5-4.5); Potassium 3.9 mmol/L (3.5-5.1); Sodium 138 mmol/L (137-145); Total Bilirubin 1.3 mg/dL (0.2-1.3); Total Protein 8.2 g/dL (6.3-8.2)
[2025-02-27 23:42] LABS: Amphetamine Screen,Urine Not Detected (NotDetected); Barbiturate Screen,Urine Not Detected (NotDetected); Benzodiazepines Screen,Urine Not Detected (NotDetected); Cocaine Screen,Urine Not Detected (NotDetected); Methadone Screen, Urine Not Detected (NotDetected); Opiate Screen,Urine Not Detected (NotDetected); Oxycodone Screen, Urine Not Detected (NotDetected); Phencyclidine Screen,Urine Not Detected (NotDetected); Tricyclic Antidepressant,Urine Not Detected (NotDetected); Urn Cannabinoid Scrn Detected (NotDetected)
[2025-02-28 00:26] VITALS: BP 153/100; PULSE 70; RESP 20; TEMP 98.5
== END 2025-02-28 00:29 | disposition home or self-care (01) ==
LOC: EC 21:29
DX: R42 Dizziness and giddiness (principal); F17.290 Nicotine dependence, other tobacco product, uncomplicated; Z91.011 Allergy to milk products
CPT/HCPCS: 36415; 93005; 80053; 83605; 83690; 83735; 84100; 84484; 85025; 81001; 81025; 80306; 80320; 99285; 96374; 96361; J2405